=== PATIENT | male | born 1950 | race Caucasian/White ===

== ENCOUNTER 2018-05-01 22:11 | Emergency (ER) | payer MEDICARE, BC, SELFPAY ==
[2018-05-01] VITALS (22 sets, daily range): BP systolic 97–212; BP diastolic 52–196; PULSE 89–105; RESP 15–25; TEMP 37.1; O2SAT 98–100
--- NOTE | 2018-05-01 10:30 | DI.CT_ITS ---
SYMPTOM/DIAGNOSIS: RECON. S/P FALL DOWN STAIRS, R/O ACUTE FX CT THORACIC SPINE: The exam was reconstructed from the chest CT. There is a nondisplaced fracture of the proximal portion of the right 1st rib. A nondisplaced fracture of the left transverse process of L2 is noted. There is a minimal fracture involving the anterior superior end plate of T2. A small fracture is seen involving the right anterior aspect of T5. No additional fractures are identified. The end plate osteophytes are seen on the right side. IMPRESSION: Mild compression fractures of the anterior superior end plates of T2 and T5. Left T2 transverse process fracture and right 1st rib fracture. CT LUMBAR SPINE: The exam was reconstructed from the CT of the abdomen and pelvis. No fractures are identified. End plate osteophytes are seen. There are mild facet degenerative changes. IMPRESSION: Degenerative changes. No evidence of fracture.
[2018-05-01] MEDS: Lactated Ringers 1,000 ML 1000 ML IV (22:05)
--- NOTE | 2018-05-01 22:07 | DI.CT_ITS ---
SYMPTOM/DIAGNOSIS: S/P TRAUMA, R/O CHEST/ABD INJURY CT CHEST, ABDOMEN AND PELVIS: There is respiratory motion limiting the exam. No pneumothorax is seen. There is no pleural or pericardial effusion or evidence of pulmonary contusion. There is a nondisplaced fracture of the proximal right 1st rib. Fracture of the left T2 transverse process is seen as well as fracture of the anterior superior end plate of T-2 and T-5. ABDOMEN AND PELVIS: There is motion at the level of the liver and spleen. No solid organ or visceral injury is identified. The prostate is enlarged. The urinary bladder is somewhat distended. There is no free air or free fluid. No spine or pelvic fractures are seen. IMPRESSION: Mild compression fractures of the anterior superior end plates of T2 and T5. Fracture of the left transverse process of T2 and right proximal first rib.
[2018-05-01 22:15] LABS: Abs Immature Grans 0.06 k/cumm (0.0-0.09); Absolute Basophil Count 0.01 k/cumm (0.0-0.2); Absolute Eosinophil Count 0.21 k/cumm (0.0-0.7); Absolute Lymphocyte Count 2.34 k/cumm (1.2-3.4); Absolute Monocyte Count 0.56 k/cumm (0.11-0.7); Absolute Neutrophil Count 4.45 k/cumm (1.2-6.7); Basophils % 0.1; Eosinophils % 2.8; HCT 42.1 % (40.0-50.0); HGB 15.2 g/dL (13.5-17.5); Immature Grans % 0.8; Lymphocytes % 30.7; Mean Corp. HGB Concentration 36.1 g/dL (32.0-36.0); Mean Corpuscular Hemoglobin 32.9 pg (27.0-33.0); Mean Corpuscular Volume 91.1 fL (80-95); Mean Platelet Volume 9.4 fL (8.0-11.0); Monocytes % 7.3; Neutrophils % 58.3; Platelet Count 203 x1000/uL (130-400); RBC 4.62 m/cumm (4.50-6.00); RBC Distribution Width 12.3 % (11.8-14.1); White Blood Cell Count 7.63 k/cumm (4.4-10.8)
[2018-05-01 22:23] LABS: ETHANOL BLOOD 152.6 mg/dL (<3); Lipase 108 U/L (73-393)
[2018-05-01] MEDS: Omnipaque 350 MG/ML 100 ML BTL IJ (22:29)
[2018-05-01 22:30] LABS: ALT 31 U/L (12-78); AST 27 U/L (15-37); Albumin 3.7 g/dL (3.4-5.0); Alkaline Phosphatase 73 U/L (46-116); Anion Gap 14.9 mmol/L (3-11); BUN 14 mg/dL (7-18); Bilirubin, Total 0.4 mg/dL (0.2-1.0); CO2 23.1 mmol/L (21.0-32.0); CREATININE 1.13 mg/dL (0.70-1.30); Calcium 8.8 mg/dL (8.5-10.1); Chloride 103 mmol/L (98-107); Glucose 139 mg/dL (70-100); Potassium 3.7 mmol/L (3.5-5.1); Sodium 141 mmol/L (136-145); Total Protein 7.4 g/dL (6.4-8.2)
[2018-05-01] MEDS: Lidocaine 2% Jelly 6 ML SYR (22:30)
--- NOTE | 2018-05-01 22:30 | DI.CT_ITS ---
SYMPTOM/DIAGNOSIS: S/P HEAD INJURY, R/O ACUTE FRACTURE NONCONTRAST HEAD CT: No intracranial hemorrhage or skull fracture is seen. There is soft tissue swelling as well as air in the soft tissues of the right scalp. No foreign body is seen. The sinuses appear clear. The ventricles are normal in size. IMPRESSION: Large scalp laceration. No evidence of skull fracture, intracranial hemorrhage. CT CERVICAL SPINE: There is a nondisplaced fracture extending transversely through the dens, Type 2. There is also a fracture of the left occipital condyle which shows some comminution but no significant displacement. The alignment appears normal. 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 IMPRESSION: Nondisplaced Type II fracture of dens. Comminuted fracture of the left occipital condyle FACIAL CT: No facial fracture is seen. The exam is somewhat limited by patient motion. IMPRESSION: No evidence of facial fractures.
[2018-05-01 22:31] LABS: Troponin I < 0.02 ng/mL (0.00-0.06)
[2018-05-01 22:45] LABS: Bilirubin Negative (Negative); Blood Moderate (Negative); Clarity Clear; Glucose Negative (Negative); Ketones 15 mg/dL (Negative); Leukocyte Esterase Negative (Negative); Nitrite Negative (Negative); Urobilinogen 0.2 EU/dL (Up TO 0.2)
[2018-05-01 22:47] LABS: Prothrombin Time 9.6 sec (9.3-11.0)
[2018-05-01 22:56] LABS: Epithelial Cells Few HPF (Negative); WBC 0-2 HPF (0-5)
[2018-05-01 22:57] LABS: Bacteria Rare HPF (Negative); C & S Indicated? Yes; Casts Negative LPF (Negative); Crystals Negative HPF (Negative); Mucus Negative (Negative); Other Cells Few Renal (Negative)
[2018-05-01 23:01] LABS: *AMPHETAMINES SCREEN URINE Negative (Negative); *BARBITURATES SCREEN URINE Negative (Negative); *BENZODIAZEPINES SCREEN URINE Negative (Negative); Cannabinoids THC Negative (Negative); Cocaine Screen,Urine Negative (Negative); METHADONE URINE SCREEN Negative (Negative); OPIATES URINE SCREEN Negative (Negative)
[2018-05-01 23:03] LABS: Tricyclic Antidepressants Negative (Negative)
--- NOTE | 2018-05-01 23:11 | DI.VRAD_ITS ---
Addendum created by Zarina Michael MD on 05/01/2018 11:15:05 PM EST Findings discussed with Yvonne Shields 05/01/2018 11:14 PM EST. Initial report created on 05/01/2018 11:11:24 PM EST EXAM: CT Head Without Contrast EXAM DATE/TIME: 05/01/2018 10:07 PM CLINICAL HISTORY: 68 years old, male; Injury or trauma; Fall; Initial encounter; Blunt trauma (contusions or hematomas); Consciousness not specified; Injury date: 05/01/18; Injury details: PT fell down stairs landing on cement. Lacerations and pain in chest abd pelvis TECHNIQUE: Axial computed tomography images of the head/brain without contrast. All CT scans at this facility use at least one of these dose optimization techniques: automated exposure control; mA and/or kV adjustment per patient size (includes targeted exams where dose is matched to clinical indication); or iterative reconstruction. Coronal and sagittal reformatted images were created and reviewed. COMPARISON: No relevant prior studies available. FINDINGS: Brain: Normal. No hemorrhage. No significant white matter disease. No edema. Ventricles: Normal. No ventriculomegaly. Bones/joints: There is a nondisplaced comminuted fracture of the left occipital condyle extending into the atlantooccipital articulation. No other acute fracture. Sinuses: Normal as visualized. No acute sinusitis. Mastoid air cells: Normal as visualized. No mastoid effusion. Soft tissues: Large scalp laceration with subcutaneous emphysema. IMPRESSION: Left occipital condyle fracture. Superficial scalp injury without intra-cranial hemorrhage. EXAM: CT Maxillofacial Without Contrast EXAM DATE/TIME: 05/01/2018 10:07 PM CLINICAL HISTORY: 68 years old, male; Injury or trauma; Fall; Initial encounter; Blunt trauma (contusions or hematomas); Consciousness not specified; Injury date: 05/01/18; Injury details: PT fell down stairs landing on cement. Lacerations and pain in chest abd pelvis TECHNIQUE: Axial computed tomography images of the face without intravenous contrast. All CT scans at this facility use at least one of these dose optimization techniques: automated exposure control; mA and/or kV adjustment per patient size (includes targeted exams where dose is matched to clinical indication); or iterative reconstruction. Coronal and sagittal reformatted images were created and reviewed. COMPARISON: No relevant prior studies available. FINDINGS: Orbits: No acute intraorbital abnormality. Globes are unremarkable. Sinuses: Normal. No air-fluid levels. Bones/joints: No acute fracture. Soft tissues: No significant facial soft tissue swelling. IMPRESSION: No acute abnormality of the facial bones. EXAM: CT Cervical Spine Without Contrast EXAM DATE/TIME: 05/01/2018 10:07 PM CLINICAL HISTORY: 68 years old, male; Injury or trauma; Fall; Initial encounter; Blunt trauma (contusions or hematomas); Consciousness not specified; Injury date: 05/01/18; Injury details: PT fell down stairs landing on cement. Lacerations and pain in chest abd pelvis TECHNIQUE: Axial computed tomography images of the cervical spine without intravenous contrast. All CT scans at this facility use at least one of these dose optimization techniques: automated exposure control; mA and/or kV adjustment per patient size (includes targeted exams where dose is matched to clinical indication); or iterative reconstruction. Coronal and sagittal reformatted images were created and reviewed. COMPARISON: No relevant prior studies available. FINDINGS: Vertebrae: Acute fractures of the left first rib and T1 left transverse process. Nondisplaced acute type II odontoid fracture. Normal alignment. Discs/Spinal canal/Neural foramina: There is moderate multilevel central spinal stenosis, secondary to disc buldge/osteophytic spurring. Soft tissues: Unremarkable. Lungs: Lung apices are normal. IMPRESSION: Nondisplaced acute type II odontoid fracture. Acute nondisplaced T1 left transverse process and left first rib fractures. Dictated and Authenticated by: Zarina Michael MD. Ordering:JANET Russell MD
--- NOTE | 2018-05-01 23:12 | DI.VRAD_ITS ---
EXAM: CT Chest With Contrast EXAM DATE/TIME: 05/01/2018 10:09 PM CLINICAL HISTORY: 68 years old, male; Injury; Initial encounter; Blunt trauma; Injury date: 05/01/17; Injury details: Fell down stairs landing on cement TECHNIQUE: Axial computed tomography images of the chest with intravenous contrast. All CT scans at this facility use at least one of these dose optimization techniques: automated exposure control; mA and/or kV adjustment per patient size (includes targeted exams where dose is matched to clinical indication); or iterative reconstruction. Coronal and sagittal reformatted images were created and reviewed. CONTRAST: 100 ml of Omnipaque 350 administered intravenously. COMPARISON: No relevant prior studies available. FINDINGS: Lungs: Normal. No consolidation. No masses. Pleural space: Normal. No pneumothorax. No pleural effusion. Heart: Normal. No cardiomegaly. No pericardial effusion. Aorta: Normal. No aortic aneurysm. Lymph nodes: Unremarkable. No enlarged lymph nodes. Bones/joints: Acute fracture of the superior aspect of T2 and T5. Nondisplaced acute fracture of the left transverse process of T2. Nondisplaced acute fracture of the left first posteromedial rib. Question fracture of the superior endplate of T3. Soft tissues: Unremarkable. IMPRESSION: 1. Acute fracture of the superior aspect of T2 and T5. 2. Nondisplaced acute fracture of the left transverse process of T2. 3. Nondisplaced acute fracture of the left first posteromedial rib. 4. Question fracture of the superior endplate of T3. 5. No acute intrathoracic findings. EXAM: CT Abdomen and Pelvis With Contrast EXAM DATE/TIME: 05/01/2018 10:09 PM CLINICAL HISTORY: 68 years old, male; Injury; Initial encounter; Blunt trauma; Injury date: 05/01/17; Injury details: Fell down stairs landing on cement TECHNIQUE: Axial computed tomography images of the abdomen and pelvis with intravenous contrast. All CT scans at this facility use at least one of these dose optimization techniques: automated exposure control; mA and/or kV adjustment per patient size (includes targeted exams where dose is matched to clinical indication); or iterative reconstruction. Coronal and sagittal reformatted images were created and reviewed. CONTRAST: 100 ml of Omnipaque 350 administered intravenously. COMPARISON: No relevant prior studies available. FINDINGS: Lower thorax: No acute findings. ABDOMEN: Liver: Normal. No mass. Gallbladder and bile ducts: Normal. No calcified stones. No ductal dilation. Pancreas: Normal. No ductal dilation. Spleen: Normal. No splenomegaly. Adrenals: Normal. No mass. Kidneys and ureters: Normal. No hydronephrosis. Stomach and bowel: Normal. No obstruction. No mucosal thickening. Appendix: No evidence of appendicitis. PELVIS: Bladder: Unremarkable as visualized. Reproductive: Prominent prostate gland measuring 4.9 cm transversely. ABDOMEN and PELVIS: Intraperitoneal space: Normal. No free air. No significant fluid collection. Bones/joints: No acute fracture. Soft tissues: Small fat-containing umbilical hernia. Vasculature: Normal. No abdominal aortic aneurysm. Lymph nodes: Normal. No enlarged lymph nodes. Other findings: Impression. IMPRESSION: 1. No acute fracture. 2. Impression. No acute intra-abdominal or pelvic findings. EXAM: CT Thoracic Spine Without Contrast EXAM DATE/TIME: 05/01/2018 10:09 PM CLINICAL HISTORY: 68 years old, male; Injury; Initial encounter; Blunt trauma; Injury date: 05/01/17; Injury details: Fell down stairs landing on cement TECHNIQUE: Axial computed tomography images of the thoracic spine without intravenous contrast. COMPARISON: No relevant prior studies available. FINDINGS: Vertebrae: Acute fracture of the superior aspect of T2 and T5. Nondisplaced acute fracture of the left transverse process of T2. Nondisplaced acute fracture of the left first posteromedial rib. Question fracture of the superior endplate of T3. Discs/Spinal canal/Neural foramina: No spinal stenosis. No neural foraminal narrowing. Soft tissues: Unremarkable. IMPRESSION: 1. Acute fracture of the superior aspect of T2 and T5. 2. Nondisplaced acute fracture of the left transverse process of T2. 3. Nondisplaced acute fracture of the left first posteromedial rib. 4. Question fracture of the superior endplate of T3. EXAM: CT Lumbar Spine Without Contrast EXAM DATE/TIME: 05/01/2018 10:09 PM CLINICAL HISTORY: 68 years old, male; Injury; Initial encounter; Blunt trauma; Injury date: 05/01/17; Injury details: Fell down stairs landing on cement TECHNIQUE: Axial computed tomography images of the lumbar spine without intravenous contrast. COMPARISON: No relevant prior studies available. FINDINGS: Vertebrae: No acute fracture. Normal alignment. Discs/Spinal canal/Neural foramina: No spinal stenosis. No neural foraminal narrowing. Soft tissues: Unremarkable. IMPRESSION: No acute findings. Dictated and Authenticated by: Mango Gaines MD. Ordering:JANET Russell MD
--- NOTE | 2018-05-01 23:32 | W.ED.GENAD ---
Discharge Plan Disposition Patient Disposition: [facility] Condition: Serious Discharge Details Chief Complaint: Trauma Clinical Impression: Nondisplaced type II dens fracture, Fracture of thoracic vertebra, Fracture of one rib of left side, Closed occipital fracture, Fall at home, Alcohol intoxication Reason For Visit: LEN Primary Care Provider: Peggy Breaux ED Provider: Yvonne Shields Home Meds and New Rx's Prescriptions: No Action aspirin [Aspirin Low-Strength] 81 MG tablet,chewable 81 mg PO DAILY RF: 0 multivitamin [Daily Vitamin] 1 EACH tablet 1 ea PO RF: 0 triamcinolone acetonide 15 GM cream 1 film Topical 2-4 times daily PRN Qty: 2 RF: 1 sildenafil [Viagra] 100 MG tablet 50 mg PO DAILY PRNQty: 10 RF: 3 Discharge Data Discharge Date/Time-TO BE ENTERED AT DEPARTURE: 05/02/18 00:34 Medical Decision Making 68yo M w/ no past medical history who presents with head injury and neck pain s/p fall down 12 stairs at home while intoxicated. Pt was able to ambulate back to bed after fall. He was found by family. Pt is normally A & O x4, and is was A & O x2 per ems and on arrival to ED. States it is 2018 and does not recall events tonight. States he drank 4 beers. He is c/o only of neck pain. His vitals are within normal limits. His airway is intact and he is speaking in full sentences. He has a significantly large scalp laceration and no c-spine tenderness. Chest and abdomen nontender. He is moving all extremities. There is no obvious extremity injury or deformity. Main concern at this point would be for skull fracture, brain injury, spine fractures, chest or abdomen injury. Will place an IV, bolus IV fluids, labs, EKG, alcohol, tetanus, and CT imaging. 2314 --labs and imaging reviewed. Alcohol 152. Remainder of labs unremarkable. CT imaging notes a non-displaced type II odontoid fracture, left occipital condyle fracture, and acute nondisplaced T1 left transverse process fracture, and acute fracture of superior aspect of T2 and T5, left transverse process fracture of T2, nondisplaced acute fracture of left first posterior medial rib, and questionable fracture of superior endplate of T3. Remainder of chest and abdomen unremarkable. Facial bone CT unremarkable. 2335 -- d/w [facility] trauma - accepting physician Dr. Holguin. As patient is awake alert, oriented, hemodynamically stable and moving all extremities, do not see an indication for transfer by [facility] and trauma physician is agreeable. He states based on patient's injuries, they are nonoperative, and will likely observe the next 1-2 days, and discharge if remainder of stay uneventful. Medical Records Medical records reviewed: Yes I reviewed the patient's medical records. Imaging Data Radiologic Study: Radiologist's impression: CT Head Without Contrast FINDINGS: Brain: Normal. No hemorrhage. No significant white matter disease. No edema. Ventricles: Normal. No ventriculomegaly. Bones/joints: There is a nondisplaced comminuted fracture of the left occipital condyle extending into the atlantooccipital articulation. No other acute fracture. MAEVE HARRELL Preliminary Radiology Report Page 2 of 3 Sinuses: Normal as visualized. No acute sinusitis. Mastoid air cells: Normal as visualized. No mastoid effusion. Soft tissues: Large scalp laceration with subcutaneous emphysema. IMPRESSION: Left occipital condyle fracture. Superficial scalp injury without intra-cranial hemorrhage. CT Maxillofacial Without Contrast EXAM DATE/TIME: 05/01/2018 10:07 PM FINDINGS: Orbits: No acute intraorbital abnormality. Globes are unremarkable. Sinuses: Normal. No air-fluid levels. Bones/joints: No acute fracture. Soft tissues: No significant facial soft tissue swelling. IMPRESSION: No acute abnormality of the facial bones. CT Cervical Spine Without Contrast FINDINGS: Vertebrae: Acute fractures of the left first rib and T1 left transverse process. Nondisplaced acute type II odontoid fracture. Normal alignment. Discs/Spinal canal/Neural foramina: There is moderate multilevel central spinal stenosis, secondary to disc buldge/osteophytic spurring. Soft tissues: Unremarkable. Lungs: Lung apices are normal. IMPRESSION: Nondisplaced acute type II odontoid fracture. Acute nondisplaced T1 left transverse process and left first rib fractures. CT Chest With Contrast EXAM DATE/TIME: 05/01/2018 10:09 PM FINDINGS: Lungs: Normal. No consolidation. No masses. Pleural space: Normal. No pneumothorax. No pleural effusion. Heart: Normal. No cardiomegaly. No pericardial effusion. Aorta: Normal. No aortic aneurysm. Lymph nodes: Unremarkable. No enlarged lymph nodes. Bones/joints: Acute fracture of the superior aspect of T2 and T5. Nondisplaced acute fracture of the left transverse process of T2. Nondisplaced acute fracture of the left first posteromedial rib. Question fracture of the superior endplate of T3. Soft tissues: Unremarkable. IMPRESSION: 1. Acute fracture of the superior aspect of T2 and T5. 2. Nondisplaced acute fracture of the left transverse process of T2. 3. Nondisplaced acute fracture of the left first posteromedial rib. 4. Question fracture of the superior endplate of T3. 5. No acute intrathoracic findings. CT Abdomen and Pelvis With Contrast FINDINGS: Lower thorax: No acute findings. ABDOMEN: Liver: Normal. No mass. Gallbladder and bile ducts: Normal. No calcified stones. No ductal dilation. Pancreas: Normal. No ductal dilation. Spleen: Normal. No splenomegaly. Adrenals: Normal. No mass. Kidneys and ureters: Normal. No hydronephrosis. Stomach and bowel: Normal. No obstruction. No mucosal thickening. Appendix: No evidence of appendicitis. PELVIS: Bladder: Unremarkable as visualized. Reproductive: Prominent prostate gland measuring 4.9 cm transversely. ABDOMEN and PELVIS: Intraperitoneal space: Normal. No free air. No significant fluid collection. Bones/joints: No acute fracture. Soft tissues: Small fat-containing umbilical hernia. Vasculature: Normal. No abdominal aortic aneurysm. Lymph nodes: Normal. No enlarged lymph nodes. Other findings: Impression. IMPRESSION: 1. No acute fracture. 2. No acute intra-abdominal or pelvic findings. CT Thoracic Spine Without Contrast FINDINGS: Vertebrae: Acute fracture of the superior aspect of T2 and T5. Nondisplaced acute fracture of the left transverse process of T2. Nondisplaced acute fracture of the left first posteromedial rib. Question fracture of the superior endplate of T3. Discs/Spinal canal/Neural foramina: No spinal stenosis. No neural foraminal narrowing. Soft tissues: Unremarkable. IMPRESSION: 1. Acute fracture of the superior aspect of T2 and T5. 2. Nondisplaced acute fracture of the left transverse process of T2. 3. Nondisplaced acute fracture of the left first posteromedial rib. 4. Question fracture of the superior endplate of T3. CT Lumbar Spine Without Contrast FINDINGS: Vertebrae: No acute fracture. Normal alignment. Discs/Spinal canal/Neural foramina: No spinal stenosis. No neural foraminal narrowing. Soft tissues: Unremarkable. IMPRESSION: No acute findings. Lab Data Lab results reviewed: Yes I reviewed the patient's lab results. 05/01/18 22:34 Urine - Reflex from Ua Urine Culture - Pending Laboratory Tests Range/Units 05/01/18 05/01/18 05/01/18 22:00 22:00 22:00 WBC (4.4-10.8) k/cumm RBC (4.50-6.00) m/cumm Hgb (13.5-17.5) g/dL Hct (40.0-50.0) % MCV (80-95) fL MCH (27.0-33.0) pg MCHC (32.0-36.0) g/dL RDW (11.8-14.1) % Plt Count (130-400) x1000/uL MPV (8.0-11.0) fL Immature Gran % Neutrophils % Lymphocytes % Monocytes % Eosinophils % Basophils % Absolute Neutrophils (1.2-6.7) k/cumm Absolute Lymphocytes (1.2-3.4) k/cumm Absolute Monocytes (0.11-0.7) k/cumm Absolute Eosinophils (0.0-0.7) k/cumm Absolute Basophils (0.0-0.2) k/cumm PT (9.3-11.0) sec 9.6 INR (0.9-1.1) 1.0 APTT (21.0-31.4) sec 19.4 L Sodium (136-145) mmol/L 141 Potassium (3.5-5.1) mmol/L 3.7 Chloride (98-107) mmol/L 103 Carbon Dioxide (21.0-32.0) mmol/L 23.1 Anion Gap (3-11) mmol/L 14.9 H BUN (7-18) mg/dL 14 Creatinine (0.70-1.30) mg/dL 1.13 Estimated GFR/1.73 m2 (mL/min/1.73m2) >= 60.00 Glucose (70-100) mg/dL 139 H Calcium (8.5-10.1) mg/dL 8.8 Magnesium (1.8-2.4) mg/dL 2.0 Total Bilirubin (0.2-1.0) mg/dL 0.4 AST (15-37) U/L 27 ALT (12-78) U/L 31 Alkaline Phosphatase (46-116) U/L 73 Troponin I (0.00-0.06) ng/mL < 0.02 Total Protein (6.4-8.2) g/dL 7.4 Albumin (3.4-5.0) g/dL 3.7 Lipase (73-393) U/L 108 Urine Color (Yellow) Urine Clarity Urine pH (5-8) Ur Specific [place] (1.005-1.025) Urine Protein (Negative) mg/dL Urine Ketones (Negative) mg/dL Urine Blood (Negative) Urine Nitrite (Negative) Urine Bilirubin (Negative) Urine Urobilinogen (Up TO 0.2) EU/dL Ur Leukocyte Esterase (Negative) Urine RBC (0-2) Urine WBC (0-5) HPF Ur Epithelial Cells (Negative) HPF Urine Crystals (Negative) HPF Urine Bacteria (Negative) HPF Urine Casts (Negative) LPF Urine Mucus (Negative) Urine Other (Negative) Ur Culture Indicated? Urine Glucose (Negative) mg/dL Urine Opiates Screen (Negative) Urine Methadone Screen (Negative) Ur Barbiturates Screen (Negative) Ur Tricyclics Screen (Negative) Ur Amphetamines Screen (Negative) U Benzodiazepines Scrn (Negative) Urine Cocaine Screen (Negative) Ur THC Screen (Negative) Ethyl Alcohol (<3) mg/dL 152.6 Range/Units 05/01/18 05/01/18 05/01/18 22:00 22:34 22:34 WBC (4.4-10.8) k/cumm 7.63 RBC (4.50-6.00) m/cumm 4.62 Hgb (13.5-17.5) g/dL 15.2 Hct (40.0-50.0) % 42.1 MCV (80-95) fL 91.1 MCH (27.0-33.0) pg 32.9 MCHC (32.0-36.0) g/dL 36.1 H RDW (11.8-14.1) % 12.3 Plt Count (130-400) x1000/uL 203 MPV (8.0-11.0) fL 9.4 Immature Gran % 0.8 Neutrophils % 58.3 Lymphocytes % 30.7 Monocytes % 7.3 Eosinophils % 2.8 Basophils % 0.1 Absolute Neutrophils (1.2-6.7) k/cumm 4.45 Absolute Lymphocytes (1.2-3.4) k/cumm 2.34 Absolute Monocytes (0.11-0.7) k/cumm 0.56 Absolute Eosinophils (0.0-0.7) k/cumm 0.21 Absolute Basophils (0.0-0.2) k/cumm 0.01 PT (9.3-11.0) sec INR (0.9-1.1) APTT (21.0-31.4) sec Sodium (136-145) mmol/L Potassium (3.5-5.1) mmol/L Chloride (98-107) mmol/L Carbon Dioxide (21.0-32.0) mmol/L Anion Gap (3-11) mmol/L BUN (7-18) mg/dL Creatinine (0.70-1.30) mg/dL Estimated GFR/1.73 m2 (mL/min/1.73m2) Glucose (70-100) mg/dL Calcium (8.5-10.1) mg/dL Magnesium (1.8-2.4) mg/dL Total Bilirubin (0.2-1.0) mg/dL AST (15-37) U/L ALT (12-78) U/L Alkaline Phosphatase (46-116) U/L Troponin I (0.00-0.06) ng/mL Total Protein (6.4-8.2) g/dL Albumin (3.4-5.0) g/dL Lipase (73-393) U/L Urine Color (Yellow) Yellow Urine Clarity Clear Urine pH (5-8) 7.0 Ur Specific [place] (1.005-1.025) 1.010 Urine Protein (Negative) mg/dL Negative Urine Ketones (Negative) mg/dL 15 H Urine Blood (Negative) Moderate H Urine Nitrite (Negative) Negative Urine Bilirubin (Negative) Negative Urine Urobilinogen (Up TO 0.2) EU/dL 0.2 Ur Leukocyte Esterase (Negative) Negative Urine RBC (0-2) 5-10 H Urine WBC (0-5) HPF 0-2 Ur Epithelial Cells (Negative) HPF Few Urine Crystals (Negative) HPF Negative Urine Bacteria (Negative) HPF Rare Urine Casts (Negative) LPF Negative Urine Mucus (Negative) Negative Urine Other (Negative) Few renal Ur Culture Indicated? Yes Urine Glucose (Negative) mg/dL Negative Urine Opiates Screen (Negative) Negative Urine Methadone Screen (Negative) Negative Ur Barbiturates Screen (Negative) Negative Ur Tricyclics Screen (Negative) Negative Ur Amphetamines Screen (Negative) Negative U Benzodiazepines Scrn (Negative) Negative Urine Cocaine Screen (Negative) Negative Ur THC Screen (Negative) Negative Ethyl Alcohol (<3) mg/dL ECG Data Attestation: I personally reviewed and interpreted this ECG (s) as follows: Interpretation: rate of 98, artifact. appears sinus, no acute ST elevation or depression. QTc 420, QRS 104 HPI General Mode of arrival: ambulatory. Date/Time Provider Initiated Documentation: 05/01/18 22:21. Limitations to Documentation: no limitations. Information obtained by: patient. HPI Narrative: Patient is a 68-year-old male with no past medical history who presents after a fall down 12 stairs at home while intoxicated. Patient states he remembers being at a bar [employer] in which she had approximately 4 beers but does not remember anything until traveling in the ambulance on the way here. EMS states they were called by family member who checked on patient veda and found him in bed with blood around his head. He apparently had fallen down approximately 12 stairs onto a cement floor at home. Patient states he does not member any of these events. EMS states that patient is a and O x4 at baseline, and was a and O x2 per their assessment. Patient denies any headache and is complaining only of neck pain. He denies any chest or abdominal pain. Related Data Home Medications Medication Instructions Recorded Confirmed aspirin [Aspirin Low-Strength] 81 mg PO DAILY tab-cap 04/21/13 05/01/18 multivitamin [Daily Vitamin] 1 ea PO 04/21/13 triamcinolone acetonide 1 film TOPICAL 2-4 times daily PRN 04/22/17 05/01/18 #2 tube sildenafil [Viagra] 50 mg PO DAILY PRN #10 tab 06/09/17 05/01/18 Previous Rx's Medication Instructions Recorded triamcinolone acetonide 1 film TOPICAL 2-4 times daily PRN 04/22/17 #2 tube Allergies Allergy/AdvReac Type Severity Reaction Status Date / Time No Known Allergies Allergy Unverified 05/01/18 22:04 General Stated Complaint: Trauma VONNIE: 2 Review of Systems Review of Systems All systems reviewed & are unremarkable except as noted in HPI and below Constitutional Reports as per HPI, Denies chills and Denies fever(s) Eyes Denies blurry vision ENT Denies dizziness, Reports neck pain, Denies sore throat and Denies throat swelling Cardiovascular Denies chest pain and Denies dyspnea Respiratory Denies dyspnea Gastrointestinal Denies abdominal pain, Denies diarrhea and Denies vomiting Genitourinary Denies hematuria and Denies dysuria Musculoskeletal Denies back pain, Reports neck pain and Denies numbness Integumentary/Breasts Denies lesions and Denies rash Neurologic Denies dizziness and Denies numbness Allergic/Immunologic Denies throat swelling [facility] Medical History No significant past medical history (Acute) Surgical History No significant past surgical history (Acute) Colonoscopy - IV Sedation (~2005) Family History Father Alcohol abuse Personal history of malignant neoplasm Social History Smoking/Tobacco Use Status: Never alcohol intake: current alcohol intake frequency: a few times a month substance use type: does not use Exam Const General: cooperative, healthy appearing, anxious and other (hyperventilating) Orientation: alert, awake, oriented to person, oriented to place and other (states thought 2018 or 2019) [facility] Head: normal to inspection Head images: 1. extensive large laceration down to skull, approximately 20cm extending from R side of forehead back to occipital region. Portion in center of lac stellate and jagged. Ears: hearing grossly normal bilaterally, external ears normal and TM's normal bilaterally General nose exam: external nose normal Face and sinus: normal facial exam Mouth: oral mucosae normal Teeth and gingiva: dentition normal Eyes General: appearance normal, both eyes and all related structures Eyelids: eyelids normal Pupils: PERRL EOM: EOM intact bilaterally Neck Neck: normal visual inspection Lymphatic: no lymphadenopathy noted Chest Chest: normal inspection of the chest and no tenderness Resp Effort & Inspection: normal respiratory effort and able to speak in complete sentences Auscultation: clear to auscultation bilaterally Cardio Rate: regular rate Rhythm: regular rhythm GI Inspection: normal to inspection Palpation: soft, not firm, no guarding, no hepatosplenomegaly, no masses and nontender Auscultation: normal bowel sounds Back/Spine/Pelvis Thoracic/Lumbar Spine: No thoracic spinal tenderness and No lumbar spinal tenderness Pelvis: no pain with anterior-posterior compression and other (no pelvis instability ) Coccyx: other (no pelvis instability ) Skin General skin exam: no rashes or lesions noted Neuro General: alert, awake, oriented Patient Orientation: Person and Place and moves all extremities Cognition: normal cognition Speech: speech normal Gait: normal gait Motor: muscle tone normal throughout and strength 5/5 throughout Sensory Exam: no sensory deficits noted Extrem General: normal to inspection, full ROM and normal capillary refill Psych Appearance: grossly normal Mental Status: mental status grossly normal Speech and Movement: speech and movement normal Affect: normal affect Thought Process: normal Course Vital Signs Temperature 98.8 F 05/01/18 22:05 Pulse 98 H 05/01/18 22:05 Respiratory Rate 24 05/01/18 22:05 Blood Pressure 136/99 H 05/01/18 22:05 Pulse Oximetry 98 05/01/18 22:05 Temperature 98.8 F 05/01/18 22:05 Pulse 97 H 05/01/18 23:16 Pulse 100 H 05/01/18 23:20 Respiratory Rate 25 H 05/01/18 23:20 Respiratory Effort 05/01/18 23:07 Respiratory Depth Normal 05/01/18 23:07 Respiratory Pattern Normal 05/01/18 23:07 Blood Pressure 155/125 H 05/01/18 23:16 Blood Pressure Mean 133 05/01/18 23:16 Blood Pressure Position Supine 05/01/18 22:05 Pulse Oximetry 99 05/01/18 23:20 Oxygen Delivery Method Room Air 05/01/18 23:06 Oxygen Flow Rate 0 05/01/18 23:06 Pain Level 0 05/01/18 22:52 Lab/Test Results Lab/Test Results: 05/01/18 22:34 Urine - Reflex from Ua Urine Culture - Pending Laboratory Tests Range/Units 05/01/18 05/01/18 05/01/18 22:00 22:00 22:00 WBC (4.4-10.8) k/cumm RBC (4.50-6.00) m/cumm Hgb (13.5-17.5) g/dL Hct (40.0-50.0) % MCV (80-95) fL MCH (27.0-33.0) pg MCHC (32.0-36.0) g/dL RDW (11.8-14.1) % Plt Count (130-400) x1000/uL MPV (8.0-11.0) fL Immature Gran % Neutrophils % Lymphocytes % Monocytes % Eosinophils % Basophils % Absolute Neutrophils (1.2-6.7) k/cumm Absolute Lymphocytes (1.2-3.4) k/cumm Absolute Monocytes (0.11-0.7) k/cumm Absolute Eosinophils (0.0-0.7) k/cumm Absolute Basophils (0.0-0.2) k/cumm PT (9.3-11.0) sec 9.6 INR (0.9-1.1) 1.0 Sodium (136-145) mmol/L 141 Potassium (3.5-5.1) mmol/L 3.7 Chloride (98-107) mmol/L 103 Carbon Dioxide (21.0-32.0) mmol/L 23.1 Anion Gap (3-11) mmol/L 14.9 H BUN (7-18) mg/dL 14 Creatinine (0.70-1.30) mg/dL 1.13 Estimated GFR/1.73 m2 (mL/min/1.73m2) >= 60.00 Glucose (70-100) mg/dL 139 H Calcium (8.5-10.1) mg/dL 8.8 Magnesium (1.8-2.4) mg/dL 2.0 Total Bilirubin (0.2-1.0) mg/dL 0.4 AST (15-37) U/L 27 ALT (12-78) U/L 31 Alkaline Phosphatase (46-116) U/L 73 Troponin I (0.00-0.06) ng/mL < 0.02 Total Protein (6.4-8.2) g/dL 7.4 Albumin (3.4-5.0) g/dL 3.7 Lipase (73-393) U/L 108 Urine Color (Yellow) Urine Clarity Urine pH (5-8) Ur Specific [place] (1.005-1.025) Urine Protein (Negative) mg/dL Urine Ketones (Negative) mg/dL Urine Blood (Negative) Urine Nitrite (Negative) Urine Bilirubin (Negative) Urine Urobilinogen (Up TO 0.2) EU/dL Ur Leukocyte Esterase (Negative) Urine RBC (0-2) Urine WBC (0-5) HPF Ur Epithelial Cells (Negative) HPF Urine Crystals (Negative) HPF Urine Bacteria (Negative) HPF Urine Casts (Negative) LPF Urine Mucus (Negative) Urine Other (Negative) Ur Culture Indicated? Urine Glucose (Negative) mg/dL Urine Opiates Screen (Negative) Urine Methadone Screen (Negative) Ur Barbiturates Screen (Negative) Ur Tricyclics Screen (Negative) Ur Amphetamines Screen (Negative) U Benzodiazepines Scrn (Negative) Urine Cocaine Screen (Negative) Ur THC Screen (Negative) Ethyl Alcohol (<3) mg/dL 152.6 Range/Units 05/01/18 05/01/18 05/01/18 22:00 22:34 22:34 WBC (4.4-10.8) k/cumm 7.63 RBC (4.50-6.00) m/cumm 4.62 Hgb (13.5-17.5) g/dL 15.2 Hct (40.0-50.0) % 42.1 MCV (80-95) fL 91.1 MCH (27.0-33.0) pg 32.9 MCHC (32.0-36.0) g/dL 36.1 H RDW (11.8-14.1) % 12.3 Plt Count (130-400) x1000/uL 203 MPV (8.0-11.0) fL 9.4 Immature Gran % 0.8 Neutrophils % 58.3 Lymphocytes % 30.7 Monocytes % 7.3 Eosinophils % 2.8 Basophils % 0.1 Absolute Neutrophils (1.2-6.7) k/cumm 4.45 Absolute Lymphocytes (1.2-3.4) k/cumm 2.34 Absolute Monocytes (0.11-0.7) k/cumm 0.56 Absolute Eosinophils (0.0-0.7) k/cumm 0.21 Absolute Basophils (0.0-0.2) k/cumm 0.01 PT (9.3-11.0) sec INR (0.9-1.1) Sodium (136-145) mmol/L Potassium (3.5-5.1) mmol/L Chloride (98-107) mmol/L Carbon Dioxide (21.0-32.0) mmol/L Anion Gap (3-11) mmol/L BUN (7-18) mg/dL Creatinine (0.70-1.30) mg/dL Estimated GFR/1.73 m2 (mL/min/1.73m2) Glucose (70-100) mg/dL Calcium (8.5-10.1) mg/dL Magnesium (1.8-2.4) mg/dL Total Bilirubin (0.2-1.0) mg/dL AST (15-37) U/L ALT (12-78) U/L Alkaline Phosphatase (46-116) U/L Troponin I (0.00-0.06) ng/mL Total Protein (6.4-8.2) g/dL Albumin (3.4-5.0) g/dL Lipase (73-393) U/L Urine Color (Yellow) Yellow Urine Clarity Clear Urine pH (5-8) 7.0 Ur Specific [place] (1.005-1.025) 1.010 Urine Protein (Negative) mg/dL Negative Urine Ketones (Negative) mg/dL 15 H Urine Blood (Negative) Moderate H Urine Nitrite (Negative) Negative Urine Bilirubin (Negative) Negative Urine Urobilinogen (Up TO 0.2) EU/dL 0.2 Ur Leukocyte Esterase (Negative) Negative Urine RBC (0-2) 5-10 H Urine WBC (0-5) HPF 0-2 Ur Epithelial Cells (Negative) HPF Few Urine Crystals (Negative) HPF Negative Urine Bacteria (Negative) HPF Rare Urine Casts (Negative) LPF Negative Urine Mucus (Negative) Negative Urine Other (Negative) Few renal Ur Culture Indicated? Yes Urine Glucose (Negative) mg/dL Negative Urine Opiates Screen (Negative) Negative Urine Methadone Screen (Negative) Negative Ur Barbiturates Screen (Negative) Negative Ur Tricyclics Screen (Negative) Negative Ur Amphetamines Screen (Negative) Negative U Benzodiazepines Scrn (Negative) Negative Urine Cocaine Screen (Negative) Negative Ur THC Screen (Negative) Negative Ethyl Alcohol (<3) mg/dL Critical Care Time Total Critical Care Time: 30
[2018-05-02] VITALS: PULSE 104; RESP 14; O2SAT 99
[2018-05-02 00:01] VITALS: BP 152/74; PULSE 101; PULSE 105; RESP 9; O2SAT 99
[2018-05-02 00:10] VITALS: PULSE 102; RESP 17; O2SAT 96
[2018-05-02 00:16] VITALS: BP 132/109; PULSE 102; PULSE 108; RESP 13
[2018-05-02 00:24] LABS: PTT Activated 19.4 sec (21.0-31.4)
== END 2018-05-02 00:34 | disposition short-term general hospital (02) ==
PROVIDERS: Emergency Provider Physician Assistant; PCP Nurse Practitioner Family
DX: S12.112A Nondisplaced Type II dens fracture, initial encounter for closed fracture (principal); S02.113A Unspecified occipital condyle fracture, initial encounter for closed fracture; S22.018A Other fracture of first thoracic vertebra, initial encounter for closed fracture; S22.32XA Fracture of one rib, left side, initial encounter for closed fracture; S22.028A Other fracture of second thoracic vertebra, initial encounter for closed fracture; S22.058A Other fracture of T5-T6 vertebra, initial encounter for closed fracture; S01.01XA Laceration without foreign body of scalp, initial encounter; R40.2412 Glasgow coma scale score 13-15, at arrival to emergency department; F10.120 Alcohol abuse with intoxication, uncomplicated; Y90.6 Blood alcohol level of 120-199 mg/100 ml; W10.8XXA Fall (on) (from) other stairs and steps, initial encounter
CPT/HCPCS: 36415; 74177; 80053; 80307; 83690; 93005; 96360; 96361; 99291; 70450; 70486; 71260; 72125; 80320; 81003; 81015; 83735; 84484; 85025; 85610; 85730; 87086; 93010; J3490

== ENCOUNTER 2018-05-06 15:15 | Inpatient (IN) | payer MEDICARE, BC, SELFPAY ==
[2018-05-06 15:00] VITALS: BP 155/93; PULSE 75; RESP 18; TEMP 36.8; O2SAT 99
--- NOTE | 2018-05-06 15:50 | CM.SBPSYCH ---
- If Service Date Differs Date of service: 05/06/18 Time of Service: 15:50 SB Psychosocial/Act.Assessment - Hospital Admission Admission Date: 05/06/18 Admission From:: [facility] Diagnosis:: S/P Multiple Trauma - Swing Bed Admission Swing Bed Admit Date:: 05/06/18 Swing Bed Level of Care: Level 1/SNF - Social Supports PREVIOUS FUNCTIONAL STATUS/SOCIAL/FAMILY SUPPORTS:: Hai resides in [place], [place]. He is and reports a son and daughter who reside locally, as well as grandchildren. 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 He is independent with all ADLs at baseline and reports wanting to return to work duties as soon as possible. - Prior to Admission Living Arrangements/Environment Prior to Admission:: aHi resides in his own home and was independent with all ADLs prior to this injury/event. 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 Voacation:: [employer] - [place]: No [place]'s Spouse: No - Benefits Financial: Medicare, Commerical ([facility]) - [employer] Active Religion Member:: No Religion Affliation: Baptist Will Religion Members or Unit Educator Visit:: No - Advance Directives for Healthcare If no AD, do you want more information:: Yes - Interests Hobbies:: Active; workouts 3x/wk, spending time with family - Present Functional Status Physical Abilities:: Limited due to precautions Cognitive:: mTBI-requiring low stimulation Communication:: appropriate Behavior:: appropriate - Medical History PAST MEDICAL HISTORY/PAST SURGICAL HISTORY:: No significant PMH General Health:: In recovery-good baseline health Past Psychiatric Treatment:: N/A Other:: Hai reports some dream like sequences when falling asleep, reports no current nightmares or anxiety post trauma. Shares some dizziness and vertigo as well as random pain throughout his head and face - Admission Data Reason for Swing Bed Admission:: PT/OT post traumatic fall resulting in multiple fractures-requires Hard Collar with C-spine precautions Discharge Plan:: Home with VNA supports when ready per MD/PT/OT. Assessment: Short term rehab to accomodate post trauma precautions and recovery. Hai will require close monitoring of symptoms to ensure no further issues during recovery. Kiln Puller: Codie Holt Date Assessment was completed:: 05/06/18
--- NOTE | 2018-05-06 16:33 | W.PM.HP.N ---
Date of service: 05/06/18 Time of Service: 16:36 Assessment and Plan (1) Dens fracture: Current visit: Yes Status: Acute Needs to wear Cervical Collar intact essentially at all times, with limited activity to include no bending, twisting, or lifting. Instructions on care, showering, etc. provided in detail by [facility] - noted and to be followed. Will require inpatient physical therapy prior to discharge for SNF. Follow-up imaging as scheduled by [facility]. (2) Scalp laceration: Current visit: Yes Status: Acute Needs front 5 edwige removed on 05/07 to reduce prominence of scar - order placed. Remainder of edwige to be removed at a later time. (3) Alcohol use: Current visit: Yes Status: Acute Patient with intoxication both by history and by subsequent alcohol level on the night of his fall. Does not appear to have an abuse history, merely intoxicated on the night of his fall. No prior history of withdrawl in the past. Doubt need for CIWA protocol, but will monitor for any signs of withdrawl while he is hospitalized. (4) Closed fracture of thoracic vertebral body: Current visit: Yes Status: Acute (5) Vertebral artery occlusion: Current visit: Yes Status: Acute Noted left Occipital Condyle fracture and left vertebral artery occlusion/dissection. (6) DVT prophylaxis: Current visit: Yes Status: Acute SCDs. Patient is ambulatory. History of Present Illness Chief Complaint: Fall, Cervical Fracture Narrative: Pleasant 68 year old man with a past medical history significant for likely excessive alcohol use without true ETOH abuse, presents as transfer from [facility] for Swing bed placement. Mr. Taylor was initially seen on 05/02 at [facility] Emergency Department after a fall at home. He has a history of 2 glass consumption of wine nightly. On the night of his presentation he had been out at the [employer] watching the football game. He admitted to become slightly inebriated, and upon return home suffered a fall down the stairs of his basement. He suffered a LOC, and upon regaining consciousness apparently crawled up the stairs and returned to bed. His girlfriend then called his daughter who came by and found him to be bleeding and with a large scalp laceration, and he was transported to the ED via EMS for further evaluation. Further evaluation revealed evidence of a type II Dens Fracture. The patient was transferred to [facility] for close monitoring. Following a 4 day hospitalization at [facility] Mr. Taylor is transferred back for a Swing Bed admission for further inpatient Physical Therapy prior to discharge to a SNF. Final diagnosis at time of discharge is a minimally displaced Type II Dens Fracture, Comminuted fracture of the left occipital condyle, Left sided 1st and 2nd rib fracture, T2 & T5 Vertebral Body Fractures, and a complex Scalp Laceration. There is also note of a left Vertebral Artery Occlusion/Dissection. Review of Systems Review of Systems All systems reviewed & are unremarkable except as noted in HPI and below and Unobtainable due to (Varying degrees of neck pain pending type of activity. ) [facility] Medical History No significant past medical history (Acute) Surgical History No significant past surgical history (Acute) Colonoscopy - IV Sedation (~2005) Family History Father Alcohol abuse Personal history of malignant neoplasm Social History Smoking/Tobacco Use Status: Never alcohol intake: current alcohol intake frequency: a few times a month substance use type: does not use Meds Home Medications Medication Instructions Recorded Confirmed Type aspirin [Aspirin Low-Strength] 81 mg PO DAILY tab-cap 04/21/13 05/01/18 History multivitamin [Daily Vitamin] 1 ea PO 04/21/13 History triamcinolone acetonide 1 film TOPICAL 2-4 times daily PRN 04/22/17 05/01/18 Rx #2 tube sildenafil [Viagra] 50 mg PO DAILY PRN #10 tab 06/09/17 05/01/18 History Allergies Allergy/AdvReac Type Severity Reaction Status Date / Time No Known Allergies Allergy Unverified 05/01/18 22:04 Exam Narrative Exam Narrative: General: Patient appears comfortable, AAOX3, NAD. Cervical Collar in place. Neck: Supple CV: Regular, nontachycardic, S1S2, No rubs, murmurs, or gallops. Pulmonary: Clear to auscultation bilaterally, no crackles, wheezing, or rhonchi Abdomen: + Bowel Sounds, soft, nontender, nondistended Vascular: No lower extremity edema Psych: Normal mood and affect. Results Imaging Additional studies: Exam(s) a CT:CT thoracic & lumbar spine rec SYMPTOM/DIAGNOSIS: RECON. S/P FALL DOWN STAIRS, R/O ACUTE FX CT THORACIC SPINE: The exam was reconstructed from the chest CT. There is a nondisplaced fracture of the proximal portion of the right 1st rib. A nondisplaced fracture of the left transverse process of L2 is noted. There is a minimal fracture involving the anterior superior end plate of T2. A small fracture is seen involving the right anterior aspect of T5. No additional fractures are identified. The end plate osteophytes are seen on the right side. IMPRESSION: Mild compression fractures of the anterior superior end plates of T2 and T5. Left T2 transverse process fracture and right 1st rib fracture. CT LUMBAR SPINE: The exam was reconstructed from the CT of the abdomen and pelvis. No fractures are identified. End plate osteophytes are seen. There are mild facet degenerative changes. IMPRESSION: Degenerative changes. No evidence of fracture. Exam(s) a CT:CT chest/abd/pel w SYMPTOM/DIAGNOSIS: S/P TRAUMA, R/O CHEST/ABD INJURY CT CHEST, ABDOMEN AND PELVIS: There is respiratory motion limiting the exam. No pneumothorax is seen. There is no pleural or pericardial effusion or evidence of pulmonary contusion. There is a nondisplaced fracture of the proximal right 1st rib. Fracture of the left T2 transverse process is seen as well as fracture of the anterior superior end plate of T-2 and T-5. ABDOMEN AND PELVIS: There is motion at the level of the liver and spleen. No solid organ or visceral injury is identified. The prostate is enlarged. The urinary bladder is somewhat distended. There is no free air or free fluid. No spine or pelvic fractures are seen. IMPRESSION: Mild compression fractures of the anterior superior end plates of T2 and T5. Fracture of the left transverse process of T2 and right proximal first rib. Exam(s) a CT:CT head cerv spine & facial wo SYMPTOM/DIAGNOSIS: S/P HEAD INJURY, R/O ACUTE FRACTURE NONCONTRAST HEAD CT: No intracranial hemorrhage or skull fracture is seen. There is soft tissue swelling as well as air in the soft tissues of the right scalp. No foreign body is seen. The sinuses appear clear. The ventricles are normal in size. IMPRESSION: Large scalp laceration. No evidence of skull fracture, intracranial hemorrhage. CT CERVICAL SPINE: There is a nondisplaced fracture extending transversely through the dens, Type 2. There is also a fracture of the left occipital condyle which shows some comminution but no significant displacement. The alignment appears normal. 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 IMPRESSION: Nondisplaced Type II fracture of dens. Comminuted fracture of the left occipital condyle FACIAL CT: No facial fracture is seen. The exam is somewhat limited by patient motion. IMPRESSION: No evidence of facial fractures.
--- NOTE | 2018-05-06 16:38 | HPE_ITS ---
Date of service: 05/06/18 Time of Service: 16:36 Assessment and Plan (1) Dens fracture: Current visit: Yes Status: Acute Needs to wear Cervical Collar intact essentially at all times, with limited activity to include no bending, twisting, or lifting. Instructions on care, showering, etc. provided in detail by [facility] - noted and to be followed. Will require inpatient physical therapy prior to discharge for SNF. Follow-up imaging as scheduled by [facility]. (2) Scalp laceration: Current visit: Yes Status: Acute Needs front 5 edwige removed on 05/07 to reduce prominence of scar - order placed. Remainder of edwige to be removed at a later time. (3) Alcohol use: Current visit: Yes Status: Acute Patient with intoxication both by history and by subsequent alcohol level on the night of his fall. Does not appear to have an abuse history, merely intoxicated on the night of his fall. No prior history of withdrawl in the past. Doubt need for CIWA protocol, but will monitor for any signs of withdrawl while he is hospitalized. (4) Closed fracture of thoracic vertebral body: Current visit: Yes Status: Acute (5) Vertebral artery occlusion: Current visit: Yes Status: Acute Noted left Occipital Condyle fracture and left vertebral artery occlusion/dissection. (6) DVT prophylaxis: Current visit: Yes Status: Acute SCDs. Patient is ambulatory. History of Present Illness Chief Complaint: Fall, Cervical Fracture Narrative: Pleasant 68 year old man with a past medical history significant for likely excessive alcohol use without true ETOH abuse, presents as transfer from [facility] for Swing bed placement. Mr. Taylor was initially seen on 05/02 at [facility] Emergency Department after a fall at home. He has a history of 2 glass consumption of wine nightly. On the night of his presentation he had been out at the [employer] watching the football game. He admitted to become slightly inebriated, and upon return home suffered a fall down the stairs of his basement. He suffered a LOC, and upon regaining consciousness apparently crawled up the stairs and returned to bed. His girlfriend then called his daughter who came by and found him to be bleeding and with a large scalp laceration, and he was transported to the ED via EMS for further evaluation. Further evaluation revealed evidence of a type II Dens Fracture. The patient was transferred to [facility] for close monitoring. Following a 4 day hospitalization at [facility] Mr. Taylor is transferred back for a Swing Bed admission for further inpatient Physical Therapy prior to discharge to a SNF. Final diagnosis at time of discharge is a minimally displaced Type II Dens Fracture, Comminuted fracture of the left occipital condyle, Left sided 1st and 2nd rib fracture, T2 & T5 Vertebral Body Fractures, and a complex Scalp Laceration. There is also note of a left Vertebral Artery Occlusion/Dissection. Review of Systems Review of Systems All systems reviewed & are unremarkable except as noted in HPI and below and Unobtainable due to (Varying degrees of neck pain pending type of activity. ) [facility] Medical History No significant past medical history (Acute) Surgical History No significant past surgical history (Acute) Colonoscopy - IV Sedation (~2005) Family History Father Alcohol abuse Personal history of malignant neoplasm Social History Smoking/Tobacco Use Status: Never alcohol intake: current alcohol intake frequency: a few times a month substance use type: does not use Meds Home Medications Medication Instructions Recorded Confirmed Type aspirin [Aspirin Low-Strength] 81 mg PO DAILY tab-cap 04/21/13 05/01/18 History multivitamin [Daily Vitamin] 1 ea PO 04/21/13 History triamcinolone acetonide 1 film TOPICAL 2-4 times daily PRN 04/22/17 05/01/18 Rx #2 tube sildenafil [Viagra] 50 mg PO DAILY PRN #10 tab 06/09/17 05/01/18 History Allergies Allergy/AdvReac Type Severity Reaction Status Date / Time No Known Allergies Allergy Unverified 05/01/18 22:04 Exam Narrative Exam Narrative: General: Patient appears comfortable, AAOX3, NAD. Cervical Collar in place. Neck: Supple CV: Regular, nontachycardic, S1S2, No rubs, murmurs, or gallops. Pulmonary: Clear to auscultation bilaterally, no crackles, wheezing, or rhonchi Abdomen: + Bowel Sounds, soft, nontender, nondistended Vascular: No lower extremity edema Psych: Normal mood and affect. Results Imaging Additional studies: Exam(s) a CT:CT thoracic & lumbar spine rec SYMPTOM/DIAGNOSIS: RECON. S/P FALL DOWN STAIRS, R/O ACUTE FX CT THORACIC SPINE: The exam was reconstructed from the chest CT. There is a nondisplaced fracture of the proximal portion of the right 1st rib. A nondisplaced fracture of the left transverse process of L2 is noted. There is a minimal fracture involving the anterior superior end plate of T2. A small fracture is seen involving the right anterior aspect of T5. No additional fractures are identified. The end plate osteophytes are seen on the right side. IMPRESSION: Mild compression fractures of the anterior superior end plates of T2 and T5. Left T2 transverse process fracture and right 1st rib fracture. CT LUMBAR SPINE: The exam was reconstructed from the CT of the abdomen and pelvis. No fractures are identified. End plate osteophytes are seen. There are mild facet degenerative changes. IMPRESSION: Degenerative changes. No evidence of fracture. Exam(s) a CT:CT chest/abd/pel w SYMPTOM/DIAGNOSIS: S/P TRAUMA, R/O CHEST/ABD INJURY CT CHEST, ABDOMEN AND PELVIS: There is respiratory motion limiting the exam. No pneumothorax is seen. There is no pleural or pericardial effusion or evidence of pulmonary contusion. There is a nondisplaced fracture of the proximal right 1st rib. Fracture of the left T2 transverse process is seen as well as fracture of the anterior superior end plate of T-2 and T-5. ABDOMEN AND PELVIS: There is motion at the level of the liver and spleen. No solid organ or visceral injury is identified. The prostate is enlarged. The urinary bladder is somewhat distended. There is no free air or free fluid. No spine or pelvic fractures are seen. IMPRESSION: Mild compression fractures of the anterior superior end plates of T2 and T5. Fracture of the left transverse process of T2 and right proximal first rib. Exam(s) a CT:CT head cerv spine & facial wo SYMPTOM/DIAGNOSIS: S/P HEAD INJURY, R/O ACUTE FRACTURE NONCONTRAST HEAD CT: No intracranial hemorrhage or skull fracture is seen. There is soft tissue swelling as well as air in the soft tissues of the right scalp. No foreign body is seen. The sinuses appear clear. The ventricles are normal in size. IMPRESSION: Large scalp laceration. No evidence of skull fracture, intracranial hemorrhage. CT CERVICAL SPINE: There is a nondisplaced fracture extending transversely through the dens, Type 2. There is also a fracture of the left occipital condyle which shows some comminution but no significant displacement. The alignment appears normal. 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 IMPRESSION: Nondisplaced Type II fracture of dens. Comminuted fracture of the left occipital condyle FACIAL CT: No facial fracture is seen. The exam is somewhat limited by patient motion. IMPRESSION: No evidence of facial fractures.
--- NOTE | 2018-05-06 17:16 | CMSA_ITS ---
- If Service Date Differs Date of service: 05/06/18 Time of Service: 15:50 SB Psychosocial/Act.Assessment - Hospital Admission Admission Date: 05/06/18 Admission From:: [facility] Diagnosis:: S/P Multiple Trauma - Swing Bed Admission Swing Bed Admit Date:: 05/06/18 Swing Bed Level of Care: Level 1/SNF - Social Supports PREVIOUS FUNCTIONAL STATUS/SOCIAL/FAMILY SUPPORTS:: Hai resides in [place], [place]. He is and reports a son and daughter who reside locally, as well as grandchildren. 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 He is independent with all ADLs at baseline and reports wanting to return to work duties as soon as possible. - Prior to Admission Living Arrangements/Environment Prior to Admission:: Hai resides in his own home and was independent with all ADLs prior to this injury/event. 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 Voacation:: [employer] - [place]: No [place]'s Spouse: No - Benefits Financial: Medicare, Commerical ([facility]) - Gnosticist Active Yazdanism Member:: No Yazdanism Affliation: Confucianism Will Yazdanism Members or Police Commissioner Visit:: No - Advance Directives for Healthcare If no AD, do you want more information:: Yes - Interests Hobbies:: Active; workouts 3x/wk, spending time with family - Present Functional Status Physical Abilities:: Limited due to precautions Cognitive:: mTBI-requiring low stimulation Communication:: appropriate Behavior:: appropriate - Medical History PAST MEDICAL HISTORY/PAST SURGICAL HISTORY:: No significant PMH General Health:: In recovery-good baseline health Past Psychiatric Treatment:: N/A Other:: Hai reports some dream like sequences when falling asleep, reports no current nightmares or anxiety post trauma. Shares some dizziness and vertigo as well as random pain throughout his head and face - Admission Data Reason for Swing Bed Admission:: PT/OT post traumatic fall resulting in multiple fractures-requires Hard Collar with C-spine precautions Discharge Plan:: Home with VNA supports when ready per MD/PT/OT. Assessment: Short term rehab to accomodate post trauma precautions and recovery. Hai will require close monitoring of symptoms to ensure no further issues during recovery. Hvac Commercial Salesperson: Codie [place] Date Assessment was completed:: 05/06/18
--- NOTE | 2018-05-06 17:16 | CM.SWINGPC ---
- If Service Date Differs Date of service: 05/06/18 Time of Service: 17:16 Swingbed Plan of Care Plan of care: SWING BED PROGRAM ACTIVITIES/DISCHARGE PLAN OF CARE ACTIVITIES PLAN Date: 05/06/18 Identified Need: TBI Precautions, C-Spine Precautions, transfer education, supportive recovery post trauma Intervention/Plan: PT/OT support--DAVIDE Initials [facility] DISCHARGE PLAN Date: 05/06/18 Identified Need: Disposition Intervention/Plan: Ongoing evaluation for further needs, support for discharge safety and readiness. Initials: ZACARIAS
[2018-05-06 22:00] VITALS: BP 142/89; PULSE 87; RESP 20; TEMP 36.6; O2SAT 96
[2018-05-06] MEDS: Docusate Sodium 100 MG CAP PO (22:35)
[2018-05-06] MEDS: Melatonin 3 MG TAB 6 MG PO (22:35)
[2018-05-06] MEDS: Bacitracin 1 PACKET TP (22:35)
[2018-05-06] MEDS: oxyCODONE 5 MG TAB PO (22:36)
[2018-05-06] MEDS: Acetaminophen 500 MG TAB 1000 MG PO (22:36)
[2018-05-07] MEDS: Bacitracin 1 PACKET TP ×2 (08:01→20:36)
[2018-05-07] MEDS: Multivitamin TAB 1 TAB PO (08:01)
[2018-05-07] MEDS: Docusate Sodium 100 MG CAP PO ×2 (08:01→20:36)
[2018-05-07] MEDS: Senna TAB 1 TAB PO (08:01)
[2018-05-07] MEDS: Fluticasone NASAL SPRAY 16 GM BTL NS (08:02)
[2018-05-07 09:26] VITALS: BP 142/81; PULSE 80; RESP 16; TEMP 36.5; O2SAT 98
--- NOTE | 2018-05-07 12:49 | PT.INIE ---
Date of service: 05/07/18 Time of Service: 10:30 PT Notes Inpatient Physical Therapy Swingbed Evaluation Date: 05/07/18 Referring Doctor: Dr. Jacob Russell PT Orders: type 2 dens fracture Precautions: Spinal Precautions (NO BENDING, LIFTING OR TWISTING), Cervical collar at all times, log roll only for care Patient Profile/Admitting Diagnosis: Patient admitted from [facility] on swing bed status on 05/06/2018. He is suffered a fall at home 05/02/2018 with loss of consciousness. At time of admission he was identified to have multiple fractures including dens fracture left occipital condyle fracture, fractures of the left first and second rib, T2 and T5 vertebral body fractures, T2 left transverse process fracture, as well as left vertebral artery occlusion and complex scalp laceration. He was monitored acutely at [facility], and has returned here to [facility] for rehabilitation prior to anticipated return home. PMHX: Noncontributory Social History/Home Situation: Patient lives alone in a multilevel home. 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 He has support from his girlfriend, and from his adult daughter with whom he is close. No equipment needs at baseline. Equipment owned/DME: Rigid cervical collar SUBJECTIVE: Hai is resting in bed at initiation of session. He states that he is feeling well this morning. He has off and on pain in his neck accompanying headache, although states that he is noticing that he is feeling better today than he had been previously. He was able to get some sleep last night for the first time since his injury, and is happy that he is closer to home He denies any numbness or tingling, balance deficits, bowel or bladder changes. He does report that he feels weird when he watches TV for too long or walks into a room with bright light. OBJECTIVE: General Observation: Resting comfortably in bed, no lines. Mental Status: A and O x3 Pain: Well managed pain in neck and head ROM: RUE : WFL LUE: WFL RLE: WFL LLE: WFL STRENGTH: Restisted strength assessment was not performed on active range of motion due to spinal precautions RUE: Shoulder flexion 3/5. Biceps and triceps 3/5. Long Distance Operator is strong and equal. LUE: Shoulder flexion 3/5. Biceps and triceps 3/5. Long Distance Operator is strong and equal. RLE: Flexion 3/5. Quads 3/5. Hamstrings 3/5. Ankle dorsiflexion 3/5. LLE: Flexion 3/5. Quads 3/5. Hamstrings 3/5. Ankle dorsiflexion 3/5. SENSATION: Intact at hands and feet NEURO: Coordination is intact with rapid alternating movements of the upper and lower extremities. Fine motor is intact for the upper extremities with thumb to digit tapping. Visual tracking shows alteration in smooth pursuit to the right, although without exacerbation of headache symptoms or vertigo. BED MOBILITY/TRANSFERS: Supine to sit: Independent with head of bed at 35 degrees, and cervical collar Sit to supine: Independent with head of bed at 35 degrees, and cervical collar Sit to stand: Independent with cervical collar Stand to sit: Independent with cervical collar GAIT: Patient ambulates 300 feet with wheeled walker and supervision only. He demonstrates slow cautious gait, although no signs of ataxia or antalgia. BALANCE: Static sitting: normal Dynamic Sitting: good Static Standing: fair Dynamic Standing: fair Mobility Limitations Standardized Measure [facility] AM -PAC ?6 clicks? Basic Mobility Inpatient Short Form: raw score: 22 standardized score: 53.28 CMS score: 21% CMS modifier: CJ INFORMED CONSENT/EDUCATION: Pt instructed in purpose of PT Consult and plan of care. He was also instructed in bed excercises for completion between PT sessions, including heel slides, ankle pumps and hooklying march, each for 10 reps. We reviewed cervical precautions, and patient was encouraged to attempt mental rest, avoiding prolonged TV watching, reading, etc. ASSESSMENT: Patient is a 68 year old male referred to physical therapy services with diagnosis of multitrauma after a fall at home, with type II dens fracture being treated conservatively. Patient presents with clinical signs and symptoms consistent with as demonstrated by the following impairment level findings 1. Decreased upper extremity strength, with inability to lift based on spinal precautions 2. Decreased lower extremity strength 3. Range of motion restrictions based on spinal precautions 4. Decreased activity tolerance 5. balance impairments Impairments are contributing to the following functional limitations: 1. Increase activity tolerance 2. [place] on assistive device for ambulation 3. fall risk 4. Unable to manage stairs AMPA score 21% deficit Patient is assessed as a Moderate [id number] based on the following: o History: Multiple fractures in patient 5 days status post fall at home. Patient does not have any contributing medical factors, however has a type II dens fracture and is currently immobilized in a rigid cervical collar, with need to observe spinal precautions times 6-8 weeks. o Examination: Functional limitations as noted above o Presentation: Evolving o Decision Making: Moderate GOALS Goals x1 week 1. Supine-sit: independent 2. Sit-Supine: independent 3. Sit-Stand: independent 4. Stand-sit: independent 5. Bed-chair: independent with LRD 6. Chair-bed: independent with LRD 7. Gait: independent x 50' with LRD 8. Stairs: full flight with single rail, supervision only PLAN OF CARE/TREATMENT PLAN: 1-2x/day, 7 days/ week x 1 week Plan of care has been reviewed with the [employer]PER[employer] providing the service under Physical therapy direction. Initiate physical therapy intervention for strengthening, bed mobility, transfers, gait, stairs, balance training, use of assistive device. DISCHARGE RECOMMENDATIONS: Home with LRD (to be determined over the next few days) TREATMENT CODE/TIME: 35 minutes (12408) G Codes in the area mobility of walking and moving around: current status [id number] CJ projected status GP [id number] CI. Discharge status (if discharging) GP [id number].
--- NOTE | 2018-05-07 13:08 | IN_ITS ---
Date of service: 05/07/18 Time of Service: 10:30 PT Notes Inpatient Physical Therapy Swingbed Evaluation Date: 05/07/18 Referring Doctor: Dr. Jacob Russell PT Orders: type 2 dens fracture Precautions: Spinal Precautions (NO BENDING, LIFTING OR TWISTING), Cervical collar at all times, log roll only for care Patient Profile/Admitting Diagnosis: Patient admitted from [facility] on swing bed status on 05/06/2018. He is suffered a fall at home 05/02/2018 with loss of consciousness. At time of admission he was identified to have multiple fractures including dens fracture left occipital condyle fracture, fractures of the left first and second rib, T2 and T5 vertebral body fractures, T2 left transverse process fracture, as well as left vertebral artery occlusion and complex scalp laceration. He was monitored acutely at [facility], and has returned here to [facility] for rehabilitation prior to anticipated return home. PMHX: Noncontributory Social History/Home Situation: Patient lives alone in a multilevel home. 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 He has support from his girlfriend, and from his adult daughter with whom he is close. No equipment needs at baseline. Equipment owned/DME: Rigid cervical collar SUBJECTIVE: Hai is resting in bed at initiation of session. He states that he is feeling well this morning. He has off and on pain in his neck accompanying headache, although states that he is noticing that he is feeling better today than he had been previously. He was able to get some sleep last night for the first time since his injury, and is happy that he is closer to home He denies any numbness or tingling, balance deficits, bowel or bladder changes. He does report that he feels weird when he watches TV for too long or walks into a room with bright light. OBJECTIVE: General Observation: Resting comfortably in bed, no lines. Mental Status: A and O x3 Pain: Well managed pain in neck and head ROM: RUE : WFL LUE: WFL RLE: WFL LLE: WFL STRENGTH: Restisted strength assessment was not performed on active range of motion due to spinal precautions RUE: Shoulder flexion 3/5. Biceps and triceps 3/5. Driller'S Assistant is strong and equal. LUE: Shoulder flexion 3/5. Biceps and triceps 3/5. Driller'S Assistant is strong and equal. RLE: Flexion 3/5. Quads 3/5. Hamstrings 3/5. Ankle dorsiflexion 3/5. LLE: Flexion 3/5. Quads 3/5. Hamstrings 3/5. Ankle dorsiflexion 3/5. SENSATION: Intact at hands and feet NEURO: Coordination is intact with rapid alternating movements of the upper and lower extremities. Fine motor is intact for the upper extremities with thumb to digit tapping. Visual tracking shows alteration in smooth pursuit to the right, although without exacerbation of headache symptoms or vertigo. BED MOBILITY/TRANSFERS: Supine to sit: Independent with head of bed at 35 degrees, and cervical collar Sit to supine: Independent with head of bed at 35 degrees, and cervical collar Sit to stand: Independent with cervical collar Stand to sit: Independent with cervical collar GAIT: Patient ambulates 300 feet with wheeled walker and supervision only. He demonstrates slow cautious gait, although no signs of ataxia or antalgia. BALANCE: Static sitting: normal Dynamic Sitting: good Static Standing: fair Dynamic Standing: fair Mobility Limitations Standardized Measure [facility] AM -PAC ?6 clicks? Basic Mobility Inpatient Short Form: raw score: 22 standardized score: 53.28 CMS score: 21% CMS modifier: CJ INFORMED CONSENT/EDUCATION: Pt instructed in purpose of PT Consult and plan of care. He was also instructed in bed excercises for completion between PT sessions, including heel slides, ankle pumps and hooklying march, each for 10 reps. We reviewed cervical precautions, and patient was encouraged to attempt mental rest, avoiding prolonged TV watching, reading, etc. ASSESSMENT: Patient is a 68 year old male referred to physical therapy services with diagnosis of multitrauma after a fall at home, with type II dens fracture being treated conservatively. Patient presents with clinical signs and symptoms consistent with as demonstrated by the following impairment level findings 1. Decreased upper extremity strength, with inability to lift based on spinal precautions 2. Decreased lower extremity strength 3. Range of motion restrictions based on spinal precautions 4. Decreased activity tolerance 5. balance impairments Impairments are contributing to the following functional limitations: 1. Increase activity tolerance 2. [place] on assistive device for ambulation 3. fall risk 4. Unable to manage stairs AMPA score 21% deficit Patient is assessed as a Moderate [id number] based on the following: o History: Multiple fractures in patient 5 days status post fall at home. Patient does not have any contributing medical factors, however has a type II dens fracture and is currently immobilized in a rigid cervical collar, with need to observe spinal precautions times 6-8 weeks. o Examination: Functional limitations as noted above o Presentation: Evolving o Decision Making: Moderate GOALS Goals x1 week 1. Supine-sit: independent 2. Sit-Supine: independent 3. Sit-Stand: independent 4. Stand-sit: independent 5. Bed-chair: independent with LRD 6. Chair-bed: independent with LRD 7. Gait: independent x 50' with LRD 8. Stairs: full flight with single rail, supervision only PLAN OF CARE/TREATMENT PLAN: 1-2x/day, 7 days/ week x 1 week Plan of care has been reviewed with the LIDAR TECHNICIAN providing the service under Physical therapy direction. Initiate physical therapy intervention for strengthening, bed mobility, transfers, gait, stairs, balance training, use of assistive device. DISCHARGE RECOMMENDATIONS: Home with LRD (to be determined over the next few days) TREATMENT CODE/TIME: 35 minutes (58623) G Codes in the area mobility of walking and moving around: current status [id number] CJ projected status GP [id number]. Discharge status (if discharging) GP [id number].
--- NOTE | 2018-05-07 15:22 | NUR.NOTE ---
Nursing Note: First three anterior edwige removed per Dr. Bay's order. Steri-strips applied.
[2018-05-07] MEDS: Melatonin 3 MG TAB 6 MG PO (20:36)
[2018-05-07] MEDS: Acetaminophen 500 MG TAB 1000 MG PO (20:39)
[2018-05-07] MEDS: oxyCODONE 5 MG TAB PO (20:40)
[2018-05-08 07:50] VITALS: BP 134/72; PULSE 74; RESP 18; TEMP 36.9; O2SAT 96
[2018-05-08] MEDS: Bacitracin 1 PACKET TP ×2 (08:13→21:18)
[2018-05-08] MEDS: Docusate Sodium 100 MG CAP PO ×2 (08:13→21:18)
[2018-05-08] MEDS: Multivitamin TAB 1 TAB PO (08:13)
[2018-05-08] MEDS: Senna TAB 1 TAB PO (08:13)
[2018-05-08] MEDS: Fluticasone NASAL SPRAY 16 GM BTL NS (08:15)
[2018-05-08] MEDS: Acetaminophen 500 MG TAB 1000 MG PO ×2 (10:30→21:18)
--- NOTE | 2018-05-08 11:27 | PT.INTREAT ---
Date of service: 05/08/18 Time of Service: 11:27 PT Notes Inpatient Physical Therapy Treatment Note [facility] Date: 05/08/18 PRECAUTIONS:Fall risk SUBJECTIVE: Hai complains of intermittent facial discomfort,L greater than right, especially with mandibular opening. No complaints of extremity weakness, numbness, or parathesias. OBJECTIVE: PAIN: Facial discomfort and pain with swallowing BED MOBILITY/TRANSFERS Rolling L/R: I Supine-sit: I Sit-supine: I Sit-stand: I Stand-sit: I Bed-Chair: I Chair-bed: I GAIT Assistive Device: initially wheeled walker and is gaining more confidence none needed Weight bearing: As tolerated Assist: Contact guarding Distance: 300 feet Deviation: VITALS: THEREX: Active assistive range of motion of his extremities is within functional limits and nonpainful with movement. His tight hamstrings bilaterally straight leg raises at 45 degrees. Gastrocsoleus length +20 degrees. His session today consisted gait training with a walker and transitioning to independent ambulation. Also heel cord and hamstring stretching, open close chain strengthening exercises nebs on the quadriceps, and heel raises. I also performed Fawn strain, strain techniques to the pterygoids/masseters, and this increases mandibular opening from 10mm to 25 mm, with less pain. STAIRS: Neuro: Reflexes symmetrical, negative Babinski bilaterally, sensation is intact light touch. Negative dural signs. ASSESSMENT: Tolerated session well today. Stable on his feet and his Real balance test was 54 out of 56. 45 and under indicates fall risk. He stable enough to start ambulating around the halls independently. He has considerable hypertonicity throughout the mandibular musculature resulting in difficulty opening his mouth along with facial pain. He responded well to trigger point release techniques to the mandibular musculature as noted above. PLAN: Encourage patient to ambulate frequently today. Also performed heel cord and hamstring stretching to tolerance. Wall squats not to exceed 30 degrees for 30-45 seconds, antigravity knee extension in the sitting and supine position, etc. TREATMENT CODE/TIME: 9711 0/9 7116 Total treatment time: 30 minutes
--- NOTE | 2018-05-08 16:27 | NUR.NOTE ---
Nursing Note: 1545: 2 additional edwige removed today 05/08/18 per order.
[2018-05-08] MEDS: oxyCODONE 5 MG TAB PO (21:18)
[2018-05-08] MEDS: Melatonin 3 MG TAB 6 MG PO (21:18)
[2018-05-08] MEDS: Bisacodyl 5 MG TABEC 10 MG PO (21:21)
[2018-05-08] MEDS: Milk of Magnesia 30 ML CUP PO (21:21)
[2018-05-09] MEDS: Polyethylene Glycol 3350 17 GM PACKET PO (06:11)
[2018-05-09] MEDS: Senna TAB 1 TAB PO (06:11)
[2018-05-09] MEDS: Bacitracin 1 PACKET TP ×2 (08:55→19:44)
[2018-05-09] MEDS: Multivitamin TAB 1 TAB PO (08:55)
[2018-05-09] MEDS: Docusate Sodium 100 MG CAP PO ×2 (08:55→19:44)
[2018-05-09] MEDS: Fluticasone NASAL SPRAY 16 GM BTL NS (08:55)
[2018-05-09 09:35] VITALS: O2SAT 97
[2018-05-09 09:59] VITALS: BP 126/66; PULSE 81; RESP 18; TEMP 36.8; O2SAT 95
--- NOTE | 2018-05-09 11:00 | CHAPLAIN ---
Hai was resting in bed when I visited. He was pleasant and easily engaged in conversation. He said he has family members coming in to visit him and showed me a drawing from his granddaughter. I explained my role and offered support.
--- NOTE | 2018-05-09 11:32 | PT.INTREAT ---
Date of service: 05/09/18 Time of Service: 11:32 PT Notes Inpatient Physical Therapy Treatment Note [facility] Date: 05/09/2018 PRECAUTIONS: Abnormal spinal stress SUBJECTIVE: Patient states he is feeling better today. He walked numerous times around the [place]arcia yesterday and is feeling stronger and more optimistic regarding his condition. He states his been compliant with his program OBJECTIVE: PAIN: His facial pain is diminished although still present especially with end range mandibular movements. He continues to complain of throat discomfort with swallowing. BED MOBILITY/TRANSFERS Rolling L/R: Attended some rolling today so he could sleep on his side but this is uncomfortable for cervical spine, so he will continue to lie primarily supine. Supine-sit: i Sit-supine: i Sit-stand: i Stand-sit: i Bed-Chair: i Chair-bed: i GAIT Assistive Device: None needed Weight bearing: As tolerated Assist: Independent Distance: Greater than 300 feet THEREX: This morning session consisted of gentle stretching to the hamstrings and ITB's using muscle energy techniques and avoiding minimal stress of the spinal region, soft tissue release techniques to the pterygoids and masseters bilaterally, and low resistive strengthening exercises to the quads and biceps in open chain manner. We also practiced some bed mobility activities particularly from the supine to the side-lying position with support of the cervical spine, etc. ASSESSMENT: Patient doing well. More functional and independent with his bed mobility and walking now. He is having less facial discomfort since performing soft tissue release techniques to his mandibular musculature along with greater mandibular opening of greater than 25 mm. PLAN: As noted above, him continue to walk frequently throughout the day is a follow-up appointment later this afternoon TREATMENT CODE/TIME: 9711 0 x 2 Treatment time: 30 minutes
--- NOTE | 2018-05-09 12:36 | OTIE_ITS ---
Occupational Therapy Notes Occupational Therapy Inpatient Swingbed Evaluation Date: 05/09/18 Referring Doctor:Candida Bay MD OT Orders: eval and treat Precautions: Spinal Precautions (NO BENDING, LIFTING OR TWISTING), Cervical collar at all times, log roll only for care PATIENT PROFILE/ADMITTING DIAGNOSIS: Pt is a 68 year old male who was admitted to [facility] from [facility] on swing bed status on 05/06/2018. He is suffered a fall at home 05/02/2018 with loss of consciousness falling down the stairs. He was identified to have multiple fractures including fracture to the left occipital condyle fracture, fractures of the left first and second rib, T2 and T5 vertebral body fractures, T2 left transverse process fracture, as well as left vertebral artery occlusion and complex scalp laceration. He was monitored acutely at [facility], and has returned here to [facility] for rehabilitation prior to anticipated return home. Past Medical History: None per EMR hx Social History/Home Situation: Pt reports that he lives in a private home alone and his daughter lives behind him. He reports that prior to admission he was (I) with his ADLs/IADLs. He states that he is very active and attends [employer] multiple times per week. He states that his home set up is that he has a tub/shower combination he reports that he stands in the shower at baseline. He reports that he really doesn't cook for himself except for maybe once a week and its a small meal. He uses a toilet at baseline for toileting routine. Equipment owned/DME: Rigid cervical collar. SUBJECTIVE: Pt was sitting on the side of bed when OT arrived. He reports that he is agreeable to OT session and would like to get home as soon as possible. He states that sometimes he gets a sharp pain in his neck but can make the pain go away by lying down in his bed. He states that he has been up walking the halls today (I) and needs help with figuring out his shower routine when he returns home. OBJECTIVE: General Observation: Answers questions appropriately, pleasant Mental Status: A&Ox3 Pain: Slight pain in neck which pt laid down in the bed and reports that pain subsided. Pt does not quantify on pain scale. ROM: RUE AROM WNL L UE AROM WNL STRENGTH:Resisted strength assessment was not performed on active range of motion due to spinal precautions RUE: Shoulder flexion 3+/5. Biceps and triceps 4/5. Paper And Prints Restorer is strong and equal. LUE: Shoulder flexion 3+/5. Biceps and triceps 4/5. Paper And Prints Restorer is strong and equal. FUNCTIONAL MOBILITY/ADLS: Transfers Supine-sit (I) Sit-supine (I) Sit-Stand (I) Stand-sit (I) BATHING Pt denies at todays session reporting he already performed bathing routine. Education provided to pt on tub/shower combination bathroom and OT recommends that pt get shower bench, removeable shower head, and grab bars to increase pts (I) and safety in bething routine. DRESSING Sitting on side of the bed, pt was wearing street clothes when OT arrived. Dressing UE (I) donning and doffing shirt with neck brace on. With vc to put head in first when putting on and out last when taking shirt off. Pt demonstrated (I) donning and doffing shirt with use of neck brace and precautions. Dressing LE (I) With donning and doffing (B) socks while lying in bed GROOMING Standing at sink (I) with brushing teeth. TOILETING Per pt report he states that he can (I) perform this on toilet. EATING (I) in sitting position with opening and closing containers and hand to mouth translation. BALANCE: Static sitting Normal Dynamic Sitting Normal Static Standing Normal SPECIAL TESTS: Daily Activity Limitations Standardized Measure [facility] AM -PAC ?6 clicks? Daily Activity Inpatient Short Form: Raw score: 22 Standardized score: 47.10 CMS score: 25.80% [facility] modifier: CJ INFORMED CONSENT/EDUCATION: Pt instructed in purpose of OT Consult and plan of care. ASSESSMENT: Patient is a 68 -year-old male referred to physical therapy services with diagnosis of swing bed status on 05/06/2018. He is suffered a fall at home 05/02/2018 with loss of consciousness falling down the stairs. He was identified to have multiple fractures including fracture to the left occipital condyle fracture, fractures of the left first and second rib, T2 and T5 vertebral body fractures, T2 left transverse process fracture, as well as left vertebral artery occlusion and complex scalp laceration. Patient presents with clinical signs and symptoms consistent with this dx, as demonstrated by the following impairment level findings and functional limitations: Spinal Precautions (NO BENDING, LIFTING OR TWISTING), Cervical collar at all times, log roll only for care, decreased (I) in showering routine, decreased (I) in community mobility. Pt was seen for OT consult only. He demonstrated increased (I) in ADL routines with adherence for precautions. Pt was receptive to education and information provided to pt on use of DME during bathing routines. OT recommends that pt have removable showerhead, shower bench, and grab bars in the bathroom to increase pts safety during bathing routine. OT will discharge pt from skilled OT services at this time. OT recommends that pt return home with home OT when medically cleared per MD. AMPAC score 22, CMS score 25.80% Patient is assessed as a Moderate 96115 complexity based on the following: History: See Above Examination: See Above Presentation: Evolving Decision Making: AMPAC score 22, CMS score 25.80% GOALS N/A PLAN OF CARE/TREATMENT PLAN: OT eval only DISCHARGE RECOMMENDATIONS Home with home OT for home evaluation when medically cleared per MD. Recommend that pt have shower bench, removable shower head, and grab bars in bathroom to increase safety during bathing routine. TREATMENT TIME/[place]UTES/[place] [address], [address], 26 minutes (08:25) G Codes in the area of self- : washing oneself, toileting, dressing, eating and drinking, current status [id number] projected status GP [id number]. Discharge status (if discharging) GP [id number] Based on AMPAC score 22, CMS score 25.80%. Thank you for this referral. Brooke Dean, OTR/L [facility]
--- NOTE | 2018-05-09 14:02 | PHARADMIT ---
Addendum entered by Tayler Joel 05/10/18 10:46: looking good per morning report working with PT and OT BP-168/74 other VS okay no med changes so far today Original Note: Admission Pharmacy Clinical Review swingbed for PT Code Status Full Code Current Weight 89.4 kg Renally Cleared and Narrow Therapeutic Index Meds Crcl ~66.00 mL/min current meds okay QTc Value / Action Taken QTc 470 from 05/01/18 BP Control, Fever BP 126/66 afebrile Electrolytes reviewed n/a DVT Prophylaxis none Opiate Usage / Scheduled Bowel Regimen Ordered prn/priscilla and prn Plt/SCr for Heparin / Enoxaparin n/a INR for Warfarin n/a H/H stable, WBC/Bands n/a Antibiotic appropriateness none Cultures and Sensitivities none Surgical ABX d/c within 24 hr n/a DM control / Insulin Dosing n/a Heart Failure (Check EF%) (JANE's, B-Block, Diuretics) none IV to PO Switch n/a Home Meds Reviewed yes Home Meds Not Ordered aspirin, sildenafil(PRN), triamcinolone cream (PRN) Comments per nursing he has not had a BM in awhile, some PRN BMs ordered continue to watch for other possible meds to help
--- NOTE | 2018-05-09 14:12 | PT.INTREAT ---
Date of service: 05/09/18 Time of Service: 12:50 PT Notes PT Notes Inpatient Physical Therapy Treatment Note [facility] Date: 05/09/2018 PRECAUTIONS: Abnormal spinal stress, No BLT SUBJECTIVE: Patient states he is doing well. He has continued to get up and walk almost hourly. He continues to feel stronger and more optimistic regarding his condition. He states his been compliant with his program. He still has not gotten much sleep. And still notes difficulty with swallowing. He reports he just wants to be able to get back to work. OBJECTIVE: PAIN: He notes less pain into his jaw. Notes occasional GARCIA's. BED MOBILITY/TRANSFERS Rolling L/R:I Supine-sit: I Sit-supine:I Sit-stand: I Stand-sit: I Bed-Chair: I Chair-bed: I GAIT Assistive Device: None needed Weight bearing: As tolerated Assist: Independent Distance: Greater than 600 feet THEREX:Completed UE/LE AROM per flow sheet. Incorporated static balance activities. Also incorporated and provided manual cues for proper TA isolation along with supine posturals. ASSESSMENT: Patient doing very well. Emphasized for him to continue walking frequently throughout the day keeping in mind his precautions. PLAN:Continue with current plan of care. TREATMENT CODE/TIME: 9711 0 x 2 Treatment time: 30 minutes SHASHA Pearce
[2018-05-09 17:22] VITALS: BP 166/67; PULSE 76; RESP 18; TEMP 37.1; O2SAT 95
[2018-05-09] MEDS: Acetaminophen 500 MG TAB 1000 MG PO (20:49)
[2018-05-09] MEDS: Melatonin 3 MG TAB 6 MG PO (20:49)
[2018-05-10 07:25] VITALS: BP 168/74; PULSE 72; RESP 18; TEMP 36.6; O2SAT 96
[2018-05-10] MEDS: Fluticasone NASAL SPRAY 16 GM BTL NS (08:22)
[2018-05-10] MEDS: Bacitracin 1 PACKET TP ×2 (08:22→20:07)
[2018-05-10] MEDS: Docusate Sodium 100 MG CAP PO ×2 (08:22→20:07)
[2018-05-10] MEDS: Multivitamin TAB 1 TAB PO (08:22)
[2018-05-10 09:20] VITALS: O2SAT 96
--- NOTE | 2018-05-10 10:28 | PT.INTREAT ---
Date of service: 05/10/18 Time of Service: 10:28 PT Notes Inpatient Physical Therapy Treatment Note [facility] Date: 05/10/18 PRECAUTIONS: No BLT, log roll only SUBJECTIVE: Hai states that he is feeling good, he reports that it feels good to walk around. OBJECTIVE: PAIN: No c/o pain BED MOBILITY/TRANSFERS Rolling L/R: I with log rolling Supine-sit: I Sit-supine: I Sit-stand: I Stand-sit: I GAIT Assistive Device: No AD Weight bearing: Full Assist: I Distance: Approx 600' THEREX: Patient completed a LE strengthening and core stabilization program, as per flow sheet. STAIRS: Ascend/descend therapeutic stairs without rails and utilizing step-over pattern, independently, x5 minutes. ASSESSMENT: Patient tolerated session well without complaint. He demonstrates independence with transfers, bed mobility, gait, and stairs, at this time. PLAN: Continue with PT's POC TREATMENT CODE/TIME: 25 minutes; (62009 x1, 73793 x1)
--- NOTE | 2018-05-10 16:09 | PT.INTREAT ---
Date of service: 05/10/18 Time of Service: 16:09 PT Notes [facility] Date: 05/10/18 PRECAUTIONS: No BLT, Log Roll Only SUBJECTIVE: Hai reports that he has been walking in the halls independently, as well as performing bridging, hook-lying marching, and wall squats, independently. OBJECTIVE: PAIN: Patient c/o neck pain with sit<>supine transfer with log roll technique with HOB flat BED MOBILITY/TRANSFERS Supine-sit: Mod A with HOB flat due to pain; I with HOB at 30+ degrees Sit-Supine: Mod A with HOB flat due to pain; I with HOB at 30+ degrees Sit-stand: I Stand-sit: I GAIT Assistive Device: No AD Weight bearing: Full Assist: I Distance: 25' x2 THEREX: Patient completed bridging, hook-lying marching, and wall squat exercises, as per flow sheet. He also completed 25 minutes of NuStep biking (legs only) with minimal supervision, at no charge. ASSESSMENT: Patient demonstrates inability to perform sit<>supine transfers independently with HOB flat, at this time. Patient is currently demonstrating independence with bed transfers with the HOB elevated to 30+ degrees, although requires Mod A when HOB is flat. PLAN: Continue with PT's POC DIRECT TREATMENT CODE/TIME: 15 minutes; (22647 x1)
--- NOTE | 2018-05-10 18:41 | PDOC.CMPRO ---
Care Management Progress Note Hai was pedaling on a stationary bike when CM spoke with him in the PT room. Hai had made gains towards independence and education around precautions in place. He stated having half of the edwige on his head removed. He continues to share concerns around when he will be permitted to drive; this information is deffered to C-technical maintenance specialist Hai will follow up with. Sharlene; PT reports Hai will benefit from FWW and Hospital Bed for transfers; RUSSELL began forms and letter to submit to [facility] and will coordinate with Hai LEAL and DME provider. Hai will return home with new orders for [facility] PT/OT-?RN. CM will continue to support discharge considerations.
--- NOTE | 2018-05-10 18:44 | CMPROGNOTE_ITS ---
Care Management Progress Note Hai was pedaling on a stationary bike when CM spoke with him in the PT room. Hai had made gains towards independence and education around precautions in place. He stated having half of the edwige on his head removed. He continues to share concerns around when he will be permitted to drive; this information is deffered to C-docket specialist Hai will follow up with. Sharlene; PT reports Hai will benefit from FWW and Hospital Bed for transfers; RUSSELL began forms and letter to submit to [facility] and will coordinate with Hai LEAL and DME provider. Hai will return home with new orders for [facility] PT/OT-?RN. CM will continue to support discharge considerations.
[2018-05-10 20:38] VITALS: BP 143/75; PULSE 72; RESP 17; TEMP 36.9; O2SAT 98
[2018-05-10] MEDS: Acetaminophen 500 MG TAB 1000 MG PO (21:01)
[2018-05-10] MEDS: Melatonin 3 MG TAB 6 MG PO (21:01)
[2018-05-11 07:30] VITALS: BP 128/67; PULSE 85; RESP 18; TEMP 36.8; O2SAT 97
[2018-05-11] MEDS: Fluticasone NASAL SPRAY 16 GM BTL NS ×2 (08:43→11:19)
[2018-05-11] MEDS: Multivitamin TAB 1 TAB PO (08:43)
[2018-05-11] MEDS: Bacitracin 1 PACKET TP (08:43)
[2018-05-11] MEDS: Docusate Sodium 100 MG CAP PO ×2 (08:43→19:43)
--- NOTE | 2018-05-11 10:42 | PT.INPN ---
Date of service: 05/11/18 Time of Service: 10:00 PT Notes Date: 05/11/18 Referring Doctor: Dr. Jacob Russell PT Orders: type 2 dens fracture Precautions: Spinal Precautions (NO BENDING, LIFTING OR TWISTING), Cervical collar at all times, log roll only for care Treatment Dates: 05/07/18 - 05/11/18 Patient Profile/Admitting Diagnosis: Patient admitted from [facility] on swing bed status on 05/06/2018. He is suffered a fall at home 05/02/2018 with loss of consciousness. At time of admission he was identified to have multiple fractures including dens fracture left occipital condyle fracture, fractures of the left first and second rib, T2 and T5 vertebral body fractures, T2 left transverse process fracture, as well as left vertebral artery occlusion and complex scalp laceration. He was monitored acutely at [facility], and has returned here to [facility] for rehabilitation prior to anticipated return home. He's been participating in skilled PT intervention 1-2x/day for the past 5 days, with good improvements in ambulatory skills, although continued limitations in bed mobility. PMHX: Noncontributory Social History/Home Situation: Patient lives alone in a multilevel home. 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 He has support from his girlfriend, and from his adult daughter with whom he is close. No equipment needs at baseline. Equipment owned/DME: Rigid cervical collar SUBJECTIVE: Hai states that he is feeling well. His pain is well managed. He continues to struggle to get in/out of bed. He's also complaining of difficulty clearing sputum from his throat, particularly when lying down. OBJECTIVE: Mental Status: A and O x3 Pain: Well managed pain in neck and head ROM: RUE : WFL LUE: WFL RLE: WFL LLE: WFL STRENGTH: Restisted strength assessment was not performed on active range of motion due to spinal precautions RUE: Shoulder flexion 3/5. Biceps and triceps 3/5. Wheel Worker is strong and equal. LUE: Shoulder flexion 3/5. Biceps and triceps 3/5. Wheel Worker is strong and equal. RLE: Flexion 3/5. Quads 3/5. Hamstrings 3/5. Ankle dorsiflexion 3/5. LLE: Flexion 3/5. Quads 3/5. Hamstrings 3/5. Ankle dorsiflexion 3/5. SENSATION: Intact at hands and feet NEURO: Coordination is intact with rapid alternating movements of the upper and lower extremities. Fine motor is intact for the upper extremities with thumb to digit tapping. Visual tracking shows alteration in smooth pursuit to the right, although without exacerbation of headache symptoms or vertigo. BED MOBILITY/TRANSFERS: Supine to sit: Independent with head of bed at 30 degrees, and cervical collar. Attempted supine->sit with HOB flat, with patient requiring UE support to head, and requiring mod A for completion. Sit to supine: Independent with head of bed at 30 degrees, and cervical collar. With HOB flat, he requires UE support to head and mod A for completion. Sit to stand: Independent with cervical collar Stand to sit: Independent with cervical collar Positioning: patient requires HOB elevation for all positioning in bed due to cervical pain. He transfers frequently in/out of bed throughout the day (HOB 30-40 degreees) to walk independently for pain management. GAIT: Patient ambulates 600 feet independently, without signs of ataxia or antalgia. He's able to manage therapeutic stairs (6x2, 4x3) ascending and descending x12 with bilat rails and supervision only. BALANCE: Static sitting: normal Dynamic Sitting: good Static Standing: normal Dynamic Standing: good. Treatment: Patient education: Reviewed cervical precautions, and instructed patient in reaching techniques via lunge and golfer's bean picker machine operator to waist height. He requires CS throughout, with single, minor LOB which he's able to self-correct. Patient was also instructed in independent set up for use of NuStep (LEs only), which he performed independently for 10 minutes, for non-billable time. ASSESSMENT: Patient is a 68 year old male referred to physical therapy services with diagnosis of multitrauma after a fall at home, with type II dens fracture being treated conservatively, multiple additional spinal and rib fractures, and vertebral artery dissection. He remains under cervical spine precautions with a rigid cervical collar for an additional 4-6 weeks. He has made significant gains in activity tolerance and functional mobility, although with continued need for assistance for bed mobility. Patient is currently unable to independently transfer from flat bed, and requires elevation of HOB to 30 degrees for independent transfer, which will be necessary for him, as he lives alone. He will require a semi-electric hospital bed, which will allow for elevation of head of bed for independent transfers and for appropriate positioning for pain management. He is unable to use a crank-style bed due to cervical spine precautions preventing him from bending or lifting. GOALS Goals x1 week 1. Supine-sit: independent (met with HOB elevated; not met with HOB flat) 2. Sit-Supine: independent(met with HOB elevated; not met with HOB flat) 3. Sit-Stand: independent (met) 4. Stand-sit: independent(met) 5. Bed-chair: independent with LRD(met, with HOB elevated) 6. Chair-bed: independent with LRD(met, with HOB elevated) 7. Gait: independent x 50' with LRD(met) 8. Stairs: full flight with single rail, supervision only(met) PLAN OF CARE/TREATMENT PLAN: Continue 1-2x/day, 7 days/ week x 1 week Plan of care has been reviewed with the EQUAL OPPORTUNITY OFFICER providing the service under Physical therapy direction. Initiate physical therapy intervention for strengthening, bed mobility, transfers, gait, stairs, balance training, use of assistive device. DISCHARGE RECOMMENDATIONS: Home with semi-electric hospital bed TREATMENT CODE/TIME: 20 minutes ([id number])
--- NOTE | 2018-05-11 10:55 | INPN_ITS ---
Date of service: 05/11/18 Time of Service: 10:00 PT Notes Date: 05/11/18 Referring Doctor: Dr. Jacob Russell PT Orders: type 2 dens fracture Precautions: Spinal Precautions (NO BENDING, LIFTING OR TWISTING), Cervical collar at all times, log roll only for care Treatment Dates: 05/07/18 - 05/11/18 Patient Profile/Admitting Diagnosis: Patient admitted from [facility] on swing bed status on 05/06/2018. He is suffered a fall at home 05/02/2018 with loss of consciousness. At time of admission he was identified to have multiple fractures including dens fracture left occipital condyle fracture, fractures of the left first and second rib, T2 and T5 vertebral body fractures, T2 left transverse process fracture, as well as left vertebral artery occlusion and complex scalp laceration. He was monitored acutely at [facility], and has returned here to [facility] for rehabilitation prior to anticipated return home. He's been participating in skilled PT intervention 1- 2x/day for the past 5 days, with good improvements in ambulatory skills, although continued limitations in bed mobility. PMHX: Noncontributory Social History/Home Situation: Patient lives alone in a multilevel home. 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 He has support from his girlfriend, and from his adult daughter with whom he is close. No equipment needs at baseline. Equipment owned/DME: Rigid cervical collar SUBJECTIVE: Hai states that he is feeling well. His pain is well managed. He continues to struggle to get in/out of bed. He's also complaining of difficulty clearing sputum from his throat, particularly when lying down. OBJECTIVE: Mental Status: A and O x3 Pain: Well managed pain in neck and head ROM: RUE : WFL LUE: WFL RLE: WFL LLE: WFL STRENGTH: Restisted strength assessment was not performed on active range of motion due to spinal precautions RUE: Shoulder flexion 3/5. Biceps and triceps 3/5. Sales Recruiting Coordinator is strong and equal. LUE: Shoulder flexion 3/5. Biceps and triceps 3/5. Sales Recruiting Coordinator is strong and equal. RLE: Flexion 3/5. Quads 3/5. Hamstrings 3/5. Ankle dorsiflexion 3/5. LLE: Flexion 3/5. Quads 3/5. Hamstrings 3/5. Ankle dorsiflexion 3/5. SENSATION: Intact at hands and feet NEURO: Coordination is intact with rapid alternating movements of the upper and lower extremities. Fine motor is intact for the upper extremities with thumb to digit tapping. Visual tracking shows alteration in smooth pursuit to the right, although without exacerbation of headache symptoms or vertigo. BED MOBILITY/TRANSFERS: Supine to sit: Independent with head of bed at 30 degrees, and cervical collar. Attempted supine->sit with HOB flat, with patient requiring UE support to head, and requiring mod A for completion. Sit to supine: Independent with head of bed at 30 degrees, and cervical collar. With HOB flat, he requires UE support to head and mod A for completion. Sit to stand: Independent with cervical collar Stand to sit: Independent with cervical collar Positioning: patient requires HOB elevation for all positioning in bed due to cervical pain. He transfers frequently in/out of bed throughout the day (HOB 30- 40 degreees) to walk independently for pain management. GAIT: Patient ambulates 600 feet independently, without signs of ataxia or a ntalgia. He's able to manage therapeutic stairs (6x2, 4x3) ascending and descending x12 with bilat rails and supervision only. BALANCE: Static sitting: normal Dynamic Sitting: good Static Standing: normal Dynamic Standing: good. Treatment: Patient education: Reviewed cervical precautions, and instructed patient in reaching techniques via lunge and golfer's brain picker to waist height. He requires CS throughout, with single, minor LOB which he's able to self-correct. Patient was also instructed in independent set up for use of NuStep (LEs only), which he performed independently for 10 minutes, for non-billable time. ASSESSMENT: Patient is a 68 year old male referred to physical therapy services with diagnosis of multitrauma after a fall at home, with type II dens fracture being treated conservatively, multiple additional spinal and rib fractures, and vertebral artery dissection. He remains under cervical spine precautions with a rigid cervical collar for an additional 4-6 weeks. He has made significant gains in activity tolerance and functional mobility, although with continued need for assistance for bed mobility. Patient is currently unable to independently transfer from flat bed, and requires elevation of HOB to 30 degrees for independent transfer, which will be necessary for him, as he lives alone. He will require a semi-electric hospital bed, which will allow for elevation of head of bed for independent transfers and for appropriate positioning for pain management. He is unable to use a crank-style bed due to cervical spine precautions preventing him from bending or lifting. GOALS Goals x1 week 1. Supine-sit: independent (met with HOB elevated; not met with HOB flat) 2. Sit-Supine: independent(met with HOB elevated; not met with HOB flat) 3. Sit-Stand: independent (met) 4. Stand-sit: independent(met) 5. Bed-chair: independent with LRD(met, with HOB elevated) 6. Chair-bed: independent with LRD(met, with HOB elevated) 7. Gait: independent x 50' with LRD(met) 8. Stairs: full flight with single rail, supervision only(met) PLAN OF CARE/TREATMENT PLAN: Continue 1-2x/day, 7 days/ week x 1 week Plan of care has been reviewed with the GIS DATABASE ADMINISTRATOR providing the service under Physical therapy direction. Initiate physical therapy intervention for strengthening, bed mobility, transfers, gait, stairs, balance training, use of assistive device. DISCHARGE RECOMMENDATIONS: Home with semi-electric hospital bed TREATMENT CODE/TIME: 20 minutes ([id number])
[2018-05-11] MEDS: guaiFENesin 600 MG TABCR PO (11:18)
[2018-05-11] MEDS: Acetaminophen 500 MG TAB 1000 MG PO (13:43)
--- NOTE | 2018-05-11 15:04 | NUR.NOTE ---
Nursing Note: 1345 remaining 16 edwige removed from Pt's head per MD verbal order. Head attempted to be dried from the bacitracin, steri-strips applied.
--- NOTE | 2018-05-11 16:32 | PT.INTREAT ---
Date of service: 05/11/18 Time of Service: 16:32 PT Notes 05/11/18 Therapeutic Activity (no charge): Patient completed walking without assistive device, independently, x600'. This was followed by NuStep biking on L5 x20 minutes using only lower extremities, with minimal supervision. Direct Treatment Time: 10 minutes
--- NOTE | 2018-05-11 17:13 | CMPROGNOTE_ITS ---
Care Management Progress Note CM completed coordination of Semi-Electric Hospital Bed with MD, PT, Hai and Anabela in [place] and [place], [place]. Plan for bed delivery tomorrow afternoon, from [facility]. Hai in agreement with discharge plan. Hai will return home tomorrow with new VNA supports PT/OT/RN.
[2018-05-11] MEDS: Melatonin 3 MG TAB 6 MG PO (21:35)
[2018-05-11] MEDS: oxyCODONE 5 MG TAB PO (21:35)
[2018-05-12 04:22] VITALS: BP 157/90; PULSE 77; RESP 18; TEMP 36.2; O2SAT 97
[2018-05-12 07:40] VITALS: BP 153/83; PULSE 71; RESP 18; TEMP 37; O2SAT 97
[2018-05-12] MEDS: Acetaminophen 500 MG TAB 1000 MG PO (08:02)
[2018-05-12] MEDS: Docusate Sodium 100 MG CAP PO (08:03)
[2018-05-12] MEDS: Multivitamin TAB 1 TAB PO (08:03)
[2018-05-12] MEDS: Fluticasone NASAL SPRAY 16 GM BTL NS (08:03)
[2018-05-12] MEDS: Bacitracin 1 PACKET TP (08:03)
--- NOTE | 2018-05-12 10:32 | PDOC.CMDIS ---
LACE Index Scoring Tool - Questions: Length of Stay (in days): 4 - 6 Acuity (Admit via E.D.?): Yes E.D. Visits: 1 - Answers: Total Score: 8 Risk of Readmission: Low Risk Care Management Discharge Reason for Hospitalization: Type II Dens Fracture Discharge Plan: Hai will return home tomorrow with new VNA supports PT/OT/RN as well as a new semi-electric hospital bed filled through his Medicare benefit through [facility] and being delivered in the afternoon from the [place] office. Hai will follow up with his PCP and plan of care as prescribed. Patient/Family Education Needs: Review discharge instructions, community based services and home health service reviewed. Discuss Ask Me Three. Services Needed at Discharge: DME Agency ([place]; Medical Bed ), Home Health Care Services
--- NOTE | 2018-05-12 12:00 | PT.INDS ---
Date of service: 05/12/18 Time of Service: 11:00 PT Notes Date: 05/12/18 Referring Doctor: Dr. Jacob Russell PT Orders: type 2 dens fracture Precautions: Spinal Precautions (NO BENDING, LIFTING OR TWISTING), Cervical collar at all times, log roll only for care Treatment Dates: 05/07/18 - 05/12/18 Patient Profile/Admitting Diagnosis: Patient admitted from [facility] on swing bed status on 05/06/2018. He suffered a fall at home 05/02/2018 with loss of consciousness. At time of admission he was identified to have multiple fractures including dens fracture, left occipital condyle fracture, fractures of the left first and second rib, T2 and T5 vertebral body fractures, T2 left transverse process fracture, as well as left vertebral artery dissection and complex scalp laceration. He was monitored acutely at [facility], and returned here to [facility] for rehabilitation prior to anticipated return home. He's participated in skilled PT intervention for 7 sessions over the past 6 days. PMHX: Noncontributory Social History/Home Situation: Patient lives alone in a multilevel home. 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 He has support from his girlfriend, and from his adult daughter with whom he is close. No equipment needs at baseline. Equipment owned/DME: Rigid cervical collar SUBJECTIVE: I met with Hai briefly to discuss his discharge plan. He states that his daughter will be bringing him home, and will be able to pull into his garage to allow for entering the home without having to manage the ice. OBJECTIVE: General Observation: Resting comfortably in bed, no lines. Cervical collar in place. Mental Status: A and O x3 Pain: Well managed pain in neck and head ROM: RUE : WFL LUE: WFL RLE: WFL LLE: WFL STRENGTH: Restisted strength assessment was not performed on active range of motion due to spinal precautions RUE: Shoulder flexion 3/5. Biceps and triceps 3/5. Table Games Dual Rate Supervisor is strong and equal. LUE: Shoulder flexion 3/5. Biceps and triceps 3/5. Table Games Dual Rate Supervisor is strong and equal. RLE: Flexion 3/5. Quads 3/5. Hamstrings 3/5. Ankle dorsiflexion 3/5. LLE: Flexion 3/5. Quads 3/5. Hamstrings 3/5. Ankle dorsiflexion 3/5. SENSATION: Intact at hands and feet NEURO: Coordination is intact with rapid alternating movements of the upper and lower extremities. Fine motor is intact for the upper extremities with thumb to digit tapping. Visual tracking shows alteration in smooth pursuit to the right, although without exacerbation of headache symptoms or vertigo. BED MOBILITY/TRANSFERS: Supine to sit: Independent with head of bed at 35 degrees, and cervical collar. Patient has been consistently unable to perform bed mobility from flat bed, requiring elevated HOB for both positioning and transfers. Sit to supine: Independent with head of bed at 35 degrees, and cervical collar Sit to stand: Independent with cervical collar Stand to sit: Independent with cervical collar GAIT: Patient consistently ambulating the halls independently for 15-20 minutes at a time without assistive device. He managed therapeutic stairs (6x2, 4x3) x 12. He also consistently performed Nustep biking indpendently up to 20' during his stay here. BALANCE: Static sitting: normal Dynamic Sitting: normal Static Standing: good Dynamic Standing: good TReatment: Patient was seen for 10 minutes of non-billable time for review of plan for transitioning home. He has good understanding of his precautions and a safe plan for return home on this icy day. ASSESSMENT: Patient is a 68 year old male referred to physical therapy services with diagnosis of multitrauma after a fall at home, with type II dens fracture being treated conservatively. Patient has made excellent gains in mobility and safety since admission, and has now met all rehab goals and is safe for return to independent living. GOALS Goals x1 week 1. Supine-sit: independent (MET) 2. Sit-Supine: independent(MET) 3. Sit-Stand: independent(MET) 4. Stand-sit: independent(MET) 5. Bed-chair: independent with LRD(MET) 6. Chair-bed: independent with LRD(MET) 7. Gait: independent x 50' with LRD(MET) 8. Stairs: full flight with single rail, supervision only(MET) PLAN OF CARE/TREATMENT PLAN: Discharge home DISCHARGE RECOMMENDATIONS: Home with hospital bed, as per recommendations in progress note dated 05/11/2018 TREATMENT CODE/TIME: 10 minutes (no charge)
--- NOTE | 2018-05-12 12:41 | W.PM.DS.N ---
Date of service: 05/12/18 Time of Service: 12:41 DS: Diagnosis Discharge Diagnosis (1) Dens fracture: Status: Acute (2) Scalp laceration: Status: Acute (3) Alcohol use: Status: Acute (4) Closed fracture of thoracic vertebral body: Status: Acute (5) Vertebral artery occlusion: Status: Acute Discharge Plan Disposition Patient Disposition: HOME Condition: Stable Discharge Details Reason For Visit: TYPE II DENS FRACTURE Admit Date/Time: 05/06/18 15:15 Admit Provider: Jacob Russell Attending Provider: Jacob Russell Primary Care Provider: Peggy Breaux Hospital Course Hospital Course: Mr Taylor is a 68 year old male with PMHx of alcohol use and a recent fall resulting in a large scalp laceration, Type 2 Dens fracture, comminuted fracture of the left occipital condyle, left-sided 1st and 2nd rib fractures, as well as T2 and T5 vertebral body fractures, and a left vertebral artery occlusion/dissection, admitted to [facility] swing bed 1 status on 05/06/18 for physical and occupational therapy prior to discharge home. He did work with PT/OT and is felt to be discharged home today with a hospital bed, home health nursing, PT/OT. He is asked to keep his follow up appointment with imaging as previously scheduled at [facility]. He is required to wear the hard cervical collar at all times until his follow up with spine surgery. His edwige have been removed, but the wound will need to be reassessed by home health nursing to ensure that it has not dehisced. He is hemodynamically stable and ready for discharge home. Home Meds and New Rx's Prescriptions: New acetaminophen [Mapap Extra Strength] 500 mg Tablet 1,000 mg PO Q6H PRN PRNQty: 0 RF: 0 bisacodyl 10 mg Suppository 10 mg [place] DAILY PRN PRNQty: 5 RF: 0 docusate sodium [Colace] 100 mg Capsule 100 mg PO BID Qty: 60 RF: 0 fluticasone 50 mcg/actuation [place],Suspension See Rx Instructions .ROUTE .COMPLEX Qty: 9.9 RF: 0 bacitracin zinc 500 unit/gram Packet 1 packet topical BID Qty: 30 RF: 0 sennosides [Senokot] 8.6 mg Tablet 1 tab PO BID PRN PRNQty: 60 RF: 0 polyethylene glycol 3350 17 gram Powder In Packet 17 g PO DAILY PRN PRN (Reason: Constipation) Qty: 10 RF: 0 oxycodone 5 mg Tablet 5 mg PO Q4H PRN PRNQty: 30 RF: 0 melatonin 3 mg Tablet Extended Release 3 mg PO HS Qty: 10 RF: 0 guaifenesin [Mucinex] 600 mg Tablet Extended Release 12hr 600 mg PO BID PRN PRNQty: 30 RF: 0 Zyrtec 10 mg capsule 10 mg PO DAILY Qty: 30 RF: 0 Continued multivitamin [Daily Vitamin] 1 EACH tablet 1 ea PO RF: 0 Discontinued aspirin [Aspirin Low-Strength] 81 MG tablet,chewable 81 mg PO DAILY RF: 0 triamcinolone acetonide 15 GM cream 1 film Topical 2-4 times daily PRN Qty: 2 RF: 1 sildenafil [Viagra] 100 MG tablet 50 mg PO PRN PRNQty: 10 RF: 3 Discharge Instructions Instructions: Cervical Fracture (DC) Additional Instructions: Return to the hospital with any fever, bleeding, chest pain, or shortness of breath. Follow up with [facility] as previously scheduled. Wear hard cervical collar at all times. No bending or twisting. No lifting of weights >5-10 [address]. No NSAIDS (ibuprofen/naproxen, etc.) No drinking alcohol while taking oxycodone/narcotics. Stand Alone Forms: Nursing Discharge Form Referrals: Peggy Breaux NP [Primary Care Provider] - 05/19/18 1:00 pm Activity:: No driving Equipment/Supplies:: hospital bed, cervical collar Diet:: As Tolerated Discharge Orders Discharge Orders: Discharge Order (Routine); Ordered 05/12/18 Ordered By: Candida Bay Exam Narrative Exam Narrative: General: A&OX3, NAD HEENT: in cervical collar, scalp lacerations with steri strips; edwige removed, healing well. EOMI, MMM Heart: RRR, no m/r/g Lungs: CTAB GI: abdomen soft, nontender, nondistended Extremities; no e/c/c BLE's; 5/5 strength throughout DS: Data Vitals/I&O Vitals and I&O: Vital Signs Temperature 37.0 C 05/12/18 07:40 Temperature Source Tympanic 05/12/18 07:40 Pulse 71 05/12/18 07:40 Pulse Rhythm Regular 05/12/18 09:13 Respiratory Rate 18 05/12/18 07:40 Respiratory Effort Non-Labored 05/12/18 09:13 Respiratory Depth Normal 05/12/18 09:13 Respiratory Pattern Normal 05/12/18 09:13 Blood Pressure 153/83 H 05/12/18 07:40 Pulse Oximetry 97 05/12/18 07:40 Oxygen Delivery Method Room Air 05/12/18 07:40 Oxygen Flow Rate 0 05/12/18 07:40 Pain Level 4 05/11/18 07:30 Intake & Output 05/11/18 05/12/18 05/12/18 23:59 11:59 23:59 Intake Total 360 / 540 240 / 240 Balance 360 / 540 240 / 240 Intake: Oral 360 / 540 240 / 240 Other: Urine Color Pale Yellow Urine Appearance Clear Clear Urine Odor None PFSH Medical History No significant past medical history (Acute) Surgical History No significant past surgical history (Acute) Colonoscopy - IV Sedation (~2005) Family History Father Alcohol abuse Personal history of malignant neoplasm Social History Smoking/Tobacco Use Status: Never alcohol intake: current alcohol intake frequency: a few times a month substance use type: does not use
--- NOTE | 2018-05-12 12:44 | DSE_ITS ---
Date of service: 05/12/18 Time of Service: 12:41 DS: Diagnosis Discharge Diagnosis (1) Dens fracture: Status: Acute (2) Scalp laceration: Status: Acute (3) Alcohol use: Status: Acute (4) Closed fracture of thoracic vertebral body: Status: Acute (5) Vertebral artery occlusion: Status: Acute Discharge Plan Disposition Patient Disposition: HOME Condition: Stable Discharge Details Reason For Visit: TYPE II DENS FRACTURE Admit Date/Time: 05/06/18 15:15 Admit Provider: Jacob Russell Attending Provider: Jacob Russell Primary Care Provider: Peggy Breaux Hospital Course Hospital Course: Mr Taylor is a 68 year old male with PMHx of alcohol use and a recent fall resulting in a large scalp laceration, Type 2 Dens fracture, comminuted fracture of the left occipital condyle, left-sided 1st and 2nd rib fractures, as well as T2 and T5 vertebral body fractures, and a left vertebral artery occlusion/dissection, admitted to [facility] swing bed 1 status on 05/06/18 for ph ysical and occupational therapy prior to discharge home. He did work with PT/OT and is felt to be discharged home today with a hospital bed, home health nursing, PT/OT. He is asked to keep his follow up appointment with imaging [place] [facility] He is required to wear the hard cervical collar at all times until his follow up with spine surgery. His edwige have been removed, but the wound will need to be reassessed by home health nursing to ensure that it has not dehisced. He is hemodynamically stable and ready for discharge home. Home Meds and New Rx's Prescriptions: New acetaminophen [Mapap Extra Strength] 500 mg Tablet 1,000 mg PO Q6H PRN PRNQty: 0 RF: 0 bisacodyl 10 mg Suppository 10 mg ID DAILY PRN PRNQty: 5 RF: 0 docusate sodium [Colace] 100 mg Capsule 100 mg PO BID Qty: 60 RF: 0 fluticasone 50 mcg/actuation [place],Suspension See Rx Instructions .ROUTE .COMPLEX Qty: 9.9 RF: 0 bacitracin zinc 500 unit/gram Packet 1 packet topical BID Qty: 30 RF: 0 sennosides [Senokot] 8.6 mg Tablet 1 tab PO BID PRN PRNQty: 60 RF: 0 polyethylene glycol 3350 17 gram Powder In Packet 17 g PO DAILY PRN PRN (Reason: Constipation) Qty: 10 RF: 0 oxycodone 5 mg Tablet 5 mg PO Q4H PRN PRNQty: 30 RF: 0 melatonin 3 mg Tablet Extended Release 3 mg PO HS Qty: 10 RF: 0 guaifenesin [Mucinex] 600 mg Tablet Extended Release 12hr 600 mg PO BID PRN PRNQty: 30 RF: 0 Zyrtec 10 mg capsule 10 mg PO DAILY Qty: 30 RF: 0 Continued multivitamin [Daily Vitamin] 1 EACH tablet 1 ea PO RF: 0 Discontinued aspirin [Aspirin Low-Strength] 81 MG tablet,chewable 81 mg PO DAILY RF: 0 triamcinolone acetonide 15 GM cream 1 film Topical 2-4 times daily PRN Qty: 2 RF: 1 sildenafil [Viagra] 100 MG tablet 50 mg PO PRN PRNQty: 10 RF: 3 Discharge Instructions Instructions: Cervical Fracture (DC) Additional Instructions: Return to the hospital with any fever, bleeding, chest pain, or shortness of breath. [place] [facility] [place]. Wear hard cervical collar at all times. No bending or twisting. No lifting of weights >5-10 lbs. [address]. No NSAIDS (ibuprofen/naproxen, etc.) No drinking alcohol while taking oxycodone/narcotics. Stand Alone Forms: Nursing Discharge Form Referrals: Peggy Breaux NP [Primary Care Provider] - 05/19/18 1:00 pm Activity:: No driving Equipment/Supplies:: hospital bed, cervical collar Diet:: As Tolerated Discharge Orders Discharge Orders: Discharge Order (Routine); Ordered 05/12/18 Ordered By: Candida Bay Exam Narrative Exam Narrative: General: A&OX3, NAD HEENT: in cervical collar, scalp lacerations with steri strips; edwige removed, healing well. EOMI, MMM Heart: RRR, no m/r/g Lungs: CTAB GI: abdomen soft, nontender, nondistended Extremities; no e/c/c BLE's; 5/5 strength throughout DS: Data Vitals/I&O Vitals and I&O: Vital Signs Temperature 37.0 C 05/12/18 07:40 Temperature Source Tympanic 05/12/18 07:40 Pulse 71 01/24/19 07:40 Pulse Rhythm Regular 05/12/18 09:13 Respiratory Rate 18 05/12/18 07:40 Respiratory Effort Non-Labored 05/12/18 09:13 Respiratory Depth Normal 05/12/18 09:13 Respiratory Pattern Normal 05/12/18 09:13 Blood Pressure 153/83 H 05/12/18 07:40 Pulse Oximetry 97 05/12/18 07:40 Oxygen Delivery Method Room Air 05/12/18 07:40 Oxygen Flow Rate 0 05/12/18 07:40 Pain Level 4 05/11/18 07:30 Intake & Output 05/11/18 05/12/18 05/12/18 23:59 11:59 23:59 Intake Total 360 / 540 240 / 240 Balance 360 / 540 240 / 240 Intake: Oral 360 / 540 240 / 240 Other: Urine Color Pale Yellow Urine Appearance Clear Clear Urine Odor None PFSH Medical History No significant past medical history (Acute) Surgical History No significant past surgical history (Acute) Colonoscopy - IV Sedation (~2005) Family History Father Alcohol abuse Personal history of malignant neoplasm Social History Smoking/Tobacco Use Status: Never alcohol intake: current alcohol intake frequency: a few times a month substance use type: does not use
--- NOTE | 2018-05-12 15:18 | CMDISCH_ITS ---
LACE Index Scoring Tool - Questions: Length of Stay (in days): 4 - 6 Acuity (Admit via E.D.?): Yes E.D. Visits: 1 - Answers: Total Score: 8 Risk of Readmission: Low Risk Care Management Discharge Reason for Hospitalization: Type II Dens Fracture Discharge Plan: Hai will return home tomorrow with new VNA supports PT/OT/RN as well as a new semi-electric hospital bed filled through his Medicare benefit through [facility] and being delivered in the afternoon from the [place] office. Hai will follow up with his PCP and plan of care as prescribed. Patient/Family Education Needs: Review discharge instructions, community based services and home health service reviewed. Discuss Ask Me Three. Services Needed at Discharge: DME Agency ([place]; Medical Bed ), Home Health Care Services
--- NOTE | 2018-05-13 11:17 | HHF2F_ITS ---
1. Encounter Date and Reason I certify that MAEVE HARRELL was seen by Candida Bay on 05/13/18 and that I had a [id number]-xium encounter with this patient that meets the physician face to face encounter requirements. 2. Clinical Findings Supporting Skilled Need and Homebound Status I certify that home health services are medically necessary, include either intermittent senior living and/or physical/speech therapy, and that this patient is homebound in that absences from the home require considerable and taxing effort and are infrequent or of short duration, or are attributable to the need to receive medical care. [X] (a) Attached documentation from encounter provides clinical findings supporting skilled need and homebound status (including what assistance patient requires to leave the home). The encounter with the patient was in whole, or in part, for the following medical condition, which is the primary reason for home health care: TYPE II DENS FRACTURE Mcc: wound assessment Physical Therapy: eval and treat Occupational Therapy: eval and treat Homebound: unable to leave home without assistance 3. Certification and Authentication I certify that I composed the above information based on my clinical judgement relating to this patient's medical condition and, if applicable, clinical findings communicated to me by the NPP or inpatient physician who performed the Home Health Referral. All further orders will be obtained through Dr Topete (Community Based Physician - PCP)
== END 2018-05-12 15:09 | disposition home or self-care (01) | DRG 559 ==
PROVIDERS: Admitting Provider Internal Medicine; PCP Nurse Practitioner Family; Visit Provider Internal Medicine
DX: S12.110D Anterior displaced Type II dens fracture, subsequent encounter for fracture with routine healing (principal); I77.74 Dissection of vertebral artery; S01.01XD Laceration without foreign body of scalp, subsequent encounter; S02.113D Unspecified occipital condyle fracture, subsequent encounter for fracture with routine healing; S22.42XD Multiple fractures of ribs, left side, subsequent encounter for fracture with routine healing; S22.020D Wedge compression fracture of second thoracic vertebra, subsequent encounter for fracture with routine healing; S22.050D Wedge compression fracture of T5-T6 vertebra, subsequent encounter for fracture with routine healing; W10.8XXD Fall (on) (from) other stairs and steps, subsequent encounter; I65.02 Occlusion and stenosis of left vertebral artery; Z72.89 Other problems related to lifestyle
CPT/HCPCS: 97110; 97162; 97166; 97530; 97535; 99306; 99316

== ENCOUNTER 2018-07-26 11:17 | Outpatient (CLI) | payer MEDICARE, BC, SELFPAY ==
[2018-07-26 13:58] LABS: CREATININE 0.82 mg/dL (0.70-1.30)
--- NOTE | 2018-07-26 14:30 | DI.CT_ITS ---
SYMPTOMS/DIAGNOSIS: LEFT VERTEBRAL ARTERY DISSECTION, I77.74 CT ANGIOGRAPHY OF THE HEAD AND NECK: Comparison CT head and cervical spine from 05/01/18. Post contrast CT scan of the head and neck was performed. CT SCAN OF THE NECK: The visualized portion of the thoracic aorta is intact and unremarkable, as are the subclavian arteries. The common carotid arteries are unremarkable without evidence of dissection, occlusion or significant stenosis. The external carotid arteries are unremarkable without evidence of occlusion or significant stenosis. The extracranial portion of the internal carotid arteries are unremarkable without evidence of dissection, occlusion or significant stenosis. The right vertebral artery is unremarkable. No evidence of dissection, aneurysm, occlusion or significant stenosis is present. The proximal left vertebral artery is visualized. At the level of C2, there is a decrease in diameter of the vertebral artery by approximately half. At the C1 level, the left vertebral artery is no longer visualized. It is reconstituted distally at about the level of the PICA and at that point it is of equal size when compared to the right vertebral artery. There has been no change in the alignment of the type II dens fracture. No bridging callus formation is seen. There has been no change in alignment of the fracture. The fracture through the left occipital condyle is not visualized, suggesting interval healing. No new fractures or dislocations are appreciated. The lungs apices appear clear. The thyroid gland is grossly unremarkable. Degenerative changes are seen in the spine. IMPRESSION: 1. Nonvisualization of the left vertebral artery beginning at the level of C1 to the region of the PICA. Differential considerations include dissection or thrombus. 2. Stable type II dens fracture. CTA OF THE BRAIN: The intracranial internal carotid arteries are unremarkable. No evidence of dissection, occlusion or aneurysm. No significant stenosis is seen. The anterior cerebral arteries are unremarkable without evidence of aneurysm or occlusion. No significant stenosis is present. The middle cerebral arteries are unremarkable without evidence of aneurysm or occlusion. No significant stenosis is present. The posterior cerebral arteries are unremarkable. No evidence of significant stenosis, occlusion or aneurysm is seen. The basilar artery is unremarkable. IMPRESSION: No arterial abnormality.
[2018-07-26] MEDS: Omnipaque 350 MG/ML 100 ML BTL 85 ML IJ (14:33)
== END 2018-07-26 11:37 ==
PROVIDERS: PCP Nurse Practitioner Family; Visit Provider Neurological Surgery
DX: I77.74 Dissection of vertebral artery (principal); S12.9XXD Fracture of neck, unspecified, subsequent encounter; Z13.89 Encounter for screening for other disorder
CPT/HCPCS: 36415; 70496; 70498; 82565; J3490

== ENCOUNTER 2018-11-03 00:37 | Outpatient (CLI) | payer MEDICARE, BC, SELFPAY ==
--- NOTE | 2018-11-03 08:30 | DI.RAD_ITS ---
SYMPTOM/DIAGNOSIS: C2 FX C-SPINE: There is some straightening of the normal lumbar lordosis. The vertebral bodies are intact. Disc narrowing is identified at C4-5, C5-6, and C6-C7. There is moderate hypertrophic changes involving vertebral bodies. There is apparent severe DJD involving the facet joints. The neural canal appears widely patent. Oblique images revealed no significant compromise of the neural foramen. The odontoid is intact and is closely applied to the anterior arch of C-1. SUMMARY: Multi-level disc space narrowing and degenerative bony changes are demonstrated as described above.
== END 2018-11-03 00:57 ==
PROVIDERS: PCP Nurse Practitioner Family; Visit Provider Neurological Surgery
DX: M50.321 Other cervical disc degeneration at C4-C5 level (principal); M50.322 Other cervical disc degeneration at C5-C6 level; M50.323 Other cervical disc degeneration at C6-C7 level; M47.812 Spondylosis without myelopathy or radiculopathy, cervical region; Z87.81 Personal history of (healed) traumatic fracture
CPT/HCPCS: 72050

== ENCOUNTER 2018-12-26 00:28 | Outpatient (CLI) | payer MEDICARE, BC, SELFPAY ==
--- NOTE | 2018-12-26 15:10 | DI.CT_ITS ---
SYMPTOM/DIAGNOSIS: ODONTOID FRACTURE S12.110A CERVICAL SPINE CT: 12/26 CT examination of the cervical spine was performed utilizing multi slice acquisition and multi planar reconstruction. The previous noted fracture of the base of the odontoid noted on CT of 05/01/18 shows no change in alignment in comparison with the previous examination. There appears to be minimal callus at the fracture site but the fracture plane persists. No new fracture identified. Note is again made of multi level degenerative changes of the cervical spine. No gross central canal spinal stenosis seen. CONCLUSION: Stable but unhealed fracture of the base of the odontoid as described above.
== END 2018-12-26 00:48 ==
PROVIDERS: PCP Nurse Practitioner Family; Visit Provider Neurological Surgery
DX: S12.110G Anterior displaced Type II dens fracture, subsequent encounter for fracture with delayed healing (principal); M47.812 Spondylosis without myelopathy or radiculopathy, cervical region
CPT/HCPCS: 72125

== ENCOUNTER 2020-07-02 02:51 | Outpatient (CLI) | payer MEDICARE, BC, SELFPAY ==
[2020-07-02 10:26] LABS: HCT 43.8 % (40.0-50.0); HGB 15.4 g/dL (13.5-17.5); MCH 32.4 pg (27.0-33.0); MCHC 35.2 % (32.0-36.0); MCV 92.2 fL (80-95); MPV 9.4 fL (8.0-11.0); Platelet Count 179 10^3/uL (130-400); RBC 4.75 10^6/uL (4.36-5.78); RDW 11.6 % (11.8-14.1); RDW-SD 38.9 fL; WBC 4.64 10^3/uL (4.4-10.8)
[2020-07-02 10:42] LABS: Hemoglobin A1C 5.6 % (<5.7)
[2020-07-02 11:21] LABS: ALT 26 U/L (16-63); AST 20 U/L (15-37); Albumin 3.8 g/dL (3.4-5.0); Alkaline Phosphatase 67 U/L (46-116); Anion Gap 7.6 mmol/L (3-11); BUN 18 mg/dL (7-18); Bilirubin, Total 0.5 mg/dL (0.2-1.0); CO2 29.4 mmol/L (21.0-32.0); CREATININE 1.1 mg/dL (0.70-1.30); Calculated LDL 96 mg/dL (<100); Chloride 104 mmol/L (98-107); Cholesterol 185 mg/dL (<200); Glucose 91 mg/dL (74-106); HDL Cholesterol 68 mg/dL (40-60); Potassium 4.7 mmol/L (3.5-5.1); Sodium 141 mmol/L (136-145); Total Protein 6.9 g/dL (6.4-8.2); Triglyceride 106 mg/dL (<150)
[2020-07-02 19:56] LABS: PSA, Screening 4.1 ng/mL (0.0-6.5)
[2020-07-03 10:38] LABS: Hepatitis C Ab w Rflx HCV PCR Negative (Negative)
== END 2020-07-02 02:52 | disposition home or self-care (01) ==
LOC: LBO 02:51
PROVIDERS: PCP Nurse Practitioner Family; Visit Provider Nurse Practitioner Family
DX: E78.5 Hyperlipidemia, unspecified (principal); R73.01 Impaired fasting glucose; Z11.59 Encounter for screening for other viral diseases; N40.0 Benign prostatic hyperplasia without lower urinary tract symptoms; Z12.5 Encounter for screening for malignant neoplasm of prostate
CPT/HCPCS: 36415; 80053; 80061; 84153; 85027; 86803; 83036

== ENCOUNTER 2021-04-06 17:01 | Observation (INO) | payer MEDICARE, BC, SELFPAY ==
[2021-04-06] VITALS (24 sets, daily range): BP systolic 129–162; BP diastolic 57–73; PULSE 68–86; RESP 9–20; TEMP 36.4; O2SAT 95–100
--- NOTE | 2021-04-06 17:15 | DI.RAD_ITS ---
Exam(s) XR CHEST 2V PA LATERAL EXAM: XR CHEST 2V PA LATERAL CLINICAL HISTORY: memory changes TECHNIQUE: 2D digital imaging was performed. COMPARISON: CT CT CHEST/ABD/PEL W from 05/01/2018 FINDINGS: MEDIASTINUM: Normal. HEART: Normal. PULMONARY VASCULATURE: Normal. LUNGS: Clear. PLEURAL SPACE: No pleural effusion or pneumothorax. BONE:Unremarkable for age. IMPRESSION: No acute abnormality. DATA REPOSITORY: RADIATION DOSE DELIVERED:
--- NOTE | 2021-04-06 17:15 | DI.CT_ITS ---
Exam(s) CT BRAIN NECK CTA EXAM: CT BRAIN NECK CTA CLINICAL HISTORY: short term memory loss x4 hours. TECHNIQUE: Imaging Protocol: Axial CT angiography was performed with multi-slice acquisition and mu lti-planar and/or 3D reconstructions. CONTRAST MATERIAL: Intravenous: Omnipaque 350 Contrast volume:100 cc COMPARISON: CT CT CHEST/ABD/PEL W from 05/01/[address] BRAIN NECK CTA from 07/26/2018 CR,XR XR CHEST 2V PA LATERAL from 04/06/2021 FINDINGS: CT Head W/O and W contrast: Ventricles and Extra axial spaces: Normal in size and morphology for the patient's age. Hemorrhage: None. Cerebral parenchyma: Normal. Midline shift: None. Brainstem/Cerebellum: Normal. Calvarium: Normal. Visualized Paranasal sinuses/Mastoids: Clear. Soft Tissues: Unremarkable. Enhancement: Normal. CTA Brain W: Internal Carotid Arteries: Atherosclerotic calcification bilaterally. Middle Cerebral Arteries: Right: No aneurysm, occlusion or significant stenosis. Left: No aneurysm, occlusion or significant stenosis. Anterior Cerebral Arteries: Right: No aneurysm, occlusion or significant stenosis. Left: No aneurysm, occlusion or significant stenosis. Posterior cerebral Arteries: Right: No aneurysm, occlusion or significant stenosis. Left: No aneurysm, occlusion or significant stenosis. Vertebral Arteries: Right: No aneurysm, occlusion or significant stenosis. Left: No aneurysm, occlusion or significant stenosis. Basilar Artery: No aneurysm, occlusion or significant stenosis. CTA Neck W: Common Carotid: Right: No aneurysm, occlusion or significant stenosis. Left: No aneurysm, occlusion or significant stenosis. External Carotid: Right: No aneurysm, occlusion or significant stenosis. Left: No aneurysm, occlusion or significant stenosis. Internal Carotid: Mild plaque bilaterally at the proximal internal carotid arteries. Right: No aneurysm, occlusion or significant stenosis. Left: No aneurysm, occlusion or significant stenosis. Vertebral Artery: Origins are obscured by motion artifact. Right: No aneurysm, occlusion or significant stenosis. Left: Diffusely decreased caliber of the left vertebral artery when compared with the previous exam. Occlusion or near occlusion at the level of C1. Lung Apices: Normal. Bones: Stable appearance of nonunited dens fracture. Stable appearance of fusion between left atlant ooccipital joint degenerative disc changes and facet degenerative changes. Soft Tissues: Normal. IMPRESSION: 1. No change in appearance of [place] of [place]kins vasculature. No evidence of occlusion.. 2. Unremarkable CT Head. 3. Diffusely decreased caliber left vertebral artery appears worsened when compared with the previous exam. Occlusion near the level of C1. 4. Old dens fracture. RADIATION DOSE DELIVERED: 2,164.86mGy.cm Total DLP DATA REPOSITORY: All CT scans at this facility are submitted to the National Radiology Data Registry (NRDR) Dose Index Registry (DIR) with the [employer] (ACR). RADIATION OPTIMIZATION: All CT scans at this facility use at least one of these dose optimization te chniques: automated exposure control; mA and/or kV adjustment per patient size (includes targeted exa ms where dose is matched to clinical indication); or iterative reconstruction.
--- NOTE | 2021-04-06 17:30 | RT.EKG_ITS ---
APPROVED REPORT Exam: Resting ECG Reason for Exam: AMS Patient Location: E HR:74 bpm ECG Measurements Heart Rate 74 AXIS IA 177 P 145 QRSd 94 QRS -20 QT 372 T -3 QTc 414 Conclusion Sinus rhythm. No acute st changes
[2021-04-06 17:38] LABS: Abs Immature Grans 0.01 10^3/uL (0.0-0.06); Absolute Basophil Count 0.02 10^3/uL (0.0-0.2); Absolute Eosinophil Count 0.23 10^3/uL (0.0-0.7); Absolute Lymphocyte Count 1.75 10^3/uL (1.2-3.4); Absolute Monocyte Count 0.47 10^3/uL (0.1-0.8); Absolute Neutrophil Count 3.47 10^3/uL (1.2-6.7); Basophils % 0.3; Eosinophils % 3.9; HCT 42.4 % (40.0-50.0); HGB 14.6 g/dL (13.5-17.5); Immature Grans % 0.2; Lymphocytes % 29.4; MCH 31.5 pg (27.0-33.0); MCHC 34.4 % (32.0-36.0); MCV 91.4 fL (80-95); MPV 9.4 fL (8.0-11.0); Monocytes % 7.9; Neutrophils % 58.3; Nucleated RBC 0 %; Platelet Count 189 10^3/uL (130-400); RBC 4.64 10^6/uL (4.36-5.78); RDW 11.8 % (11.8-14.1); WBC 5.95 10^3/uL (4.4-10.8)
[2021-04-06] MEDS: Omnipaque 350 MG/ML 100 ML BTL IJ (17:49)
[2021-04-06 18:00] LABS: ALT 26 U/L (16-63); AST 18 U/L (15-37); Albumin 3.9 g/dL (3.4-5.0); Alkaline Phosphatase 67 U/L (46-116); Anion Gap 5.3 mmol/L (3-11); BUN 15 mg/dL (7-18); Bilirubin, Total 0.6 mg/dL (0.2-1.0); CO2 30.7 mmol/L (21.0-32.0); Calcium 8.8 mg/dL (8.5-10.1); Chloride 104 mmol/L (98-107); Glucose 124 mg/dL (74-106); Potassium 3.9 mmol/L (3.5-5.1); Sodium 140 mmol/L (136-145); TSH (W/Ref FT4) 4.16 uIU/mL (0.36-3.74); Total Protein 7.3 g/dL (6.4-8.2); Troponin I < 50 ng/L (<or=60)
[2021-04-06 18:09] LABS: ETHANOL BLOOD < 3.0 mg/dL (<10)
--- NOTE | 2021-04-06 18:36 | W.ED.GENAD ---
Discharge Plan Disposition Patient Disposition: [facility] INPATIENT Condition: Serious Discharge Details Clinical Impression: Vertebral artery occlusion, Memory change Primary Care Provider: Peggy Breaux ED Provider: Rosibel Sarmiento Home Meds and New Rx's Prescriptions: No Action ibuprofen 200 mg tablet 200 mg PO Q6H PRNRF: 0 aspirin 325 mg tablet 325 mg PO DAILY RF: 0 multivitamin [Daily Vitamin] 1 EACH tablet 1 ea PO RF: 0 finasteride 5 mg tablet 5 mg PO DAILY Qty: 90 RF: 3 sildenafil [Viagra] 100 mg tablet 50 mg PO PRN Qty: 10 RF: 3 Medical Decision Making CTA with persistent left vertebral occlusion when compared to prior per radiology interpretation in my review No evidence of acute infarct or dissection as discussed above Diagnostic labs do not show acute abnormality, TSH negative Chest x-ray does not show acute abnormality Given patient's persistent symptoms, he will be admitted for TIA versus CVA His symptoms have not changed, specifically not worsened since his evaluation He took a full dose aspirin today therefore I will not repeat this Case discussed with Dr. Mir who is willing to admit patient Pending admission at this time EKG does not show acute abnormality, please see my attending, Dr. Lopez's documentation regarding EKG Medical Records Medical records reviewed: Yes I reviewed the patient's medical records. Lab Data Lab results reviewed: Yes I reviewed the patient's lab results. HPI General Mode of arrival: ambulatory. Date/Time Provider Initiated Documentation: 04/06/21 17:02. Limitations to Documentation: no limitations. Information obtained by: patient and family. HPI Narrative: This 71-year-old gentleman with history of hyperlipidemia, vertebral artery occlusion, dens fracture presents with report of short-term memory loss and some queasiness. He states that he has been forgetful throughout the day. He states that he thinks his symptoms started approximately 4 hours ago. He states that he drove to [employer] and did not recall ever being there previously. He states that has been there numerous times but did not recognize the store and forgot why he had driven there with his partner. He did know his partner and was not unaware of his location. He also states that when he arrived home he forgot all of the presents that render any the correct history was in an envelope that was contained on the table. He states this is unusual for him. He he does not drink alcohol, approximately 2-3 drinks daily of either hard liquor or beer but states that he does not go into withdrawal if you have a day or 2. He denies chest pain or shortness of breath. He denies any strength or sensation change. He denies any headache or dizziness. He denies any time. Related Data Home Medications Medication Instructions Recorded Confirmed multivitamin [Daily Vitamin] 1 ea PO 04/21/13 10/10/20 aspirin 325 mg tablet 325 mg PO DAILY 06/24/20 04/06/21 ibuprofen 200 mg tablet 200 mg PO Q6H PRN 06/24/20 10/10/20 finasteride 5 mg tablet 5 mg PO DAILY #90 tab 09/30/20 04/06/21 sildenafil 100 mg tablet 50 mg PO PRN #10 tab 03/10/21 Previous Rx's Medication Instructions Recorded finasteride 5 mg tablet 5 mg PO DAILY #90 tab 09/30/20 sildenafil 100 mg tablet 50 mg PO PRN #10 tab 03/10/21 Allergies Allergy/AdvReac Type Severity Reaction Status Date / Time No Known Allergies Allergy Verified 04/06/21 17:15 General Stated Complaint: AMS/LOC VONNIE: 2 Review of Systems All systems reviewed & are unremarkable except as noted in HPI and below PFSH All Active Problems (Updated 04/06/21 @ 20:50 by YOLIE Bey) Memory change (Acute) Confusion (Acute) 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) Osteoarthritis (Chronic 04/21/13) Seen on L foot x-ray, likely other locations Right shoulder pain (Acute 09/24/16) Seborrheic dermatitis, unspecified (Chronic 07/09/11) Mustache Alcohol use (Acute) 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) Dens fracture (Acute 05/02/18) Medical History Closed fracture of thoracic vertebral body (05/02/18) T2, T3 and T5 endplate fractures Surgical History Colonoscopy - IV Sedation (~2005) Family History Father Alcohol abuse Personal history of malignant neoplasm thoat Social History Smoking/Tobacco Use Status: Never Smoking risk assessment performed?: Yes Alcohol Intake: former Substance use type: does not use Number of Children: 2 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) Current gender identity: male What type of physical activity do you participate in: walking and additional Details: goes to the gym Frequency: 3-4 times per week Do you feel safe at home: Yes Do you feel safe in your relationship?: Yes Exam Const General: cooperative, comfortable and no acute distress HENMT Mouth: oral mucosae normal Throat: uvula midline Eyes Pupils: PERRL EOM: EOM intact bilaterally Neck Other: No carotid bruit Chest Chest: normal inspection of the chest Resp Effort & Inspection: normal respiratory effort Auscultation: clear to auscultation bilaterally Cardio Rate: regular rate Rhythm: regular rhythm GI Inspection: normal to inspection Neuro General: patient alert and patient oriented x3 Cranial Nerves: CN's II-XI intact bilaterally and tongue midline Cognition: normal cognition Speech: speech normal Gait: normal gait Motor: muscle tone normal throughout, strength 5/5 throughout and no pronator drift Sensory Exam: no sensory deficits noted Other: Negative [id number], negative heel plunkett, nonfocal neurological exam, ambulatory with steady gait Course Vital Signs Vital signs: Vital Signs Temperature 36.4 C L 04/06/21 17:09 Pulse 81 04/06/21 17:09 Respiratory Rate 14 04/06/21 17:09 Blood Pressure 162/72 H 04/06/21 17:09 Pulse Oximetry 100 04/06/21 17:09 Temperature 36.4 C L 04/06/21 17:09 Temperature Source Temporal Artery Scan 04/06/21 17:09 Pulse 81 04/06/21 17:09 Respiratory Rate 14 04/06/21 17:09 Respiratory Effort 04/06/21 17:22 Respiratory Depth Normal 04/06/21 17:22 Respiratory Pattern Normal 04/06/21 17:22 Blood Pressure 162/72 H 04/06/21 17:09 Blood Pressure Position Supine 04/06/21 17:09 Pulse Oximetry 100 04/06/21 17:09 Oxygen Delivery Method Room Air 04/06/21 17:09 Oxygen Flow Rate 0 04/06/21 17:09 Pain Level 0 04/06/21 17:09 Lab/Test Results Lab/Test Results: Laboratory Tests Range/Units 04/06/21 04/06/21 17:10 17:10 WBC (4.4-10.8) 10^3/uL 5.95 RBC (4.36-5.78) 10^6/uL 4.64 Hgb (13.5-17.5) g/dL 14.6 Hct (40.0-50.0) % 42.4 MCV (80-95) fL 91.4 MCH (27.0-33.0) pg 31.5 MCHC (32.0-36.0) % 34.4 RDW (11.8-14.1) % 11.8 Plt Count (130-400) 10^3/uL 189 MPV (8.0-11.0) fL 9.4 Immature Gran % 0.2 Neutrophils % 58.3 Lymphocytes % 29.4 Monocytes % 7.9 Eosinophils % 3.9 Basophils % 0.3 Nucleated RBC % % 0 Absolute Neutrophils (1.2-6.7) 10^3/uL 3.47 Absolute Lymphocytes (1.2-3.4) 10^3/uL 1.75 Absolute Monocytes (0.1-0.8) 10^3/uL 0.47 Absolute Eosinophils (0.0-0.7) 10^3/uL 0.23 Absolute Basophils (0.0-0.2) 10^3/uL 0.02 Sodium (136-145) mmol/L 140 Potassium (3.5-5.1) mmol/L 3.9 Chloride (98-107) mmol/L 104 Carbon Dioxide (21.0-32.0) mmol/L 30.7 Anion Gap (3-11) mmol/L 5.3 BUN (7-18) mg/dL 15 Creatinine (0.70-1.30) mg/dL 1.0 Estimated GFR/1.73 m2 (mL/min/1.73m2) >= 60.00 Glucose (74-106) mg/dL 124 H Calcium (8.5-10.1) mg/dL 8.8 Magnesium (1.8-2.4) mg/dL 2.0 Total Bilirubin (0.2-1.0) mg/dL 0.6 AST (15-37) U/L 18 ALT (16-63) U/L 26 Alkaline Phosphatase (46-116) U/L 67 Troponin I (<or=60) ng/L < 50 Total Protein (6.4-8.2) g/dL 7.3 Albumin (3.4-5.0) g/dL 3.9 TSH (0.36-3.74) uIU/mL 4.16 H Free T4 (0.76-1.46) ng/dL 0.80 Ethyl Alcohol (<10) mg/dL < 3.0 PAWSS Have you Been Recently Intoxicated or Drunk Within the Last 30 days?: No Have you Ever Experienced Previous Episodes of Alcohol Withdrawal?: No Have you ever Experienced Withdrawal Seizures?: No Have you ever Experienced Delirium Tremens(DT)s?: No Have you ever undergone Alcohol Rehabilitation Treatment (i.e, inpt ot outpatient treatment programs)?: No Have you ever Experienced Blackouts?: No Have you ever Combined Alcohol with other Downers within the last 90 days?: No Have you ever Combined Alcohol with any other Substance of Abuse during the last 90 days?: No Result: 0
[2021-04-06 19:04] LABS: Bilirubin Negative (Negative); Blood Negative (Negative); Clarity Clear (Clear); Glucose Negative (Negative); Ketones Negative (Negative); Leukocyte Esterase Negative (Negative); Nitrite Negative (Negative); Specific Gravity 1.015 (1.005-1.025); Urobilinogen 0.2 EU/dL (Up TO 0.2)
--- NOTE | 2021-04-06 19:08 | DI.VRAD_ITS ---
PROCEDURE INFORMATION: Exam: CT Angiography Head With Contrast, Arteriography Exam date and time: 04/06/2021 5:28 PM Age: 71 years old Clinical indication: Other: Short term memory loss x4hrs TECHNIQUE: Imaging protocol: Computed tomography angiography of the head with contrast. Exam focused on the arteries. 3D rendering (Not supervised by radiologist): MIP and/or 3D reconstructed images were created by the technologist. Contrast volume: 100 ml; Contrast route: INTRAVENOUS (IV); COMPARISON: CT BRAIN NECK CTA 07/26/2018 2:07 PM FINDINGS: ANTERIOR CIRCULATION: Right internal carotid artery: Unremarkable. Intracranial segment is patent with no significant stenosis. No aneurysm. Right middle cerebral artery: Unremarkable. No occlusion or significant stenosis. No aneurysm. Right anterior cerebral artery: Unremarkable. No occlusion or significant stenosis. No aneurysm. Left internal carotid artery: Unremarkable. Intracranial segment is patent with no significant stenosis. No aneurysm. Left middle cerebral artery: Unremarkable. No occlusion or significant stenosis. No aneurysm. Left anterior cerebral artery: Unremarkable. No occlusion or significant stenosis. No aneurysm. POSTERIOR CIRCULATION: Right vertebral artery: Unremarkable. No occlusion or significant stenosis. No aneurysm. Left vertebral artery: Intradural segment is recanalized by collaterals. Basilar artery: Unremarkable. No occlusion or significant stenosis. No aneurysm. Right posterior cerebral artery: origin. Unremarkable. No occlusion or significant stenosis. No aneurysm. Left posterior cerebral artery: Unremarkable. No occlusion or significant stenosis. No aneurysm. Vasculature: Intracranial atherosclerotic calcifications. Brain: No definite mass, mass effect, or midline shift. Cerebral ventricles: No ventriculomegaly. Bones/joints: Unremarkable. No acute fracture. Soft tissues: Unremarkable. IMPRESSION: 1. No large vessel stenosis or occlusion. 2. Generalized irregularity of the distal intracranial vasculature, compatible with atherosclerosis. PROCEDURE INFORMATION: Exam: CT Angiography Neck With Contrast Exam date and time: 04/06/2021 5:28 PM Age: 71 years old Clinical indication: Other: Short term memory loss x4hrs TECHNIQUE: Imaging protocol: Computed tomography angiography of the neck with contrast. 3D rendering (Not supervised by radiologist): MIP and/or 3D reconstructed images were created by the technologist. Contrast volume: 100 ml; Contrast route: INTRAVENOUS (IV); COMPARISON: CT BRAIN NECK CTA 07/26/2018 2:07 PM FINDINGS: Right common carotid artery: No stenosis. No dissection or occlusion. Right internal carotid artery: Plaque is present in the proximal internal carotid artery without stenosis. Right external carotid artery: No occlusion or stenosis of the origin. Left common carotid artery: No stenosis. No dissection or occlusion. Left internal carotid artery: Plaque is present in the proximal internal carotid artery without stenosis. Left external carotid artery: No occlusion or stenosis of the origin. Right vertebral artery: Origin obscured by motion artifact. No stenosis. No dissection or occlusion. Left vertebral artery: Origin obscured by motion artifact. Left vertebral artery appears diffusely attenuated when compared to the prior study and remains occluded at the level of C1. Soft tissues: Normal. No significant soft tissue swelling. Bones/joints: Fracture nonunion of the base of the dens. Deformity with fusion of the left atlantooccipital joint. Likely chronic upper endplate abnormalities at the T2 through T4 vertebral bodies. Multilevel disc findings: Multilevel disc height loss of the lower cervical spine. IMPRESSION: 1. No stenosis or occlusion of the carotid system. 2. Left vertebral artery appears diffusely attenuated when compared to the prior study and remains occluded at the level of C1. 3. Multiple remote traumatic abnormalities as above. REFERENCES: NASCET CRITERIA. The degree of internal carotid artery stenosis is based on NASCET criteria. Normal is no stenosis. Mild is less than 50% stenosis. Moderate is 50-69% stenosis. Severe is 70% to 99% stenosis. Total occlusion is no detectable patent lumen. Dictated and Authenticated by: Markus Peacock MD. Ordering:MARIA G Gleason MD
--- NOTE | 2021-04-06 19:09 | DI.VRAD_ITS ---
PROCEDURE INFORMATION: Exam: XR Chest Exam date and time: 04/06/2021 5:28 PM Age: 71 years old Clinical indication: Other: Memory changes TECHNIQUE: Imaging protocol: XR of the chest. Views: 2 views. COMPARISON: CT CHEST/ABD/PEL W 05/01/2018 10:17 PM FINDINGS: Lungs: Unremarkable. No consolidation. Pleural spaces: Unremarkable. No pleural effusion. No pneumothorax. Heart/Mediastinum: Unremarkable. No cardiomegaly. Bones/joints: Multilevel disc height loss of the thoracic spine. IMPRESSION: No acute findings. Dictated and Authenticated by: Markus Peacock MD. Ordering:MARIA G Gleason MD
--- NOTE | 2021-04-06 20:21 | W.PM.HP.N ---
Date of service: 04/06/21 Time of Service: 20:22 Assessment and Plan Assessment and plan (1) Confusion: Status: Acute Assessment and plan: I think it highly likely that this is transient global amnesia, though aniket stroke involving memory centers not impossible, and there does seem to be some residual deficit at this point (though we are still only a few hours into the event). Will continue ASA as is and will plan on MRI in AM. Please note that patient was initially indicating he wished to go home, but after his discussing it with his daughter he agrees to stay for tonight. Reviewed ADs, requests Full Code. History of Present Illness History of Present Illness Chief Complaint: confusion Narrative: 71 male reports sudden onset of sense of vague disorientation this afternoon: couldn't recall exactly who he had wrapped presents for; drove to [facility] and couldn't identify owners of homes along the way who he otherwise knew were well known to him; once at [facility] he had disorienting sense that he did not recognize the store, even though he had been there many times. In ER w/u essentially unremarkable, including CBC, chemistries (save incidental glucose 124 and TSH 4.1); negative U/A and EtOH; and CTA head w/o acute findings and old vertebral artery occlusion (with collaterals). At present time he feels he is more or less back to his usual self. Daughter is here with him and concurs. Has h/o closed head injury 3 years [employer] with C2 fracture and verytebral artery occlusion, but no apparent sequelae. Denies GARCIA, visual changes or lateralizing symptoms. Is already on ASA prophylaxis. 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 [place] Actinic keratosis (Chronic 04/21/13) Scalp; Dr. 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) Osteoarthritis (Chronic 04/21/13) Seen on L foot x-ray, likely other locations Right shoulder pain (Acute 09/24/16) Seborrheic dermatitis, unspecified (Chronic 07/09/11) Mustache Alcohol use (Acute) 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) Dens fracture (Acute 05/02/18) Medical History Closed fracture of thoracic vertebral body (05/02/18) T2, T3 and T5 endplate fractures Surgical History Colonoscopy - IV Sedation (~2005) Family History Father Alcohol abuse Personal history of malignant neoplasm thoat Social History Smoking/Tobacco Use Status: Never Smoking risk assessment performed?: Yes Alcohol Intake: former Substance use type: does not use Number of Children: 2 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) Current gender identity: male What type of physical activity do you participate in: walking and additional Details: goes to the gym Frequency: 3-4 times per week Do you feel safe at home: Yes Do you feel safe in your relationship?: Yes Meds Allergies and Home Medications Allergies Allergy/AdvReac Type Severity Reaction Status Date / Time No Known Allergies Allergy Verified 04/06/21 17:15 Home Medications Medication Instructions Recorded Confirmed Type multivitamin [Daily Vitamin] 1 ea PO 04/21/13 10/10/20 History aspirin 325 mg tablet 325 mg PO DAILY 06/24/20 04/06/21 History ibuprofen 200 mg tablet 200 mg PO Q6H PRN 06/24/20 10/10/20 History finasteride 5 mg tablet 5 mg PO DAILY #90 tab 09/30/20 04/06/21 Rx sildenafil 100 mg tablet 50 mg PO PRN #10 tab 03/10/21 Rx Exam Narrative Exam Narrative: 155/64, 77, 36.4, 16, 99% RA. HEENT atraumatic; neck supple w/o bruit; lungs clear; heart RRR w/o MRG; abdomen soft and NT; extremitie w/o edema, pulse 2+/=; neuro Ox3, knows president, language fluent;memory 1/3 @ 5 minutes, past Presidents fair-poor (gets Obama as the colored one, serial sevens good with one error; WORLD forward and backwards; CN: PERRL, EOMI, bhandari full, no facial asymmetry; motor 5/5; Results Labs Result diagrams: 04/06/21 17:10 04/06/21 17:10 Labs: Laboratory Results - last 24 hr 04/06/21 04/06/21 04/06/21 17:10 17:10 18:50 WBC 5.95 RBC 4.64 Hgb 14.6 Hct 42.4 MCV 91.4 MCH 31.5 MCHC 34.4 RDW 11.8 Plt Count 189 MPV 9.4 Immature Gran % 0.2 Neutrophils % 58.3 Lymphocytes % 29.4 Monocytes % 7.9 Eosinophils % 3.9 Basophils % 0.3 Nucleated RBC % 0 Absolute Neutrophils 3.47 Absolute Lymphocytes 1.75 Absolute Monocytes 0.47 Absolute Eosinophils 0.23 Absolute Basophils 0.02 Sodium 140 Potassium 3.9 Chloride 104 Carbon Dioxide 30.7 Anion Gap 5.3 BUN 15 Creatinine 1.0 Estimated GFR/1.73 m2 >= 60.00 Glucose 124 H Calcium 8.8 Magnesium 2.0 Total Bilirubin 0.6 AST 18 ALT 26 Alkaline Phosphatase 67 Troponin I < 50 Total Protein 7.3 Albumin 3.9 TSH 4.16 H Free T4 0.80 Urine Color Straw Urine Clarity Clear Urine pH 7.0 Ur Specific [place] 1.015 Urine Protein Negative Urine Ketones Negative Urine Blood Negative Urine Nitrite Negative Urine Bilirubin Negative Urine Urobilinogen 0.2 Ur Leukocyte Esterase Negative Urine Glucose Negative Ethyl Alcohol < 3.0 Last Vital Signs Temp 36.4 C L 04/06/21 17:09 Pulse 76 04/06/21 19:31 Resp 16 04/06/21 17:31 BP 155/64 H 04/06/21 19:31 Pulse Ox 97 04/06/21 19:40 PAWSS Have you Been Recently Intoxicated or Drunk Within the Last 30 days?: No Have you Ever Experienced Previous Episodes of Alcohol Withdrawal?: No Have you ever Experienced Withdrawal Seizures?: No Have you ever Experienced Delirium Tremens(DT)s?: No Have you ever undergone Alcohol Rehabilitation Treatment (i.e, inpt ot outpatient treatment programs)?: No Have you ever Experienced Blackouts?: No Have you ever Combined Alcohol with other Downers within the last 90 days?: No Have you ever Combined Alcohol with any other Substance of Abuse during the last 90 days?: No Result: 0
[2021-04-06 21:02] LABS: Source Nasal/Nares
[2021-04-06 21:57] LABS: COVID-19 PCR Negative (Negative)
--- NOTE | 2021-04-07 | DI.MRI_ITS ---
Exam(s) MR BRAIN WO/W EXAM: MR BRAIN WO/W CLINICAL HISTORY: transient disorientation, probable TGA. TECHNIQUE: Multiplanar multisequence MRI of the brain was performed. CONTRAST MATERIAL: IV Contrast: 16 ML of Dotarem contrast administered. COMPARISON: No exams were available for comparison FINDINGS: VENTRICLES AND EXTRA AXIAL SPACES: Normal in size and morphology for the patient's age. HEMORRHAGE: None. CEREBRAL PARENCHYMA: No focus of restricted diffusion to suggest acute infarct. No space-occupying le andrés identified. MIDLINE SHIFT: None. BRAINSTEM/CEREBELLUM: Normal. CALVARIUM: Normal. ENHANCEMENT: No suspicious enhancement identified. VISUALIZED PARANASAL SINUSES/MASTOIDS: Clear. OTHER FINDINGS: None. IMPRESSION: Unremarkable MRI of the brain. DATA REPOSITORY:
[2021-04-07 04:02] VITALS: BP 152/73; PULSE 68; RESP 16; TEMP 36.4; O2SAT 98
[2021-04-07 07:11] VITALS: PULSE 57
[2021-04-07 07:39] VITALS: BP 137/69; PULSE 64; RESP 18; TEMP 36.1; O2SAT 99
[2021-04-07] MEDS: Normal Saline Flush 10 ML SYR IVP ×2 (07:51→13:43)
[2021-04-07] MEDS: Finasteride 5 MG TAB PO (07:52)
[2021-04-07] MEDS: Aspirin 325 MG TAB PO (07:52)
[2021-04-07 11:47] VITALS: BP 135/85; PULSE 57; RESP 17; TEMP 36.5; O2SAT 99
--- NOTE | 2021-04-07 12:11 | W.PM.PROGNOT ---
Date of Service Date of service: 04/07/21 Time of Service: 12:11 Assessment and Plan Assessment and plan (1) Confusion: Status: Acute Assessment and plan: transient confusion however, he seems to have some symptoms to suggest perhaps early onset of mild cognitive impairment. I recommend that if his MRI of his brain shows no evidence for stroke, then he ought to have outpatient follow up w/ neurology and/or neuropsychologist for extensive memory/cognitive function tests to assess for MCI or early dementia. Subjective Subjective Interval history since last seen: Patient presented w/ acute confusion last night. He had wrapped [place] presents and could not recall what he had wrapped. [facility] also [facility] in [place], [place] and could not recall what he went there for and felt as if he had never been there before. 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 He denies any complaints from customers or business he has dealt with in regard to missed orders or mistaken deliveries. He has no hx of stroke but suffered from a skull and C2 fracture 3 yrs ago when he fell down some stairs. 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 His symptoms were already resolving by the time he was admitted last night. Exam Narrative Exam Narrative: alert/oriented x 3 Normal facial appearance, normal speech pattern; no facial asymmetry LUngs: clear Heart: RRR, no murmur or rub Neck: supple w/out bruits Heent: scar over top of his head from prior trauma Motor: normal ROM and strength; normal tactile sensation; no focal CN deficits Objective Last Vital Signs Temp 36.5 C 04/07/21 11:47 Pulse 57 L 04/07/21 11:47 Resp 17 04/07/21 11:47 BP 135/85 04/07/21 11:47 Pulse Ox 99 04/07/21 11:47 Laboratory Results - last 24 hr 04/06/21 04/06/21 04/06/21 17:10 17:10 18:50 WBC 5.95 RBC 4.64 Hgb 14.6 Hct 42.4 MCV 91.4 MCH 31.5 MCHC 34.4 RDW 11.8 Plt Count 189 MPV 9.4 Immature Gran % 0.2 Neutrophils % 58.3 Lymphocytes % 29.4 Monocytes % 7.9 Eosinophils % 3.9 Basophils % 0.3 Nucleated RBC % 0 Absolute Neutrophils 3.47 Absolute Lymphocytes 1.75 Absolute Monocytes 0.47 Absolute Eosinophils 0.23 Absolute Basophils 0.02 Sodium 140 Potassium 3.9 Chloride 104 Carbon Dioxide 30.7 Anion Gap 5.3 BUN 15 Creatinine 1.0 Estimated GFR/1.73 m2 >= 60.00 Glucose 124 H Calcium 8.8 Magnesium 2.0 Total Bilirubin 0.6 AST 18 ALT 26 Alkaline Phosphatase 67 Troponin I < 50 Total Protein 7.3 Albumin 3.9 TSH 4.16 H Free T4 0.80 Urine Color Straw Urine Clarity Clear Urine pH 7.0 Ur Specific [place] 1.015 Urine Protein Negative Urine Ketones Negative Urine Blood Negative Urine Nitrite Negative Urine Bilirubin Negative Urine Urobilinogen 0.2 Ur Leukocyte Esterase Negative Urine Glucose Negative Ethyl Alcohol < 3.0 COVID-19 Source SARS-CoV-2 (PCR) 04/06/21 21:00 WBC RBC Hgb Hct MCV MCH MCHC RDW Plt Count MPV Immature Gran % Neutrophils % Lymphocytes % Monocytes % Eosinophils % Basophils % Nucleated RBC % Absolute Neutrophils Absolute Lymphocytes Absolute Monocytes Absolute Eosinophils Absolute Basophils Sodium Potassium Chloride Carbon Dioxide Anion Gap BUN Creatinine Estimated GFR/1.73 m2 Glucose Calcium Magnesium Total Bilirubin AST ALT Alkaline Phosphatase Troponin I Total Protein Albumin TSH Free T4 Urine Color Urine Clarity Urine pH Ur Specific [place] Urine Protein Urine Ketones Urine Blood Urine Nitrite Urine Bilirubin Urine Urobilinogen Ur Leukocyte Esterase Urine Glucose Ethyl Alcohol COVID-19 Source Nasal/Nares SARS-CoV-2 (PCR) Negative PAWSS Have you Been Recently Intoxicated or Drunk Within the Last 30 days?: No Have you Ever Experienced Previous Episodes of Alcohol Withdrawal?: No Have you ever Experienced Withdrawal Seizures?: No Have you ever Experienced Delirium Tremens(DT)s?: No Have you ever undergone Alcohol Rehabilitation Treatment (i.e, inpt ot outpatient treatment programs)?: No Have you ever Experienced Blackouts?: No Have you ever Combined Alcohol with other Downers within the last 90 days?: No Have you ever Combined Alcohol with any other Substance of Abuse during the last 90 days?: No Result: 0
[2021-04-07 12:30] VITALS: PULSE 66
--- NOTE | 2021-04-07 13:38 | PDOC.CMIN ---
- If Service Date Differs Date of service: 04/07/21 Time of Service: 13:41 Care Management Initial Assess REASON FOR HOSPITALIZATION:: Transient Confusion PAST MEDICAL HISTORY/PAST SURGICAL HISTORY:: Medical History . Closed fracture of thoracic vertebral body (05/02/18). T2, T3 and T5 endplate fractures. Surgical History . Colonoscopy - IV Sedation (~2005) PREVIOUS FUNCTIONAL STATUS/SOCIAL/FAMILY SUPPORTS:: Hai resides in [place], [place]. He is and reports a son and daughter who reside locally, as well as grandchildren. 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 He is independent with all ADLs at baseline. CURRENT FUNCTIONAL STATUS:: Hai is ambulating through the halls independently, pleasant in interaction. ADVANCE DIRECTIVES:: On file, Radha as agent. Has patient been provided with info about the portal/API?: Yes Did the patient sign up for the portal?: No CODE STATUS:: Full Code INSURANCE COVERAGE / FINANCIAL ISSUES:: BC/BS. Medicare CURRENT HOME/COMMUNITY SERVICES/EQUIPMENT:: None, currently. PRIMARY CARE PHYSICIAN:: Peggy Breaux POTENTIAL DISCHARGE NEEDS:: Follow up appointments. PATIENT/FAMILY EDUCATION NEEDS:: Review discharge instructions, discuss Ask Me Three. ANTICIPATED BARRIERS TO DISCHARGE:: None identified. TRANSPORTATION:: Via private vehicle with a friend or family. PLAN:: Hai will return home when ready per MD. He will follow up with his PCP and plan of care as prescribed. He will transport via private vehicle with family or a friend.
[2021-04-07] MEDS: Gadoterate meglumine 20 ML VIAL 16 ML IVP (13:43)
[2021-04-07 15:40] VITALS: BP 117/61; PULSE 71; RESP 16; TEMP 36.5; O2SAT 98
--- NOTE | 2021-04-07 15:41 | W.PM.DS.N ---
Date of service: 04/07/21 Time of Service: 15:41 DS: Diagnosis Discharge Diagnosis (1) Confusion: Status: Acute Discharge Plan Disposition Patient Disposition: HOME Condition: Improving Discharge Details Reason For Visit: Transient Confusion Admit Date/Time: 04/06/21 20:42 Admit Provider: Garrett Mir Attending Provider: Garrett Mir Primary Care Provider: Peggy Breaux Hospital Course Hospital Course: 71-year-old male with a past medical history of closed head injury with skull fracture and C2 fracture from 3 years ago complicated by left vertebral artery occlusion. Patient presented to the emergency department yesterday with sudden onset of vague disorientation in which he had [place] presents but cannot recall who the presents were for and drove to [facility] and felt that he was in a new store even though he had been in the same [employer] many times before. Patient is a consumer of alcohol usually drinks 2-3 beers or mixed drinks per day but has never had alcohol withdrawal seizures. Patient denied any symptoms of focal paresthesias or paraparesis and no headaches or dizziness or loss of consciousness. He underwent a CTA of his head and neck. CT of the head was unremarkable. He had no occlusion of his minto of [place] vasculature. He had diffusely decreased caliber of his left vertebral artery which appeared to be worse compared to previous exam with an occlusion to the level of C1. He had a healed old dens fracture. By the time the patient was admitted to the medical/surgical floor he has confusion had cleared. He was admitted overnight monitor on telemetry. He remained in sinus rhythm with heart rates in the high 50s to low 80s. He had no further confusional spells. Patient underwent MRI scan of the brain the next day which was read as unremarkable. This was a MRI performed with and without contrast. MRI scan of his brain was unremarkable. As the patient is now back to his baseline and was requesting to be discharged home the patient was discharged home follow-up with his PCP. It is recommended that his PCP refer him for neuropsychiatric evaluation as the patient demonstrates some symptoms of mild cognitive impairment versus early dementia. Home Meds and New Rx's Prescriptions: Continued ibuprofen 200 mg tablet 200 mg PO Q6H PRNRF: 0 aspirin 325 mg tablet 325 mg PO DAILY RF: 0 multivitamin [Daily Vitamin] 1 EACH tablet 1 ea PO RF: 0 finasteride 5 mg tablet 5 mg PO DAILY Qty: 90 RF: 3 sildenafil [Viagra] 100 mg tablet 50 mg PO PRN Qty: 10 RF: 3 Discharge Instructions Instructions: Transient Global Amnesia (GEN), Memory Loss in Older Adults (GEN) Additional Instructions: It is recommended that you have your primary care provider refer you for further neuropsychological testing to evaluate for mild cognitive impairment vs age related memory loss vs early dementia. Stand Alone Forms: Nursing Discharge Form Referrals: Peggy Breaux NP [Primary Care Provider] - 04/17/21 1:30 pm Activity:: Activity as Tolerated Equipment/Supplies:: No Equipment Needed Diet:: Normal Diet DS: Summary Time Spent with Patient providing and/or coordinating discharge services: Less than 30 minutes Status at Discharge Functional status at discharge: independent ambulation Overall status at discharge: patient is back to baseline Mental Status: mental status grossly normal Speech and Movement: speech and movement normal Mood: congruent mood Affect: normal affect Exam Narrative Exam Narrative: alert/oriented x 3 Normal facial appearance, normal speech pattern; no facial asymmetry LUngs: clear Heart: RRR, no murmur or rub Neck: supple w/out bruits Heent: scar over top of his head from prior trauma Motor: normal ROM and strength; normal tactile sensation; no focal CN deficits Psych Mental Status: mental status grossly normal Speech and Movement: speech and movement normal Mood: congruent mood Affect: normal affect DS: Data Vitals/I&O Vitals and I&O: Vital Signs Temperature 36.5 C 04/07/21 11:47 Temperature Source Tympanic 04/07/21 07:39 Pulse 57 L 04/07/21 11:47 Pulse Rhythm Regular 04/07/21 12:04 Pulse 73 04/06/21 19:40 Respiratory Rate 17 04/07/21 11:47 Respiratory Effort Non-Labored 04/07/21 12:04 Respiratory Depth Normal 04/07/21 12:04 Respiratory Pattern Normal 04/07/21 12:04 Blood Pressure 135/85 04/07/21 11:47 Blood Pressure Mean 84 04/06/21 19:31 Blood Pressure Position Supine 04/06/21 17:09 Pulse Oximetry 99 04/07/21 11:47 Oxygen Delivery Method Room Air 04/07/21 11:47 Oxygen Flow Rate 0 04/07/21 11:47 Pain Level 0 04/07/21 11:47 Intake & Output 04/06/21 04/07/21 04/07/21 23:59 11:59 23:59 Intake Total 10 / 130 120 / 130 Output Total 400 / 400 Balance -390 / -270 120 / -270 Weight 80.1 kg Intake: IV 10 / 10 Oral 120 / 120 Output: Urine 400 / 400 Other: Urine Color Yellow Urine Appearance Clear Urine Odor Normal Voiding Methods Toilet Data Completed and Pending Labs on day of discharge: Labs from last 24 hours 04/06/21 04/06/21 04/06/21 21:00 18:50 17:10 WBC 5.95 RBC 4.64 Hgb 14.6 Hct 42.4 MCV 91.4 MCH 31.5 MCHC 34.4 RDW 11.8 Plt Count 189 MPV 9.4 Immature Gran % 0.2 Neutrophils % 58.3 Lymphocytes % 29.4 Monocytes % 7.9 Eosinophils % 3.9 Basophils % 0.3 Nucleated RBC % 0 Absolute Neutrophils 3.47 Absolute Lymphocytes 1.75 Absolute Monocytes 0.47 Absolute Eosinophils 0.23 Absolute Basophils 0.02 Sodium Potassium Chloride Carbon Dioxide Anion Gap BUN Creatinine Estimated GFR/1.73 m2 Glucose Calcium Magnesium Total Bilirubin AST ALT Alkaline Phosphatase Troponin I Total Protein Albumin TSH Free T4 Urine Color Straw Urine Clarity Clear Urine pH 7.0 Ur Specific [place] 1.015 Urine Protein Negative Urine Ketones Negative Urine Blood Negative Urine Nitrite Negative Urine Bilirubin Negative Urine Urobilinogen 0.2 Ur Leukocyte Esterase Negative Urine Glucose Negative Ethyl Alcohol COVID-19 Source Nasal/Nares SARS-CoV-2 (PCR) Negative 04/06/21 17:10 WBC RBC Hgb Hct MCV MCH MCHC RDW Plt Count MPV Immature Gran % Neutrophils % Lymphocytes % Monocytes % Eosinophils % Basophils % Nucleated RBC % Absolute Neutrophils Absolute Lymphocytes Absolute Monocytes Absolute Eosinophils Absolute Basophils Sodium 140 Potassium 3.9 Chloride 104 Carbon Dioxide 30.7 Anion Gap 5.3 BUN 15 Creatinine 1.0 Estimated GFR/1.73 m2 >= 60.00 Glucose 124 H Calcium 8.8 Magnesium 2.0 Total Bilirubin 0.6 AST 18 ALT 26 Alkaline Phosphatase 67 Troponin I < 50 Total Protein 7.3 Albumin 3.9 TSH 4.16 H Free T4 0.80 Urine Color Urine Clarity Urine pH Ur Specific [place] Urine Protein Urine Ketones Urine Blood Urine Nitrite Urine Bilirubin Urine Urobilinogen Ur Leukocyte Esterase Urine Glucose Ethyl Alcohol < 3.0 COVID-19 Source SARS-CoV-2 (PCR) PFSH All Active Problems (Updated 04/06/21 @ 20:50 by YOLIE Bey) Memory change (Acute) Confusion (Acute) 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) Osteoarthritis (Chronic 04/21/13) Seen on L foot x-ray, likely other locations Right shoulder pain (Acute 09/24/16) Seborrheic dermatitis, unspecified (Chronic 07/09/11) Mustache Alcohol use (Acute) 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) Dens fracture (Acute 05/02/18) Medical History Closed fracture of thoracic vertebral body (05/02/18) T2, T3 and T5 endplate fractures Surgical History Colonoscopy - IV Sedation (~2005) Family History Father Alcohol abuse Personal history of malignant neoplasm thoat Social History Smoking/Tobacco Use Status: Never Smoking risk assessment performed?: Yes Alcohol Intake: former Substance use type: does not use Number of Children: 2 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
== END 2021-04-07 16:34 | disposition home or self-care (01) ==
LOC: ER 20:56 → MS 21:48
PROVIDERS: Admitting Provider General Practice; Emergency Provider Physician Assistant; PCP Nurse Practitioner Family; Visit Provider General Practice
DX: R41.0 Disorientation, unspecified (principal); N40.0 Benign prostatic hyperplasia without lower urinary tract symptoms; N39.46 Mixed incontinence; K57.30 Diverticulosis of large intestine without perforation or abscess without bleeding; R73.01 Impaired fasting glucose; M51.26 Other intervertebral disc displacement, lumbar region; Z20.822 Contact with and (suspected) exposure to COVID-19; I65.02 Occlusion and stenosis of left vertebral artery
CPT/HCPCS: 36416; 70496; 70498; 70553; 80053; 82962; 87635; 93005; 99285; 71046; 80320; 81003; 83735; 84439; 84443; 84484; 85025; 93010; 99217; 99219; 99224; G0378; J3490

== ENCOUNTER 2021-04-25 03:45 | Outpatient (CLI) | payer MEDICARE, BC, SELFPAY ==
[2021-04-25 16:34] LABS: Vitamin B12 438 pg/mL (193-986)
[2021-04-28 11:46] LABS: Syphilis Serology (RPR) Negative (Negative)
== END 2021-04-25 03:46 | disposition home or self-care (01) ==
LOC: LBO 03:45
PROVIDERS: PCP Nurse Practitioner Family; Visit Provider Nurse Practitioner Family
DX: R41.3 Other amnesia (principal)
CPT/HCPCS: 36415; 82607; 86592

== ENCOUNTER → 2021-04-29 09:55 | Outpatient (BNVA) | payer MEDICARE, BC, SELFPAY | PROVIDERS: PCP Nurse Practitioner Family; Referring Provider Nurse Practitioner Family; Visit Provider Urology | DX: N42.9 Disorder of prostate, unspecified (principal); R97.20 Elevated prostate specific antigen [PSA]; N52.9 Male erectile dysfunction, unspecified; Z80.42 Family history of malignant neoplasm of prostate | CPT/HCPCS: 99214 ==

== ENCOUNTER → 2021-05-30 14:45 | Outpatient (BNVA) | payer MEDICARE, BC, SELFPAY | PROVIDERS: PCP Nurse Practitioner Family; Referring Provider Nurse Practitioner Family; Visit Provider Urology | DX: R97.20 Elevated prostate specific antigen [PSA] (principal); N42.9 Disorder of prostate, unspecified | CPT/HCPCS: 99215 ==

== ENCOUNTER → 2021-06-24 02:35 | Outpatient (CLI) | payer MEDICARE, BC, SELFPAY ==
--- NOTE | 2021-06-24 07:00 | DI.US_ITS ---
Exam(s) US PROSTATE BIOPSY EXAM: US PROSTATE BIOPSY CLINICAL HISTORY: r/o prostate cancer,elevated psa,n42.9,r97.20,disorder of prostate TECHNIQUE: Ultrasound performed using standard protocol. COMPARISON: US ABDOMEN ULTRASOUND (P) from 03/01/2012 FINDINGS: Side guidance was provided during prostate biopsy. Radiologist not present IMPRESSION: DATA REPOSITORY:
--- NOTE | 2021-06-24 09:30 | PROST_PTH ---
PATIENT: Hai Taylor LOC: [facility] U#:[id number] AGE/SX: 75/M ROOM: RE06/24/[address]: Lloyd Ayoub MD : [id number] BED: DIS: SPEC #: [id number] RECD: 06/24/21 12:46 STATUS: CLAUDE CHAVEZ #: [id number] ADDIE: 06/24/21 09:[address]: Lloyd Ayoub DEPT: Surgical Specimen RECD BY: Rosibel Melendez ENTERED: 06/24/21 12:49 SP TYPE: PROST OTHR DR: Peggy Breaux APRN Tissues: 1 - PROSTATE NEEDLE BIOPSY 2 - PROSTATE NEEDLE BIOPSY 3 - PROSTATE NEEDLE BIOPSY 4 - PROSTATE NEEDLE BIOPSY 5 - PROSTATE NEEDLE BIOPSY 6 - PROSTATE NEEDLE BIOPSY 7 - PROSTATE NEEDLE BIOPSY 8 - PROSTATE NEEDLE BIOPSY 9 - PROSTATE NEEDLE BIOPSY 10 - PROSTATE NEEDLE BIOPSY 11 - PROSTATE NEEDLE BIOPSY 12 - PROSTATE NEEDLE BIOPSY Procedures: GROSS AND MICRO LEVEL 4 Comments: [id number]
--- NOTE | 2021-06-24 09:51 | W.PM.OP ---
Date of service: 06/24/21 Time of Service: 09:51 Operative Note Operative Note DATE OF PROCEDURE: 06/24/21 PRE-OP DIAGNOSIS: Elevated PSA Abnormal prostate exam PROCEDURE: Transrectal ultrasound guided biopsy of the prostate SURGEON: Lloyd Ayoub ANESTHESIA TYPE: Local By Surgeon Refer to Anesthesia Record ESTIMATED BLOOD LOSS: 10 PATHOLOGY: other (Laterally directed prostate biopsies) Patient was transported to: no change Patient's condition: stable Implants: none Indications: This is a 71-year-old gentleman who is chronically on 5 alpha reductase inhibitors. His PSA level is 4.1 ng/mL, but when corrected for his medication use, the PSA is actually elevated. In addition to the elevated PSA, he has a palpable abnormality on the right side of the prostate. A prostate MRI describes the lesion is likely to be a clinically significant prostate cancer. He presents now for biopsy. Findings: Hypoechoic area in the right mid prostate peripheral zone Procedure Description: The patient was given a mechanical and antibiotic bowel prep. He was brought to the radiology suite on 06/24/2021. He was placed in the left lateral position. Transrectal imaging of the prostate was performed using a variable megahertz transducer. The prostate was imaged in the transverse and longitudinal planes. The prostatic volume was calculated at 37 cc. The transition zone was slightly enlarged. There were calcifications noted near the junction of the transition and peripheral zones. There was a discrete hypoechoic area in the right mid peripheral zone laterally. This area corresponds to the palpable abnormality and the prostate MRI abnormality. A periprostatic nerve block was then performed using 1% lidocaine without epinephrine. A total of 12 laterally directed biopsies were taken. Each biopsy was labeled and sent to pathology for permanent section. One of the biopsies was taken directly through the hypoechoic area. The patient tolerated this procedure well with no complications.
== END ==
PROVIDERS: PCP Nurse Practitioner Family; Visit Provider Urology
DX: N42.9 Disorder of prostate, unspecified (principal); R97.20 Elevated prostate specific antigen [PSA]
CPT/HCPCS: 88305; 76942

== ENCOUNTER → 2021-07-07 10:52 | Outpatient (BNVA) | payer MEDICARE, BC, SELFPAY | PROVIDERS: PCP Nurse Practitioner Family; Referring Provider Nurse Practitioner Family; Visit Provider Urology | DX: C61 Malignant neoplasm of prostate (principal) | CPT/HCPCS: 99215 ==

== ENCOUNTER → 2021-07-09 01:15 | Outpatient (CLI) | payer MEDICARE, BC, SELFPAY ==
--- NOTE | 2021-07-09 06:45 | DI.NM_ITS ---
Exam(s) NM BONE SCAN WHOLE BODY GRP EXAM: IN BONE SCAN WHOLE BODY GRP CLINICAL HISTORY: baseline study - new diagnosis prostate cancer,C61. TECHNIQUE: Injected Dose: 25 mCi Tc-99m MDP Delayed Images: 2-3 hours. COMPARISON: No exams were available for comparison FINDINGS: There is no abnormal skeletal uptake which would suggest osseous metastatic disease. Increased uptake in the lateral aspect of the left wrist is consistent with degenerative change at th e 1st carpometacarpal joint. Uptake in both great toes is consistent with degenerative change at the great toe metatarsophalangeal joints of both feet. IMPRESSION: 1. No evidence of osseous metastatic disease. 2. Other uptake as described above in the left wrist and both great toes consistent with degenerativ e changes. DATA REPOSITORY:
== END ==
PROVIDERS: PCP Nurse Practitioner Family; Visit Provider Urology
DX: C61 Malignant neoplasm of prostate (principal); M18.9 Osteoarthritis of first carpometacarpal joint, unspecified; M19.071 Primary osteoarthritis, right ankle and foot; M19.072 Primary osteoarthritis, left ankle and foot
CPT/HCPCS: 78306

== ENCOUNTER → 2021-07-10 08:50 | Outpatient (BNVA) | payer MEDICARE, BC, SELFPAY | PROVIDERS: PCP Nurse Practitioner Family; Referring Provider Neurological Surgery; Visit Provider Psychiatry & Neurology Neurology | DX: G31.84 Mild cognitive impairment of uncertain or unknown etiology (principal); Z87.820 Personal history of traumatic brain injury; G47.00 Insomnia, unspecified | CPT/HCPCS: 99215 ==

== ENCOUNTER 2021-09-16 13:37 | Outpatient (CLI) | payer MEDICARE, BC, SELFPAY ==
[2021-09-17 17:14] LABS: PSA, Ultrasensitive 9.2 ng/mL (<= 6.5)
== END 2021-09-16 13:38 | disposition home or self-care (01) ==
LOC: LBO 13:48
PROVIDERS: PCP Nurse Practitioner Family; Visit Provider Radiology Radiation Oncology
DX: C61 Malignant neoplasm of prostate (principal)
CPT/HCPCS: 36415; 84153; 83036

== ENCOUNTER 2021-10-27 03:05 | Outpatient (CLI) | payer MEDICARE, BC, SELFPAY ==
[2021-10-27 12:12] LABS: ALT 23 U/L (16-63); AST 16 U/L (15-37); Albumin 3.7 g/dL (3.4-5.0); Alkaline Phosphatase 68 U/L (46-116); Bilirubin, Direct 0.2 mg/dL (0.0-0.2); Bilirubin, Total 0.8 mg/dL (0.2-1.0)
== END 2021-10-27 03:06 | disposition home or self-care (01) ==
LOC: LBO 03:05
PROVIDERS: PCP Nurse Practitioner Family; Visit Provider Radiology Radiation Oncology
DX: C61 Malignant neoplasm of prostate (principal)
CPT/HCPCS: 36415; 80076

== ENCOUNTER 2021-11-28 01:16 | Outpatient (CLI) | payer MEDICARE, BC, SELFPAY ==
[2021-11-28 11:25] LABS: ALT 45 U/L (16-63); AST 25 U/L (15-37); Alkaline Phosphatase 61 U/L (46-116); Bilirubin, Direct 0.1 mg/dL (0.0-0.2); Bilirubin, Total 0.7 mg/dL (0.2-1.0); Total Protein 7.2 g/dL (6.4-8.2)
== END 2021-11-28 01:17 | disposition home or self-care (01) ==
LOC: LBO 01:16
PROVIDERS: PCP Nurse Practitioner Family; Visit Provider Radiology Radiation Oncology
DX: C61 Malignant neoplasm of prostate (principal)
CPT/HCPCS: 36415; 80076

== ENCOUNTER → 2022-01-08 08:10 | Outpatient (BNVA) | payer MEDICARE, BC, SELFPAY | PROVIDERS: PCP Nurse Practitioner Family; Referring Provider Nurse Practitioner Family; Visit Provider Psychiatry & Neurology Neurology | DX: Z87.820 Personal history of traumatic brain injury (principal); R42 Dizziness and giddiness; G31.84 Mild cognitive impairment of uncertain or unknown etiology; R51.9 Headache, unspecified | CPT/HCPCS: 99214 ==

== ENCOUNTER 2022-02-09 09:24 | Outpatient (CLI) | payer MEDICARE, BC, SELFPAY ==
[2022-02-09 08:53] LABS: ALT 40 U/L (16-63); AST 20 U/L (15-37); Albumin 3.5 g/dL (3.4-5.0); Alkaline Phosphatase 62 U/L (46-116); Bilirubin, Direct 0.1 mg/dL (0.0-0.2); Bilirubin, Total 0.4 mg/dL (0.2-1.0); Total Protein 6.4 g/dL (6.4-8.2)
== END 2022-02-09 09:25 | disposition home or self-care (01) ==
PROVIDERS: PCP Nurse Practitioner Family; Visit Provider Radiology Radiation Oncology
DX: C61 Malignant neoplasm of prostate (principal)
CPT/HCPCS: 36415; 80076

== ENCOUNTER → 2022-03-04 08:14 | Outpatient (BNVA) | payer MEDICARE, BC, SELFPAY | PROVIDERS: PCP Nurse Practitioner Family; Referring Provider Nurse Practitioner Family; Visit Provider Psychiatry & Neurology Neurology | DX: G31.84 Mild cognitive impairment of uncertain or unknown etiology (principal); Z87.820 Personal history of traumatic brain injury; R51.9 Headache, unspecified | CPT/HCPCS: 99214 ==

== ENCOUNTER 2022-03-27 12:33 | Outpatient (CLI) | payer MEDICARE, BC, SELFPAY ==
[2022-03-27 12:32] LABS: ALT 34 U/L (16-63); AST 22 U/L (15-37); Albumin 3.9 g/dL (3.4-5.0); Alkaline Phosphatase 71 U/L (46-116); Bilirubin, Direct 0.2 mg/dL (0.0-0.2); Bilirubin, Total 0.6 mg/dL (0.2-1.0); Total Protein 6.8 g/dL (6.4-8.2)
[2022-03-28 13:49] LABS: PSA, Ultrasensitive 0.02 ng/mL (<= 6.5)
[2022-04-01 12:13] LABS: Testosterone, Total <7.0 ng/dL (240-950)
== END 2022-03-27 12:34 | disposition home or self-care (01) ==
LOC: LBO 12:33
PROVIDERS: PCP Nurse Practitioner Family; Visit Provider Radiology Radiation Oncology
DX: C61 Malignant neoplasm of prostate (principal)
CPT/HCPCS: 36415; 80053; 80061; 80076; 84153; 84402; 84403; 84410; 84443; 85025

== ENCOUNTER 2022-06-22 02:58 | Outpatient (CLI) | payer MEDICARE, BC, SELFPAY ==
[2022-06-22 14:21] LABS: Absolute Basophil Count 0.03 10^3/uL (0.0-0.2); Absolute Eosinophil Count 0.25 10^3/uL (0.0-0.7); Absolute Lymphocyte Count 0.72 10^3/uL (1.2-3.4); Absolute Monocyte Count 0.44 10^3/uL (0.1-0.8); Absolute Neutrophil Count 2.29 10^3/uL (1.2-6.7); Basophils % 0.8; Eosinophils % 6.7; HCT 37.1 % (40.0-50.0); HGB 13.1 g/dL (13.5-17.5); Lymphocytes % 19.3; MCH 32.7 pg (27.0-33.0); MCHC 35.3 % (32.0-36.0); MCV 93 fL (80-95); MPV 8.8 fL (8.0-11.0); Monocytes % 11.8; Neutrophils % 61.4; Platelet Count 157 10^3/uL (130-400); RBC 4.01 10^6/uL (4.36-5.78); RDW 12.1 % (11.8-14.1); RDW-SD 40.7 fL; WBC 3.73 10^3/uL (4.4-10.8)
[2022-06-22 15:20] LABS: ALT 32 U/L (16-63); AST 19 U/L (15-37); Albumin 3.7 g/dL (3.4-5.0); Alkaline Phosphatase 76 U/L (46-116); Anion Gap 7.9 mmol/L (3-11); BUN 17 mg/dL (7-18); Bilirubin, Total 0.4 mg/dL (0.2-1.0); CO2 29.1 mmol/L (21.0-32.0); CREATININE 0.9 mg/dL (0.70-1.30); Calcium 9.2 mg/dL (8.5-10.1); Chloride 106 mmol/L (98-107); Estimated GFR 89.62 (mL/min/1.73m2); Glucose 108 mg/dL (74-106); Potassium 3.9 mmol/L (3.5-5.1); Sodium 143 mmol/L (136-145); TSH (W/Ref FT4) 3.64 uIU/mL (0.36-3.74); Total Protein 6.7 g/dL (6.4-8.2)
[2022-06-23 19:18] LABS: PSA, Ultrasensitive <0.01 ng/mL (<= 6.5)
[2022-06-25 22:05] LABS: Testosterone, Total <7.0 ng/dL (240-950)
== END 2022-06-22 02:59 | disposition home or self-care (01) ==
LOC: LBO 02:58
PROVIDERS: PCP Nurse Practitioner Family; Visit Provider Radiology Radiation Oncology
DX: C61 Malignant neoplasm of prostate (principal); E03.8 Other specified hypothyroidism; Z79.899 Other long term (current) drug therapy; R73.01 Impaired fasting glucose
CPT/HCPCS: 36415; 80053; 84153; 84403; 84443; 85025

== ENCOUNTER 2022-06-29 03:05 | Outpatient (CLI) | payer MEDICARE, BC, SELFPAY ==
[2022-06-29 08:55] LABS: Calculated LDL 123 mg/dL (<100); Cholesterol 217 mg/dL (<200); HDL Cholesterol 85 mg/dL (40-60); Triglyceride 46 mg/dL (<150)
== END 2022-06-29 03:06 | disposition home or self-care (01) ==
LOC: LBO 03:06
PROVIDERS: PCP Nurse Practitioner Family; Referring Provider Nurse Practitioner Family; Visit Provider Nurse Practitioner Family
DX: E78.5 Hyperlipidemia, unspecified (principal)
CPT/HCPCS: 36415; 80061

== ENCOUNTER → 2022-07-02 08:08 | Outpatient (BNVA) | payer MEDICARE, BC, SELFPAY | PROVIDERS: PCP Nurse Practitioner Family; Referring Provider Nurse Practitioner Family; Visit Provider Psychiatry & Neurology Neurology | DX: G31.84 Mild cognitive impairment of uncertain or unknown etiology (principal); Z87.820 Personal history of traumatic brain injury; G47.00 Insomnia, unspecified; R51.9 Headache, unspecified | CPT/HCPCS: 99213 ==

== ENCOUNTER 2022-07-14 02:28 | Outpatient (CLI) | payer MEDICARE, BC, SELFPAY ==
[2022-07-14 15:57] LABS: Absolute Basophil Count 0.02 10^3/uL (0.0-0.2); Absolute Eosinophil Count 0.22 10^3/uL (0.0-0.7); Absolute Lymphocyte Count 0.81 10^3/uL (1.2-3.4); Absolute Monocyte Count 0.31 10^3/uL (0.1-0.8); Absolute Neutrophil Count 1.63 10^3/uL (1.2-6.7); Basophils % 0.7; Eosinophils % 7.4; HCT 35.7 % (40.0-50.0); HGB 12.9 g/dL (13.5-17.5); Lymphocytes % 27.1; MCH 32.9 pg (27.0-33.0); MCHC 36.1 % (32.0-36.0); MCV 91 fL (80-95); MPV 9.2 fL (8.0-11.0); Monocytes % 10.4; Neutrophils % 54.4; Platelet Count 141 10^3/uL (130-400); RBC 3.92 10^6/uL (4.36-5.78); RDW 11.7 % (11.8-14.1); RDW-SD 38.7 fL; Reticulocyte 1.5 % (0.5-2.4); WBC 2.99 10^3/uL (4.4-10.8)
[2022-07-14 16:37] LABS: Iron 87 ug/dL (65-175); Total Iron Binding Capacity 266 ug/dL (250-450); Transferrin Sat 33 % (20-55)
[2022-07-14 18:24] LABS: Ferritin 195 ng/mL (26-388); Folate 14.5 ng/mL (8.6-20.0); Vitamin B12 444 pg/mL (193-986)
[2022-07-14 18:35] LABS: LDH 216 U/L (85-227)
== END 2022-07-14 02:29 | disposition home or self-care (01) ==
LOC: LBO 02:28
PROVIDERS: PCP Nurse Practitioner Family; Visit Provider Nurse Practitioner Family
DX: D64.9 Anemia, unspecified (principal); E78.5 Hyperlipidemia, unspecified; R73.01 Impaired fasting glucose; E03.8 Other specified hypothyroidism; R41.9 Unspecified symptoms and signs involving cognitive functions and awareness
CPT/HCPCS: 36415; 82607; 82728; 82746; 83540; 83550; 83615; 85025; 85045

== ENCOUNTER 2022-09-16 11:33 | Outpatient (CLI) | payer MEDICARE, BC, SELFPAY ==
[2022-09-16 08:59] LABS: Abs Immature Grans 0.01 10^3/uL (0.0-0.06); Absolute Basophil Count 0.03 10^3/uL (0.0-0.2); Absolute Eosinophil Count 0.19 10^3/uL (0.0-0.7); Absolute Monocyte Count 0.31 10^3/uL (0.1-0.8); Absolute Neutrophil Count 2.26 10^3/uL (1.2-6.7); Basophils % 0.8; Eosinophils % 5.3; HCT 37.3 % (40.0-50.0); HGB 13.1 g/dL (13.5-17.5); Immature Grans % 0.3; Lymphocytes % 22.2; MCH 31.4 pg (27.0-33.0); MCHC 35.1 % (32.0-36.0); MCV 89 fL (80-95); MPV 8.7 fL (8.0-11.0); Monocytes % 8.6; Neutrophils % 62.8; Platelet Count 145 10^3/uL (130-400); RBC 4.17 10^6/uL (4.36-5.78); RDW 11.9 % (11.8-14.1); RDW-SD 38.1 fL
== END 2022-09-16 11:34 | disposition home or self-care (01) ==
LOC: LBO 11:34
PROVIDERS: PCP Nurse Practitioner Family; Referring Provider Nurse Practitioner Family; Visit Provider Nurse Practitioner Family
DX: D64.9 Anemia, unspecified (principal)
CPT/HCPCS: 36415; 85025

== ENCOUNTER 2022-09-24 15:26 | Outpatient (CLI) | payer MEDICARE, BC, SELFPAY ==
[2022-09-24 14:44] LABS: ALT 36 U/L (16-63); AST 21 U/L (15-37); Albumin 3.6 g/dL (3.4-5.0); Alkaline Phosphatase 89 U/L (46-116); Anion Gap 5.7 mmol/L (3-11); BUN 16 mg/dL (7-18); Bilirubin, Total 0.5 mg/dL (0.2-1.0); CO2 28.3 mmol/L (21.0-32.0); CREATININE 0.9 mg/dL (0.70-1.30); Calcium 8.7 mg/dL (8.5-10.1); Chloride 106 mmol/L (98-107); Estimated GFR 89.62 (mL/min/1.73m2); Glucose 114 mg/dL (74-106); Potassium 3.9 mmol/L (3.5-5.1); Sodium 140 mmol/L (136-145); Total Protein 6.7 g/dL (6.4-8.2)
[2022-09-28 10:45] LABS: PSA, Ultrasensitive <0.01 ng/mL (<= 6.5)
[2022-09-29 23:19] LABS: Testosterone, Total <7.0 ng/dL (240-950)
== END 2022-09-24 15:27 | disposition home or self-care (01) ==
LOC: LBO 15:27
PROVIDERS: PCP Nurse Practitioner Family; Visit Provider Nurse Practitioner Family
DX: C61 Malignant neoplasm of prostate (principal)
CPT/HCPCS: 36415; 80053; 84153; 84403

== ENCOUNTER → 2022-12-29 09:01 | Outpatient (BNVA) | payer MEDICARE, BC, SELFPAY | PROVIDERS: PCP Nurse Practitioner Family; Visit Provider Psychiatry & Neurology Neurology | DX: G31.84 Mild cognitive impairment of uncertain or unknown etiology (principal); R51.9 Headache, unspecified; Z87.820 Personal history of traumatic brain injury; G47.00 Insomnia, unspecified | CPT/HCPCS: 99214 ==

== ENCOUNTER → 2023-01-04 03:03 | Outpatient (CLI) | payer MEDICARE, BC, SELFPAY ==
--- NOTE | 2023-01-04 08:45 | DI.RAD_ITS ---
Exam(s) XR SHOULDER LT COMPLETE 2+V EXAM: XR SHOULDER LT COMPLETE 2+V CLINICAL HISTORY: eval L should pain (OA vs. bony lesion),M25.512,PROSTATE CA. TECHNIQUE: 2D digital imaging was performed of the left shoulder. Five images were obtained. AP, G rashey, Y-view and axillary views were obtained. COMPARISON: No exams were available for comparison FINDINGS: BONES: No acute fracture is present. No bony destructive lesion is seen. JOINTS: No dislocation present. There are degenerative changes seen at the acromioclavicular joint. The glenohumeral joint is well maintained. SOFT TISSUE: Normal. IMPRESSION: Degenerative changes seen at the acromioclavicular joint. DATA REPOSITORY: RADIATION DOSE DELIVERED:
== END ==
PROVIDERS: PCP Nurse Practitioner Family; Visit Provider Nurse Practitioner Family
DX: M19.012 Primary osteoarthritis, left shoulder (principal)
CPT/HCPCS: 36415; 80053; 73030; 84443; 85025

== ENCOUNTER 2023-01-04 04:26 | Outpatient (CLI) | payer MEDICARE, BC, SELFPAY ==
[2023-01-04 15:10] LABS: Abs Immature Grans 0.02 10^3/uL (0.0-0.06); Absolute Basophil Count 0.03 10^3/uL (0.0-0.2); Absolute Eosinophil Count 0.24 10^3/uL (0.0-0.7); Absolute Lymphocyte Count 1.04 10^3/uL (1.2-3.4); Basophils % 0.7; Eosinophils % 5.7; HCT 36.1 % (40.0-50.0); HGB 12.9 g/dL (13.5-17.5); Immature Grans % 0.5; Lymphocytes % 24.6; MCH 32.3 pg (27.0-33.0); MCHC 35.7 % (32.0-36.0); MCV 91 fL (80-95); MPV 8.7 fL (8.0-11.0); Monocytes % 9.5; Platelet Count 159 10^3/uL (130-400); RBC 3.99 10^6/uL (4.36-5.78); RDW-SD 39.4 fL; WBC 4.23 10^3/uL (4.4-10.8)
[2023-01-04 15:51] LABS: ALT 35 U/L (16-63); AST 19 U/L (15-37); Albumin 3.7 g/dL (3.4-5.0); Alkaline Phosphatase 99 U/L (46-116); Anion Gap 11.7 mmol/L (3-11); BUN 20 mg/dL (7-18); Bilirubin, Total 0.4 mg/dL (0.2-1.0); CO2 23.3 mmol/L (21.0-32.0); CREATININE 0.9 mg/dL (0.70-1.30); Calcium 9.4 mg/dL (8.5-10.1); Chloride 102 mmol/L (98-107); Estimated GFR 89.62 (mL/min/1.73m2); Glucose 98 mg/dL (74-106); Potassium 3.8 mmol/L (3.5-5.1); Sodium 137 mmol/L (136-145); TSH (W/Ref FT4) 3.72 uIU/mL (0.36-3.74); Total Protein 6.9 g/dL (6.4-8.2)
== END 2023-01-04 04:27 | disposition home or self-care (01) ==
LOC: LBO 04:26
PROVIDERS: PCP Nurse Practitioner Family; Referring Provider Nurse Practitioner Family; Visit Provider Nurse Practitioner Family
DX: R53.83 Other fatigue (principal); E03.9 Hypothyroidism, unspecified
CPT/HCPCS: 36415; 80053; 84443; 85025

== ENCOUNTER 2023-01-05 12:37 | Outpatient (CLI) | payer MEDICARE, BC, SELFPAY ==
[2023-01-07 10:05] LABS: PSA, Ultrasensitive <0.01 ng/mL (<= 6.5)
== END 2023-01-05 12:38 | disposition home or self-care (01) ==
LOC: LBO 12:38
PROVIDERS: PCP Nurse Practitioner Family; Visit Provider Nurse Practitioner Family
DX: C61 Malignant neoplasm of prostate (principal)
CPT/HCPCS: 36415; 84153; 84403

== ENCOUNTER → 2023-03-02 09:17 | Outpatient (BNVA) | payer MEDICARE, BC, SELFPAY | PROVIDERS: PCP Nurse Practitioner Family; Referring Provider Nurse Practitioner Family; Visit Provider Psychiatry & Neurology Neurology | DX: G31.84 Mild cognitive impairment of uncertain or unknown etiology (principal); R51.9 Headache, unspecified | CPT/HCPCS: 99214 ==

== ENCOUNTER → 2023-03-05 09:24 | Outpatient (BNVA) | payer MEDICARE, BC, SELFPAY | PROVIDERS: PCP Nurse Practitioner Family; Referring Provider Nurse Practitioner Family; Visit Provider Student in an Organized Health Care Education/Training Program | DX: M65.331 Trigger finger, right middle finger (principal) | CPT/HCPCS: 99213 ==

== ENCOUNTER 2023-06-14 05:05 | Outpatient (CLI) | payer MEDICARE, BC, SELFPAY ==
[2023-06-15 17:04] LABS: PSA, Ultrasensitive <0.01 ng/mL (<= 6.5)
[2023-06-17 13:28] LABS: Testosterone, Total <7.0 ng/dL (240-950)
== END 2023-06-14 05:06 | disposition home or self-care (01) ==
PROVIDERS: Radiology Radiation Oncology; PCP Nurse Practitioner Family; Visit Provider Nurse Practitioner
DX: C61 Malignant neoplasm of prostate (principal)
CPT/HCPCS: 36415; 84153; 84403

== ENCOUNTER → 2023-06-29 09:06 | Outpatient (BNVA) | payer MEDICARE, BC, SELFPAY | PROVIDERS: PCP Nurse Practitioner Family; Referring Provider Nurse Practitioner Family; Visit Provider Psychiatry & Neurology Neurology | DX: G31.84 Mild cognitive impairment of uncertain or unknown etiology (principal); R42 Dizziness and giddiness; R51.9 Headache, unspecified | CPT/HCPCS: 99213 ==

== ENCOUNTER → 2023-07-05 14:02 | Outpatient (BNVA) | payer MEDICARE, BC, SELFPAY | PROVIDERS: PCP Nurse Practitioner Family; Referring Provider Nurse Practitioner Family; Visit Provider Urology | DX: C61 Malignant neoplasm of prostate (principal); N40.1 Benign prostatic hyperplasia with lower urinary tract symptoms; R35.1 Nocturia | CPT/HCPCS: 51798; 99214 ==

== ENCOUNTER → 2023-09-21 10:10 | Outpatient (BNVA) | payer MEDICARE, BC, SELFPAY | PROVIDERS: PCP Nurse Practitioner Family; Referring Provider Nurse Practitioner Family; Visit Provider Urology | DX: C61 Malignant neoplasm of prostate (principal); R39.15 Urgency of urination | CPT/HCPCS: 51798; 99213 ==

== ENCOUNTER → 2023-09-28 09:53 | Outpatient (BNVA) | payer MEDICARE, BC, SELFPAY | PROVIDERS: PCP Nurse Practitioner Family; Referring Provider Nurse Practitioner Family; Visit Provider Psychiatry & Neurology Neurology | DX: G31.84 Mild cognitive impairment of uncertain or unknown etiology (principal); R51.9 Headache, unspecified; R42 Dizziness and giddiness | CPT/HCPCS: 99214 ==

== ENCOUNTER 2023-12-15 03:27 | Outpatient (CLI) | payer MEDICARE, BC, SELFPAY ==
[2023-12-15 08:44] LABS: ALT 24 U/L (16-63); AST 19 U/L (15-37); Calculated LDL 48 mg/dL (<100); Cholesterol 127 mg/dL (<200); Creatine Kinase 70 U/L (39-308); HDL Cholesterol 73 mg/dL (40-60); Triglyceride 30 mg/dL (<150)
[2023-12-15 08:54] LABS: Hemoglobin A1C 5.9 % (<5.7)
== END 2023-12-15 03:28 | disposition home or self-care (01) ==
LOC: LBO 03:27
PROVIDERS: PCP Nurse Practitioner Family; Visit Provider Nurse Practitioner Family
DX: E78.5 Hyperlipidemia, unspecified (principal); R73.01 Impaired fasting glucose
CPT/HCPCS: 36415; 80061; 82550; 83036; 84450; 84460

== ENCOUNTER 2023-12-27 02:00 | Outpatient (CLI) | payer MEDICARE, BC, SELFPAY ==
[2023-12-30 12:01] LABS: PSA, Ultrasensitive 0.03 ng/mL (<= 6.5)
[2023-12-31 15:04] LABS: Testosterone, Total 100 ng/dL (240-950)
== END 2023-12-27 02:01 | disposition home or self-care (01) ==
PROVIDERS: PCP Nurse Practitioner Family; Visit Provider Nurse Practitioner
DX: C61 Malignant neoplasm of prostate (principal)
CPT/HCPCS: 36415; 84153; 84403

== ENCOUNTER → 2023-12-28 09:38 | Outpatient (BNVA) | payer MEDICARE, BC, SELFPAY | PROVIDERS: PCP Nurse Practitioner Family; Visit Provider Psychiatry & Neurology Neurology | DX: G31.84 Mild cognitive impairment of uncertain or unknown etiology (principal); R51.9 Headache, unspecified; G47.00 Insomnia, unspecified | CPT/HCPCS: 99215 ==

== ENCOUNTER → 2024-01-13 13:49 | Outpatient (BNVA) | payer MEDICARE, BC, SELFPAY | PROVIDERS: PCP Nurse Practitioner Family; Visit Provider Urology | DX: C61 Malignant neoplasm of prostate (principal); N40.1 Benign prostatic hyperplasia with lower urinary tract symptoms; R35.0 Frequency of micturition; R39.15 Urgency of urination | CPT/HCPCS: 99214 ==

== ENCOUNTER → 2024-04-07 08:21 | Outpatient (BNVA) | payer MEDICARE, BC, SELFPAY | PROVIDERS: PCP Nurse Practitioner Family; Referring Provider Nurse Practitioner Family; Visit Provider Urology | DX: C61 Malignant neoplasm of prostate (principal); R39.9 Unspecified symptoms and signs involving the genitourinary system | CPT/HCPCS: 51798; 99213 ==

== ENCOUNTER → 2024-04-25 08:46 | Outpatient (BNVA) | payer MEDICARE, BC, SELFPAY | PROVIDERS: PCP Nurse Practitioner Family; Referring Provider Nurse Practitioner Family; Visit Provider Psychiatry & Neurology Neurology | DX: G31.84 Mild cognitive impairment of uncertain or unknown etiology (principal); R51.9 Headache, unspecified; G47.00 Insomnia, unspecified | CPT/HCPCS: 99214 ==

== ENCOUNTER 2024-06-21 03:42 | Outpatient (CLI) | payer MEDICARE, BC, SELFPAY ==
[2024-06-23 11:31] LABS: PSA, Ultrasensitive 0.08 ng/mL (<= 6.5)
[2024-06-27 14:10] LABS: Testosterone, Total 149 ng/dL (240-950)
== END 2024-06-21 03:43 | disposition home or self-care (01) ==
LOC: LBO 03:42
PROVIDERS: PCP Nurse Practitioner Family; Visit Provider Physician Assistant
DX: C61 Malignant neoplasm of prostate (principal)
CPT/HCPCS: 36415; 84153; 84403

== ENCOUNTER → 2024-09-29 08:24 | Outpatient (BNVA) | payer MEDICARE, BC, SELFPAY | PROVIDERS: PCP Nurse Practitioner Family; Visit Provider Urology | DX: C61 Malignant neoplasm of prostate (principal) | CPT/HCPCS: 99214; 36415; 84403; 84153 ==

== ENCOUNTER 2024-09-29 10:03 | Outpatient (CLI) | payer MEDICARE, BC, SELFPAY ==
[2024-09-29 18:57] LABS: PSA, Diagnostic 0.1 ng/mL (<=6.5)
[2024-10-05 10:27] LABS: Testosterone, Total 164 ng/dL (240-950)
== END 2024-09-29 10:04 | disposition home or self-care (01) ==
LOC: LBO 10:04
PROVIDERS: PCP Nurse Practitioner Family; Visit Provider Urology
DX: C61 Malignant neoplasm of prostate (principal)
CPT/HCPCS: 36415; 84403; 84153

== ENCOUNTER → 2024-10-24 08:38 | Outpatient (BNVA) | payer MEDICARE, BC, SELFPAY | PROVIDERS: PCP Nurse Practitioner Family; Visit Provider Psychiatry & Neurology Neurology | DX: G31.84 Mild cognitive impairment of uncertain or unknown etiology (principal); R51.9 Headache, unspecified; G47.00 Insomnia, unspecified; Z87.820 Personal history of traumatic brain injury | CPT/HCPCS: 99213 ==

== ENCOUNTER 2024-12-27 15:22 | Outpatient (CLI) | payer MEDICARE, BC, SELFPAY ==
[2024-12-27 18:15] LABS: PSA, Diagnostic 0.2 ng/mL (<=6.5)
== END 2024-12-27 15:23 | disposition home or self-care (01) ==
LOC: LBO 15:22
PROVIDERS: PCP Nurse Practitioner Family; Visit Provider Urology
DX: C61 Malignant neoplasm of prostate (principal)
CPT/HCPCS: 36415; 84403; 84153

== ENCOUNTER → 2025-01-05 08:23 | Outpatient (BNVA) | payer MEDICARE, BC, SELFPAY | PROVIDERS: PCP Nurse Practitioner Family; Referring Provider Nurse Practitioner Family; Visit Provider Urology | DX: C61 Malignant neoplasm of prostate (principal); R35.0 Frequency of micturition; R39.15 Urgency of urination; R35.1 Nocturia | CPT/HCPCS: 99214 ==

== ENCOUNTER 2025-02-25 10:05 | Emergency (ER) | payer MEDICARE, BC, SELFPAY ==
[2025-02-25] VITALS (25 sets, daily range): BP systolic 142–177; BP diastolic 58–80; PULSE 60–75; RESP 8–26; TEMP 36.6; O2SAT 95–100
--- NOTE | 2025-02-25 10:15 | DI.CT_ITS ---
Exam(s) CT BRAIN NECK CTA EXAM: CT BRAIN NECK CTA CLINICAL HISTORY: thunderclap headache. TECHNIQUE: Imaging Protocol: Axial CT angiography was performed with multi- slice acquisition and multi-planar and/or 3D reconstructions. CONTRAST MATERIAL: Intravenous: Omnipaque 350 contrast volume:70 mL COMPARISON: CT CT BRAIN NECK CTA from 07/26/[address] BRAIN NECK CTA from 04/06/2021 FINDINGS: CT Head W/O and W: Ventricles and Extra axial spaces: Normal in size and morphology for the patient's age. Hemorrhage: None. Cerebral parenchyma: There is no evidence of an acute territorial infarct or mass effect. Midline shift: None. Brainstem/Cerebellum: Normal. Calvarium: Normal. Visualized Paranasal sinuses/Mastoids: Clear. Soft Tissues: Unremarkable. Enhancement: Unremarkable. CTA Neck W: Common Carotid: Atherosclerotic calcification is seen in the carotid bulbs bilaterally but no significant stenosis is present. Right: No dissection, occlusion or significant stenosis. Left: No dissection, occlusion or significant stenosis. External Carotid: Right: No occlusion or significant stenosis. Left: No occlusion or significant stenosis. Internal Carotid: Right: No dissection, occlusion or significant stenosis. Left: No dissection, occlusion or significant stenosis. Vertebral Artery: Right: No dissection, occlusion or significant stenosis. Left: No dissection, occlusion or significant stenosis. Lung Apices: Normal. Bones: Within normal limits for the patient's age. There is a stable alignment of the type 2 dens. Soft Tissues: Normal. Thyroid gland: Unremarkable. CTA Brain W: Internal Carotid Arteries: Atherosclerotic calcification is seen in the cavernous portions of the internal carotid arteries but no significant stenosis is present. There is no aneurysm, occlusion or significant stenosis present. Anterior Cerebral Arteries: Right: No aneurysm, occlusion or significant stenosis. Left: No aneurysm, occlusion or significant stenosis. Middle Cerebral Arteries: Right: No aneurysm, occlusion or significant stenosis. Left: No aneurysm, occlusion or significant stenosis. Posterior Cerebral Arteries: The right posterior cerebral artery arises from the right posterior communicating artery. This is a normal variant. Right: No aneurysm, occlusion or significant stenosis. Left: No aneurysm, occlusion or significant stenosis. Vertebral Arteries: Right: No aneurysm, occlusion or significant stenosis. Left: No aneurysm, occlusion or significant stenosis. The left vertebral artery is absent beginning at C1. It is reconstituted at the PICA. This is unchanged compared to the prior examination. Basilar Artery: No aneurysm, occlusion or significant stenosis. IMPRESSION: 1. No large vessel occlusion or significant stenosis on the CT angiography of the head. 2. No acute intracranial process. 3. No occlusion or significant stenosis on the CT angiography of the neck. RADIATION DOSE DELIVERED: 2,399.8mGy.cm Total DLP DATA REPOSITORY: All CT scans at this facility are submitted to the National Radiology Data Registry (NRDR) Dose Index Registry (DIR) with the [employer] (ACR). RADIATION OPTIMIZATION: All CT scans at this facility use at least one of these dose optimization techniques: automated exposure control; mA and/or kV adjustment per patient size (includes targeted exams where dose is matched to clinical indication); or iterative reconstruction.
[2025-02-25 10:31] LABS: Abs Immature Grans 0.02 10^3/uL (0.0-0.06); HCT 38.6 % (40.0-50.0); HGB 13.4 g/dL (13.5-17.5); Immature Grans % 0.4 %; MCH 32.0 pg (27.0-33.0); MCHC 34.7 % (32.0-36.0); MCV 92 fL (80-95); MPV 8.8 fL (8.0-11.0); Platelet Count 155 10^3/uL (130-400); RBC 4.19 10^6/uL (4.36-5.78); RDW 12.4 % (11.8-14.1); RDW-SD 40.8 fL; WBC 4.53 10^3/uL (4.4-10.8)
[2025-02-25] MEDS: Normal Saline - Diluent 50 ML VIAL IJ (10:32)
[2025-02-25] MEDS: Omnipaque 350 MG/ML 100 ML BTL IJ (10:32)
[2025-02-25] MEDS: Normal Saline Flush 10 ML SYR IVP (10:33)
--- NOTE | 2025-02-25 10:36 | W.ED.GENAD ---
Discharge Plan Disposition Patient Disposition: Home Condition: Good Discharge Details Clinical Impression: Headache, Shingles outbreak Primary Care Provider: Sari Ferraro ED Provider: Khushbu Fisher Home Meds and New Rx's Prescriptions: Continued aspirin 325 mg tablet 325 mg PO DAILY Rx Instructions: note dated 03/06/19 pantoprazole 40 mg tablet,delayed release (DR/EC) 40 mg PO .QOD Qty: 45 3RF mirtazapine [Remeron] 15 mg tablet 7.5 mg PO QHS Qty: 10 0RF Airborne (ascorbate sodium) 333-1.7 mg tablet,chewable 3 tab PO nxkgltrm-ampw-aeesa-oreg-capry 100 mg-150 mg- 50 mg-150 mg capsule 1 cap PO magnesium oxide 400 mg magnesium capsule 400 mg PO DAILY tadalafil [Cialis] 5 mg tablet 5 mg PO DAILY PRN (Reason: urination) Qty: 90 4RF valacyclovir 1 gram tablet 1,000 mg PO Q8H Qty: 30 0RF prednisone 50 mg tablet 50 mg PO DAILY Qty: 10 0RF gabapentin 400 mg capsule 400 mg PO TID Qty: 90 3RF zolpidem 5 mg tablet 5 mg PO QHS PRN (Reason: sleep) Qty: 60 0RF Rx Instructions: May repeat once during night. atorvastatin [Lipitor] 20 mg tablet 20 mg PO DAILY Qty: 90 3RF melatonin 3 mg capsule 6 mg PO HS PRN Rx Instructions: per note dated 10/10/65 [facility] [place] cc Discharge Instructions Additional Instructions: Please return first thing in the AM (8 am) to the emergency department for MRI. I recommend that you bring some activities to do, as you will be squeezed into the schedule during the day and it may be sometime. Your headache is most likely due to the occipital neuralgia/postherpetic neuralgia from your shingles infection, but we are recommending that you have an MRI performed to rule out an intracranial cause such as stroke. I recommend that you stay with someone else throughout the day until you have your MRI performed. Continue to take your medications as prescribed. Return to emergency care if you develop any new headaches, vision changes, confusion, weakness, chest pain, difficulty breathing, or if you are very worried may need to be rechecked again immediately. Stand Alone Forms: Portal Information HPI General Date/Time Provider Initiated Documentation: 02/25/25 10:17. HPI Narrative: Hai is a 74-year-old male with history of mild cognitive impairment, anemia, HLD, prostate cancer, and EtOH use (now in remission) who presents to the emergency department today for evaluation of headache. He reports he was driving his truck on his driveway at 10 AM when all of a sudden felt a sensation of warmth and pain along the right side of his head from top of his neck towards the front of his head. This was accompanied by a 2- 3-minute feeling of generalized weakness, dizziness, and being unable to get up. This resolved spontaneously. He now has itchiness to his scalp. Denies recent fever/chills, illness such as congestion/sore throat/cough, chest pain, shortness of breath, nausea/vomiting, abdominal pain, change in p.o. intake, change in bowel or bladder function, extremity weakness/numbness. He was recently diagnosed with shingles on 02/09/2025, treated with gabapentin, valacyclovir, and prednisone. He was also noted to have chronic head pressure and shooting pains in his head attributed to past neck injury. No previous history of CVA, cardiac disease. Related Data Home Medications Medication Instructions Recorded Confirmed aspirin 325 mg tablet 325 mg PO DAILY Vertebral artery 06/24/20 02/25/25 occlusion melatonin 3 mg capsule 6 mg PO HS PRN 10/13/21 02/25/25 magnesium oxide 400 mg PO DAILY 03/04/22 02/25/25 mv-min-vit C-ascorbate 3 tab PO 03/04/22 02/16/25 rzs-rsv-bjz-herb 333 mg-1.7 mg chewable tablet (Airborne (ascorbate sodium)) turmeric 100 mg-logan 150 1 cap PO 03/04/22 02/16/25 mg-olive 50 mg-oreg 150 mg-capryl capsule tadalafil 5 mg tablet (Cialis) 5 mg PO DAILY PRN urination #90 04/07/24 02/25/25 tabs mirtazapine 15 mg tablet (Remeron) 7.5 mg (1/2 x 15 mg) PO QHS 02/06/25 02/25/25 insomnia #10 tabs pantoprazole 40 mg tablet,delayed 40 mg PO .QOD #45 tabs 02/06/25 02/25/25 release gabapentin 400 mg capsule 400 mg PO TID #90 caps 02/09/25 02/25/25 prednisone 50 mg tablet 50 mg PO DAILY #10 tabs 02/09/25 02/25/25 valacyclovir 1 gram tablet 1,000 mg PO Q8H #30 tabs 02/09/25 02/25/25 atorvastatin 20 mg tablet (Lipitor) 20 mg PO DAILY #90 tabs 02/16/25 02/25/25 zolpidem 5 mg tablet 5 mg PO QHS PRN sleep #60 tabs 02/16/25 02/25/25 Previous Rx's Medication Instructions Recorded tadalafil 5 mg tablet (Cialis) 5 mg PO DAILY PRN urination #90 04/07/24 tabs mirtazapine 15 mg tablet (Remeron) 7.5 mg (1/2 x 15 mg) PO QHS 02/06/25 insomnia #10 tabs pantoprazole 40 mg tablet,delayed 40 mg PO .QOD #45 tabs 02/06/25 release gabapentin 400 mg capsule 400 mg PO TID #90 caps 02/09/25 prednisone 50 mg tablet 50 mg PO DAILY #10 tabs 02/09/25 valacyclovir 1 gram tablet 1,000 mg PO Q8H #30 tabs 02/09/25 atorvastatin 20 mg tablet (Lipitor) 20 mg PO DAILY #90 tabs 02/16/25 zolpidem 5 mg tablet 5 mg PO QHS PRN sleep #60 tabs 02/16/25 Allergies Allergy/AdvReac Type Severity Reaction Status Date / Time No Known Allergies Allergy Verified 02/25/25 10:14 General Stated Complaint: CVA/TIA VONNIE: 3 Exam Const General: cooperative, healthy appearing, comfortable, no acute distress, well developed and well groomed Nutritional Appearance: average body habitus and well nourished Orientation: alert and oriented x3 HENMT Head: normocephalic, atraumatic, no occipital foramen tenderness, no palpable skull fracture and no raccoon eyes Ears: hearing grossly normal bilaterally Resp Effort & Inspection: normal respiratory effort and able to speak in complete sentences Auscultation: clear to auscultation bilaterally Cardio Rate: regular rate Rhythm: regular rhythm GI Inspection: normal to inspection Palpation: soft, not firm, no guarding and nontender Skin General skin exam: excoriation (Right occiput/parietal area, patient actively scratching) Neuro General: patient alert, patient oriented x3, gait normal, tone normal, moves all extremities, no meningeal signs, no focal motor deficits and CN's II-XI intact bilaterally Cranial Nerves: CN's II-XI intact bilaterally, PERRL, EOM intact bilaterally, no nystagmus, facial strength normal, tongue midline and able to elevate shoulders bilaterally Cognition: normal cognition Speech: speech normal Gait: normal gait Motor: muscle tone normal throughout and strength 5/5 throughout Sensory Exam: no sensory deficits noted Coordination: gzlsax-kt-lvkl test normal, djjp-ma-eklm test normal, Romberg test normal, tandem gait normal and rapid alternating movement UE normal Extrem General: normal to inspection, no pedal edema and normal gait Course Vital Signs Vital signs: Vital Signs Temperature 36.6 C 02/25/25 10:09 Pulse 75 02/25/25 10:09 Respiratory Rate 16 02/25/25 10:09 Blood Pressure 160/62 H 02/25/25 10:09 Pulse Oximetry 100 02/25/25 10:09 Temperature 36.6 C 02/25/25 10:09 Temperature Source Oral 02/25/25 10:09 Pulse 75 02/25/25 10:09 Respiratory Rate 16 02/25/25 10:09 Blood Pressure 160/62 H 02/25/25 10:09 Pulse Oximetry 100 02/25/25 10:09 Lab/Test Results Lab/Test Results: Laboratory Tests Range/Units 02/25/25 10:18 WBC (4.4-10.8) 10^3/uL 4.53 RBC (4.36-5.78) 10^6/uL 4.19 L Hgb (13.5-17.5) g/dL 13.4 L Hct (40.0-50.0) % 38.6 L MCV (80-95) fL 92 MCH (27.0-33.0) pg 32.0 MCHC (32.0-36.0) % 34.7 RDW (11.8-14.1) % 12.4 Plt Count (130-400) 10^3/uL 155 MPV (8.0-11.0) fL 8.8 Immature Gran % % 0.4 Neutrophils % % 63.5 Lymphocytes % % 23.6 Monocytes % % 8.8 Eosinophils % % 3.3 Basophils % % 0.4 Nucleated RBC % (0.0-0.3) % 0.0 Absolute Neutrophils (1.2-6.7) 10^3/uL 2.87 Absolute Lymphocytes (1.2-3.4) 10^3/uL 1.07 L Absolute Monocytes (0.1-0.8) 10^3/uL 0.40 Absolute Eosinophils (0.0-0.7) 10^3/uL 0.15 Absolute Basophils (0.0-0.2) 10^3/uL 0.02 VBG Lactate (<or=2.0) mmol/L 1.4 Medical Decision Making Hai is a 74 year old MALE who presents to the emergency department for evaluation of sudden onset of headache with a feeling of warmth starting at 1000 today accompanied by not feeling right x 2-3 minutes in which she felt fatigued and weak all over with some dizziness. This resolved spontaneously. He currently reports he is feeling well, however has significant itching to his scalp where he had shingles rash recently. Denies recent fever/chills, vision changes, recent sickness such as congestion/sore throat/cough, chest pain, shortness of breath, nausea/vomiting, abdominal pain, change in bowel or bladder function, extremity weakness/numbness, gait disturbance. No history of head injury prior to onset. Physical exam remarkable for mild erythema to right parietal/occipital area, patient has been actively scratching area during exam. PERRL, EOM's intact. Cranial nerves II through XII intact as tested. Normal finger to finger, finger-nose, Romberg, tandem gait, gait, rapid alternating movements, heel plunkett. Full painless range of motion to neck, no C-spine or occipital tenderness with palpation. 5/5 muscle strength upper and lower extremities, sensation grossly intact. D/dx includes but is not limited to: Postherpetic neuralgia, intracranial hemorrhage, cervicogenic headache, occipital nerve irritation, tension headache I independently interpreted the following tests: CBC, CMP, lactate, coags, serial troponins all unremarkable. CTA head and neck performed, no acute abnormalities noted. While in the emergency dept patient received ice pack for itchy area on scalp with good improvement of symptoms. Teleneurology consult performed, discussed case with Dr. Kan. Episode today most consistent with occipital neuralgia/postherpetic neuralgia, though outpatient MRI recommended to exclude any acute or structural intracranial process. Patient recommended to continue daily medications and return to ED if any new/recurrent deficits. Reviewed discharge instructions with patient and his daughter, including recommendation for return to ED tomorrow for MRI (as tomorrow is Wednesday), symptomatic management, importance of follow up with PCP, and red flags indicating need for return to emergency care. Pt voices agreement with plan of care Imaging Data Radiologic Study: Radiologist's impression: Exam(s) CT BRAIN NECK CTA EXAM: CT BRAIN NECK CTA CLINICAL HISTORY: thunderclap headache. TECHNIQUE: Imaging Protocol: Axial CT angiography was performed with multi-slice acquisition and multi-planar and/or 3D reconstructions. CONTRAST MATERIAL: Intravenous: Omnipaque 350 contrast volume:70 mL COMPARISON: CT CT BRAIN NECK CTA from 07/26/[address] BRAIN NECK CTA from 04/06/2021 FINDINGS: CT Head W/O and W: Ventricles and Extra axial spaces: Normal in size and morphology for the patient's age. Hemorrhage: None. Cerebral parenchyma: There is no evidence of an acute territorial infarct or mass effect. Midline shift: None. Brainstem/Cerebellum: Normal. Calvarium: Normal. Visualized Paranasal sinuses/Mastoids: Clear. Soft Tissues: Unremarkable. Enhancement: Unremarkable. CTA Neck W: Common Carotid: Atherosclerotic calcification is seen in the carotid bulbs bilaterally but no significant stenosis is present. Right: No dissection, occlusion or significant stenosis. Left: No dissection, occlusion or significant stenosis. External Carotid: Right: No occlusion or significant stenosis. Left: No occlusion or significant stenosis. Internal Carotid: Right: No dissection, occlusion or significant stenosis. Left: No dissection, occlusion or significant stenosis. Vertebral Artery: Right: No dissection, occlusion or significant stenosis. Left: No dissection, occlusion or significant stenosis. Lung Apices: Normal. Bones: Within normal limits for the patient's age. There is a stable alignment of the type 2 dens. Soft Tissues: Normal. Thyroid gland: Unremarkable. CTA Brain W: Internal Carotid Arteries: Atherosclerotic calcification is seen in the cavernous portions of the internal carotid arteries but no significant stenosis is present. There is no aneurysm, occlusion or significant stenosis present. Anterior Cerebral Arteries: Right: No aneurysm, occlusion or significant stenosis. Left: No aneurysm, occlusion or significant stenosis. Middle Cerebral Arteries: Right: No aneurysm, occlusion or significant stenosis. Left: No aneurysm, occlusion or significant stenosis. Posterior Cerebral Arteries: The right posterior cerebral artery arises from the right posterior communicating artery. This is a normal variant. Right: No aneurysm, occlusion or significant stenosis. Left: No aneurysm, occlusion or significant stenosis. Vertebral Arteries: Right: No aneurysm, occlusion or significant stenosis. Left: No aneurysm, occlusion or significant stenosis. The left vertebral artery is absent beginning at C1. It is reconstituted at the PICA. This is unchanged compared to the prior examination. Basilar Artery: No aneurysm, occlusion or significant stenosis. IMPRESSION: 1. No large vessel occlusion or significant stenosis on the CT angiography of the head. 2. No acute intracranial process. 3. No occlusion or significant stenosis on the CT angiography of the neck. Quality:SDOH Health Related Social Needs: Health related social needs details N/A PFSH All Active Problems (Updated 02/25/25 @ 12:45 by Khushbu Max) Headache (Acute) Shingles outbreak (Acute) Sleep disturbances (Acute) Nevus (Acute) Sensitive skin (Acute) Depression (Chronic) Anxiety (Chronic) Infected sebaceous cyst of skin (Acute) Low serum testosterone level in male (Acute) Insomnia (Acute) Hematochezia (Acute) Noted on 05/2023 for [facility] [place] oncology visit–1 spoke to patient he denies symptoms. 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) Osteoarthritis (Chronic 04/21/13) Seen on L foot x-ray, likely other locations Seborrheic dermatitis, unspecified (Chronic 07/09/11) Mustache Medical History (Updated 02/25/25 @ 12:45 by Khushbu Max) Benign prostatic hyperplasia Elevated PSA Diverticulosis of colon without diverticulitis (04/21/13) Seen on 2005 colonoscopy Right shoulder pain (09/24/16) Closed fracture of thoracic vertebral body (05/02/18) T2, T3 and T5 endplate fractures Dens fracture (05/02/18) Surgical History Colonoscopy - IV Sedation (~2005) Family History Father Alcohol abuse Personal history of malignant neoplasm thoat Mother Breast cancer Daughter No problems noted. Son No problems noted. 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 Pets and animals: Yes Pets and animals: cat(s) Sexually active: No Do you think of yourself as: straight/heterosexual Current gender identity: male What is your relationship status?: How often do you talk on the phone with friends or family?: three or more times per week How often do you get together with friends or relatives?: three or more times per week How often do you attend jehovah's witness or gnosticist services?: decline to answer Do you belong to any clubs or organized social groups?: yes Panel score (0-1 are the most socially isolated patients): 2 What type of physical activity do you participate in: weight lifting and running Duration: 15-30 minutes/day Frequency: 3-4 times per week Rhoda/Worship: [employer] Special rhoda needs: No Seatbelt use: always Helmet use: No (No Reason) Drive intox or ride w/intox cpr ambulance driver: No Do you feel safe at home: Yes Do you feel safe in your relationship?: Yes
[2025-02-25 10:46] LABS: INR 1.0 (0.9-1.1); PTT Activated 22.1 sec (20.6-30.2); Prothrombin Time 9.8 sec (9.1-11.1)
[2025-02-25 10:55] LABS: ALT 28 U/L (16-63); AST 15 U/L (15-37); Albumin 3.3 g/dL (3.4-5.0); Alkaline Phosphatase 68 U/L (46-116); Anion Gap 6.1 mmol/L (3-11); BUN 19 mg/dL (7-18); Bilirubin, Total 0.6 mg/dL (0.2-1.0); CO2 29.9 mmol/L (21.0-32.0); Calcium 9.0 mg/dL (8.5-10.1); Chloride 101 mmol/L (98-107); Glucose 145 mg/dL (74-106); Potassium 4.3 mmol/L (3.5-5.1); Sodium 137 mmol/L (136-145); Total Protein 6.5 g/dL (6.4-8.2); Troponin I 5 ng/L (<or=76)
[2025-02-25 11:44] LABS: Troponin I 4 ng/L (<or=76)
== END 2025-02-25 13:17 | disposition home or self-care (01) ==
PROVIDERS: General Practice; Emergency Provider Nurse Practitioner Family; PCP Nurse Practitioner Family
DX: R51.9 Headache, unspecified (principal); B02.9 Zoster without complications
CPT/HCPCS: 99283 ×2; 36415; 36416; 82962; 70496; 70498; 80053; 83605; 84484; 85025; 85610; 85730; J3490

== ENCOUNTER 2025-02-26 07:56 | Emergency (ER) | payer MEDICARE, BC, SELFPAY ==
[2025-02-26 07:59] VITALS: BP 123/57; PULSE 80; RESP 16; O2SAT 98
--- NOTE | 2025-02-26 08:00 | DI.MRI_ITS ---
Exam(s) MR BRAIN WO EXAM: MR BRAIN WO CLINICAL HISTORY: headache TECHNIQUE: Multiplanar multisequence MRI of the brain was performed. COMPARISON: MR MR BRAIN WO/W from 04/07/[address] BRAIN NECK CTA from 02/25/2025 CTA 02/26/2025 FINDINGS: CEREBRAL PARENCHYMA: There is no evidence of intracranial hemorrhage, mass effect, or shift of midline structures. There are no extra-axial fluid collections. Ventricles are not enlarged or shifted. There is no significant focal signal abnormality in the cerebellar hemispheres nor within the vidhi, midbrain, and thalami. There is no abnormal signal abnormality in the periventricular white matter. There is no significant focal signal abnormality evident on diffusion imaging to suggest acute ischemic event. PITUITARY GLAND: No mass nor parasellar abnormality. No obvious abnormality in the cavernous sinuses. FLOW VOIDS: The expected flow void are noted. No evidence of obvious aneurysm nor obvious vascular malformation. PARANASAL SINUSES: The visualized paranasal sinuses appear unremarkable. No obvious finding ORBITS: No obvious findings. IMPRESSION: No significant intracranial findings on this noninfused MRI scan of the brain. DATA REPOSITORY:
--- NOTE | 2025-02-26 08:09 | W.ED.GENAD ---
Discharge Plan Disposition Patient Disposition: Home Condition: Stable Discharge Details Clinical Impression: Postherpetic neuralgia Primary Care Provider: Sari Ferraro ED Provider: Vikash Mcconnell Home Meds and New Rx's Prescriptions: Continued aspirin 325 mg tablet 325 mg PO DAILY Rx Instructions: note dated 03/06/19 pantoprazole 40 mg tablet,delayed release (DR/EC) 40 mg PO .QOD Qty: 45 3RF mirtazapine [Remeron] 15 mg tablet 7.5 mg PO QHS Qty: 10 0RF Airborne (ascorbate sodium) 333-1.7 mg tablet,chewable 3 tab PO DAILY zsjwimkp-sdqo-gicrg-oreg-capry 100 mg-150 mg- 50 mg-150 mg capsule 1 cap PO DAILY magnesium oxide 400 mg magnesium capsule 400 mg PO DAILY tadalafil [Cialis] 5 mg tablet 5 mg PO DAILY PRN (Reason: urination) Qty: 90 4RF gabapentin 400 mg capsule 400 mg PO TID Qty: 90 3RF zolpidem 5 mg tablet 5 mg PO QHS PRN (Reason: sleep) Qty: 60 0RF Rx Instructions: May repeat once during night. atorvastatin [Lipitor] 20 mg tablet 20 mg PO DAILY Qty: 90 3RF melatonin 3 mg capsule 6 mg PO HS PRN Rx Instructions: per note dated 10/10/65 [facility] cc Discharge Instructions Instructions: Shingles Additional Instructions: You were seen in the emergency department for your return visit for MRI, your brain scans are normal, the inflammatory markers that can indicate vascular inflammation are negative, you likely are experiencing post herpetic neuralgia from the shingles flare that was treated. Please take 1000 mg of Tylenol every 8 hours, take 400 mg of ibuprofen every 6 hours in a staggering fashion, continue your gabapentin, return for any visual changes, further skin changes or any other emergent concerns. Stand Alone Forms: Portal Information Referrals: Sari Ferraro APRN [Primary Care Provider, Family Practice] Discharge Data Discharge Date/Time-TO BE ENTERED AT DEPARTURE: 02/26/25 10:22 HPI General Date/Time Provider Initiated Documentation: 02/26/25 08:09. HPI Narrative: 74 year-old male presents to ED today by POV/ambulating with a chief complaint of return from visit yesterday after headache with tele-neurology consult recommending MRI today, endorsing some episodes of some R parietal scalp pain with recent shingles to this area that has resolved. Quality described as tenderness to light touch, searing pain to the right parietal scalp, no radiation to facial droop, neck stiffness, fever, visual changes, numbness tingling or weakness. Severity is described as severe. Palliating factors include completed treatment for shingles in recent past. Provoking factors include light touch. Patient not anticoagulated. Related Data Home Medications Medication Instructions Recorded Confirmed aspirin 325 mg tablet 325 mg PO DAILY Vertebral artery 06/24/20 02/26/25 occlusion melatonin 3 mg capsule 6 mg PO HS PRN 10/13/21 02/26/25 magnesium oxide 400 mg PO DAILY 03/04/22 02/26/25 mv-min-vit C-ascorbate 3 tab PO DAILY 03/04/22 02/26/25 uxv-boy-yge-herb 333 mg-1.7 mg chewable tablet (Airborne (ascorbate sodium)) turmeric 100 mg-logan 150 1 cap PO DAILY 03/04/22 02/26/25 mg-olive 50 mg-oreg 150 mg-capryl capsule tadalafil 5 mg tablet (Cialis) 5 mg PO DAILY PRN urination #90 04/07/24 02/26/25 tabs mirtazapine 15 mg tablet (Remeron) 7.5 mg (1/2 x 15 mg) PO QHS 02/06/25 02/26/25 insomnia #10 tabs pantoprazole 40 mg tablet,delayed 40 mg PO .QOD #45 tabs 02/06/25 02/26/25 release gabapentin 400 mg capsule 400 mg PO TID #90 caps 02/09/25 02/26/25 atorvastatin 20 mg tablet (Lipitor) 20 mg PO DAILY #90 tabs 02/16/25 02/26/25 zolpidem 5 mg tablet 5 mg PO QHS PRN sleep #60 tabs 02/16/25 02/26/25 Previous Rx's Medication Instructions Recorded tadalafil 5 mg tablet (Cialis) 5 mg PO DAILY PRN urination #90 04/07/24 tabs mirtazapine 15 mg tablet (Remeron) 7.5 mg (1/2 x 15 mg) PO QHS 02/06/25 insomnia #10 tabs pantoprazole 40 mg tablet,delayed 40 mg PO .QOD #45 tabs 02/06/25 release gabapentin 400 mg capsule 400 mg PO TID #90 caps 02/09/25 atorvastatin 20 mg tablet (Lipitor) 20 mg PO DAILY #90 tabs 02/16/25 zolpidem 5 mg tablet 5 mg PO QHS PRN sleep #60 tabs 02/16/25 Allergies Allergy/AdvReac Type Severity Reaction Status Date / Time No Known Allergies Allergy Verified 02/26/25 08:03 General Stated Complaint: Headache VONNIE: 3 Review of Systems All systems reviewed & are unremarkable except as noted in HPI and below Exam Narrative Exam Narrative: GENERAL APPEARANCE: Well-nourished, non-toxic, awake and alert, atraumatic, no acute distress. SKIN: Warm, pink, dry, intact, tenderness to light touch in the right parietal scalp HEAD: Normocephalic, atraumatic, normal hair distribution for gender/age. EYES: Normal conjunctiva, no exudates on lids/lashes. ENT: Nares patent, no circumoral cyanosis, no facial swelling NECK: Supple, trachea midline, painless cervical ROM. LUNGS/CHEST: Lungs CTA bilaterally, non-labored respirations, normal A/P diameter, symmetrical expansion, no chest wall deformity HEART (CV/PV): Regular rate and rhythm without murmur, no peripheral edema, no JVD. ABDOMEN: Soft, non-distended, no guarding. MSK: Normal ROM, no swelling/deformity to bilateral UEs or LEs, moving all extremities without weakness, no cyanosis, spine midline without tenderness, normal curvature. NEURO: Mental Status AAOx4 - alert to person, place, time, events No facial droop, no forehead involvement, no dysmetria with cerebellar testing Motor: No focal weakness - strength 5/5 in bilateral UEs and LEs, proximal and distal, symmetric. Sensory: sensation intact to light touch globally. Gait normal: patient ambulated without ataxia into ED room. PSYCH: euthymic, cooperative, pleasant, appropriate speech Course Vital Signs Vital signs: Vital Signs Pulse 80 02/26/25 07:59 Respiratory Rate 16 02/26/25 07:59 Blood Pressure 123/57 L 02/26/25 07:59 Pulse Oximetry 98 02/26/25 07:59 Pulse 80 02/26/25 07:59 Respiratory Rate 16 02/26/25 07:59 Blood Pressure 123/57 L 02/26/25 07:59 Blood Pressure Position Sitting 02/26/25 07:59 Pulse Oximetry 98 02/26/25 07:59 Oxygen Delivery Method Room Air 02/26/25 07:59 Oxygen Flow Rate 0 02/26/25 07:59 Pain Level 0 02/26/25 07:59 Medical Decision Making This dictation utilizes [id number]-lu-[id number] dictation software and may contain unedited grammatical errors. 74 year-old male presents to ED today by POV/ambulating with a chief complaint of return from visit yesterday after headache with tele-neurology consult recommending MRI today, endorsing some episodes of some R parietal scalp pain with recent shingles to this area that has resolved. Quality described as tenderness to light touch, searing pain to the right parietal scalp, no radiation to facial droop, neck stiffness, fever, visual changes, numbness tingling or weakness. Severity is described as severe. Palliating factors include completed treatment for shingles in recent past. Provoking factors include light touch. Patients' medical history: BPH, recent shingles outbreak to this dermatome, mild cognitive impairment, prostate cancer, impaired fasting glucose. Family and social history: Noncontributory. Pertinent exam findings / vital signs include neuro intact, tenderness to light touch in right parietal scalp, no nuchal rigidity, no lesions of skin to this area. Differential / pathologies of concern include trigeminal neuralgia, postherpetic neuralgia, GCA. Diagnostic studies of: - Added CRP and ESR due to tenderness of light touch, performed MRI and MRI of the brain - all studies negative Interventions of: - No further interventions necessary, patient already has gabapentin and can continue max dosing Tylenol and ibuprofen. ED Course/Assessment/Plan: 74-year-old male presents for return visit for MRI this morning, he is tenderness to light touch in the right parietal scalp he had a recent shingles outbreak there that is fully resolved, has no lesions consistent with German English to this area and no facial droop, I did add a CRP and ESR due to possible GCA symptomology which is negative, MRI and MRA of the brain showed no acute findings, counseled on likely postherpetic neuralgia and recommend he follow-up with outpatient neurology and his primary care provider as well strict return for any emergent concerns. Findings not consistent with [place] English, cerebral vascular pathology, intracranial hemorrhage, recurrent shingles. Disposition of postherpetic neuralgia. Patient verbalized understanding of the plan and return to ED criteria and engaged in shared decision making. Medical Records Medical records reviewed: Yes I reviewed the patient's medical records. Imaging Data Radiologic Study: Attestation: I personally reviewed and interpreted this imaging study as follows: Imaging: MRI Radiologist's impression: EXAM: MR BRAIN WO CLINICAL HISTORY: headache TECHNIQUE: Multiplanar multisequence MRI of the brain was performed. COMPARISON: MR MR BRAIN WO/W from 04/07/[address] BRAIN NECK CTA from 02/25/2025 CTA 02/26/2025 FINDINGS: CEREBRAL PARENCHYMA: There is no evidence of intracranial hemorrhage, mass effect, or shift of midline structures. There are no extra-axial fluid collections. Ventricles are not enlarged or shifted. There is no significant focal signal abnormality in the cerebellar hemispheres nor within the vidhi, midbrain, and thalami. There is no abnormal signal abnormality in the periventricular white matter. There is no significant focal signal abnormality evident on diffusion imaging to suggest acute ischemic event. PITUITARY GLAND: No mass nor parasellar abnormality. No obvious abnormality in the cavernous sinuses. FLOW VOIDS: The expected flow void are noted. No evidence of obvious aneurysm nor obvious vascular malformation. PARANASAL SINUSES: The visualized paranasal sinuses appear unremarkable. No obvious finding ORBITS: No obvious findings. IMPRESSION: No significant intracranial findings on this noninfused MRI scan of the brain. Radiologic Study #2: Attestation: I personally reviewed and interpreted this imaging study as follows: Imaging: MRI Radiologist's impression: EXAM: MR ANGIO BRAIN WO CLINICAL HISTORY: ?GCA, R temporal pain TECHNIQUE: Performed on 1.5 brittny unit with [id number] sequence. No IV contrast COMPARISON: MR MR BRAIN WO from 02/26/2025 FINDINGS: ANTERIOR CIRCULATION: Both internal carotid arteries are patent in the skull base and cavernous sinuses. Supraclinoid aspects are patent. Both A1 segments are patent as are the anterior cerebral arteries and there is no evidence of aneurysm at the level the anterior communicating artery. Both middle cerebral arteries are patent without evidence of significant stenosis nor intraluminal thrombus and there are no aneurysms in these vessels evident. POSTERIOR CIRCULATION: Basilar artery is formed by both vertebral arteries the skull base on the basilar artery ascends with normal luminal diameter. Distally gives off superior cerebellar arteries. Above this level it terminates as patent left posterior cerebral artery. The right posterior cerebral artery is patent but predominantly fed by persistent circulation-posterior communicating artery on the right side of the qfmowe-ub-Gdccss. There is no aneurysm at the level of the basilar artery tip nor elsewhere in the caonaj-ja-Fdaorm. No evidence of obvious venous sinus thrombosis. IMPRESSION: 1. Patent intracranial arteries. No significant stenosis nor thrombosis and no dissection. No aneurysms evident Called by myself to ER provider 02/26/2025 at 9:40 a.m. Lab Data Lab results reviewed: Yes I reviewed the patient's lab results. Labs: Laboratory Tests Range/Units 02/26/25 08:56 ESR (0-20) mm/hr 12 C-Reactive Protein (<or=0.5) mg/dL < 0.50 Quality:SDOH Health Related Social Needs: Health related social needs details N/A PFSH All Active Problems (Updated 02/26/25 @ 10:13 by YOLIE Morales) Postherpetic neuralgia (Acute) Headache (Acute) Shingles outbreak (Acute) Sleep disturbances (Acute) Nevus (Acute) Sensitive skin (Acute) Depression (Chronic) Anxiety (Chronic) Infected sebaceous cyst of skin (Acute) Low serum testosterone level in male (Acute) Insomnia (Acute) Hematochezia (Acute) Noted on 05/2023 for [facility] oncology visit–1 spoke to patient he denies symptoms. 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) Osteoarthritis (Chronic 04/21/13) Seen on L foot x-ray, likely other locations Seborrheic dermatitis, unspecified (Chronic 07/09/11) Mustache Medical History (Updated 02/26/25 @ 10:13 by YOLIE Morales) Benign prostatic hyperplasia Elevated PSA Diverticulosis of colon without diverticulitis (04/21/13) Seen on 2005 colonoscopy Right shoulder pain (09/24/16) Closed fracture of thoracic vertebral body (05/02/18) T2, T3 and T5 endplate fractures Dens fracture (05/02/18) Surgical History Colonoscopy - IV Sedation (~2005) Family History Father Alcohol abuse Personal history of malignant neoplasm thoat Mother Breast cancer Daughter No problems noted. Son No problems noted. 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 Pets and animals: Yes Pets and animals: cat(s) Sexually active: No Do you think of yourself as: straight/heterosexual Current gender identity: male What is your relationship status?: How often do you talk on the phone with friends or family?: three or more times per week How often do you get together with friends or relatives?: three or more times per week How often do you attend episcopalian or taoist services?: decline to answer Do you belong to any clubs or organized social groups?: yes Panel score (0-1 are the most socially isolated patients): 2 What type of physical activity do you participate in: weight lifting and running Duration: 15-30 minutes/day Frequency: 3-4 times per week Rhoda/Episcopalian: Denominational Special rhoda needs: No Seatbelt use: always Helmet use: No (No Reason) Drive intox or ride w/intox driver trainer: No Do you feel safe at home: Yes Do you feel safe in your relationship?: Yes
--- NOTE | 2025-02-26 08:20 | DI.MRI_ITS ---
Exam(s) MR ANGIO BRAIN WO EXAM: MR ANGIO BRAIN WO CLINICAL HISTORY: ?GCA, R temporal pain TECHNIQUE: Performed on 1.5 brittny unit with [id number] sequence. No IV contrast COMPARISON: MR MR BRAIN WO from 02/26/2025 FINDINGS: ANTERIOR CIRCULATION: Both internal carotid arteries are patent in the skull base and cavernous sinuses. Supraclinoid aspects are patent. Both A1 segments are patent as are the anterior cerebral arteries and there is no evidence of aneurysm at the level the anterior communicating artery. Both middle cerebral arteries are patent without evidence of significant stenosis nor intraluminal thrombus and there are no aneurysms in these vessels evident. POSTERIOR CIRCULATION: Basilar artery is formed by both vertebral arteries the skull base on the basilar artery ascends with normal luminal diameter. Distally gives off superior cerebellar arteries. Above this level it terminates as patent left posterior cerebral artery. The right posterior cerebral artery is patent but predominantly fed by persistent circulation-posterior communicating artery on the right side of the xkprdf-wa-Uzwdlw. There is no aneurysm at the level of the basilar artery tip nor elsewhere in the eceprt-lt-Vgxtwh. No evidence of obvious venous sinus thrombosis. IMPRESSION: 1. Patent intracranial arteries. No significant stenosis nor thrombosis and no dissection. No aneurysms evident Called by myself to ER provider 02/26/2025 at 9:40 a.m. DATA REPOSITORY:
[2025-02-26 09:04] LABS: ESR 12 mm/hr (0-20)
[2025-02-26 09:14] LABS: C-Reactive Protein < 0.50 mg/dL (<or=0.5)
[2025-02-26 10:18] VITALS: BP 117/68; PULSE 65; RESP 16; O2SAT 97
== END 2025-02-26 10:22 | disposition home or self-care (01) ==
PROVIDERS: Emergency Provider Physician Assistant; PCP Nurse Practitioner Family
DX: B02.29 Other postherpetic nervous system involvement (principal); R51.9 Headache, unspecified
CPT/HCPCS: 99283; 99284; 70544; 85652; 70551; 86140

== ENCOUNTER 2025-02-27 00:43 | Outpatient (CLI) | payer MEDICARE, BC, SELFPAY ==
[2025-02-27 08:53] LABS: Hemoglobin A1C 6.1 % (<5.7)
[2025-02-27 09:06] LABS: Cholesterol 210 mg/dL (<200); HDL Cholesterol 76 mg/dL (>or=40)
== END 2025-02-27 00:44 | disposition home or self-care (01) ==
LOC: LBO 00:43
PROVIDERS: PCP Nurse Practitioner Family; Visit Provider Nurse Practitioner Family
DX: E78.5 Hyperlipidemia, unspecified (principal); R73.01 Impaired fasting glucose
CPT/HCPCS: 36415; 80061; 83036

== ENCOUNTER 2025-04-10 07:11 | Outpatient (CLI) | payer MEDICARE, BC, SELFPAY ==
[2025-04-10 19:14] LABS: PSA, Diagnostic 0.1 ng/mL (<=6.5)
== END 2025-04-10 07:12 | disposition home or self-care (01) ==
LOC: LBO 07:11
PROVIDERS: PCP Nurse Practitioner Family; Visit Provider Urology
DX: C61 Malignant neoplasm of prostate (principal)
CPT/HCPCS: 36415; 84403; 84153

== ENCOUNTER → 2025-04-17 08:30 | Outpatient (BNVA) | payer MEDICARE, BC, SELFPAY | PROVIDERS: PCP Nurse Practitioner Family; Referring Provider Nurse Practitioner Family; Visit Provider Urology | DX: C61 Malignant neoplasm of prostate (principal) | CPT/HCPCS: 99213 ==